=== PATIENT | female | born 1940 | race Caucasian/White ===

== ENCOUNTER 2017-03-17 13:16 | Emergency (ER) | payer MEDICARE, OTHER ==
[2017-03-17 13:24] VITALS: BP 115/64
--- NOTE | 2017-03-17 14:03 | UC ---
Skin Complaint HPI - HPI Summary HPI Summary: NOTICED AN ITCHY SPOT BEHIND LEFT KNEE 2 DAYS AGO. WASN'T SURE WHAT IT WAS. SCRATCHED AT IT A LOT THEN SQUEEZED IT AND TWEEZED IT AND STUCK IT WITH A PIN. NOW HERE CONCERNED IT MAY HAVE BEEN A TICK. NO FEVERS, NINA, MUSCLE ACHES OR JOINT PAIN. - History of Current Complaint Chief Complaint: [employer] Time Seen by Provider: 03/17/17 13:54 Stated Complaint: TICK ON BACK OF KNEE Hx Obtained From: Patient Onset/Duration: Sudden Onset, Lasting Days, Still Present Timing: Constant Onset Severity: Mild Current Severity: None Pain Intensity: 0 Pain Scale Used: 0-10 Numeric Location: Discrete - BEHIND LEFT KNEE Aggravating: Nothing Alleviating: Nothing Associated Signs & Symptoms: Positive: Negative - Allergy/Home Medications Allergies/Adverse Reactions: Allergies Allergy/AdvReac Type Severity Reaction Status Date / Time Chicken Allergy Allergy POSITIVE Verified 03/17/17 13:18 ALLERGY TEST Ibuprofen AdvReac Unknown GI Upset Verified 03/17/17 13:18 NUTS Allergy Unknown INSIDE OF Uncoded 03/17/17 13:18 MOUTH ROUGH ENVIRONMENTAL Allergy POST NASAL Uncoded 03/17/17 13:18 DRIP Review of Systems Constitutional: Negative Skin: Other - BUG BITE BEHIND LEFT KNEE Respiratory: Negative Cardiovascular: Negative Gastrointestinal: Negative Musculoskeletal: Negative All Other Systems Reviewed And Are Negative: Yes PMH/Surg Hx/FS Hx/Imm Hx Respiratory History: Asthma Cancer History: Breast Cancer - Surgical History Surgical History: Yes Surgery Procedure, Year, and Place: SEGMENTAL RIGHT BREAST MASTECTOMY, 1995, Lt BREAST MASTECTOMY 2011. PESSARY - WILL HAVE REMOVED PRIOR TO MRI. CATARACTS - BLACK - Family History Known Family History: Negative: Hypertension, Diabetes - Social History Alcohol Use: None Substance Use Type: None Smoking Status (MU): Never Smoked Tobacco Physical Exam Triage Information Reviewed: Yes Appearance: Well-Appearing, No Pain Distress, Well-Nourished Vital Signs: Initial Vital Signs Temp 97.9 F 03/17/17 13:21 Pulse 64 03/17/17 13:21 Resp 16 03/17/17 13:21 BP 115/64 03/17/17 13:21 Pulse Ox 99 03/17/17 13:21 Vital Signs Reviewed: Yes Eyes: Positive: Conjunctiva Clear ENT: Positive: Hearing grossly normal Neck: Positive: Supple Respiratory: Positive: No respiratory distress, No accessory muscle use Cardiovascular: Positive: Pulses Normal Abdomen Description: Positive: Soft Musculoskeletal: Positive: No Edema Neurological: Positive: Alert Psychological: Positive: Age Appropriate Behavior Skin: Positive: Other - 2MM EXCORIATED SPOT LEFT POPLITEAL FOSSA. NO SURROUNDING ERYTHEMA. NO DRAINAGE. NOT TENDER Course/Dx - Diagnoses Provider Diagnoses: INSECT BITE Discharge - Discharge Plan Condition: Stable Disposition: HOME Patient Education Materials: Insect Bite or Sting (ED) Referrals: Sparkle Cancino MD [Primary Care Provider] - If Needed Additional Instructions: NO SIGN OF A TICK AT THE MOMENT. YOUR SKIN LESION MAY BE FROM A TICK BITE OR ANY OTHER INSECT. NO INTERVENTION REQUIRED AT PRESENT. BE VIGILANT OF YOUR SYMPTOMS AND SEEK FOLLOW-UP IF YOU DEVELOP SPREADING REDNESS OF THE SKIN, PURULENT DRAINAGE, FEVER, INCREASED PAIN OR ANY OTHER CONCERNING SYMPTOMS. SYMPTOMS OF LYME INCLUDE FEVER, HEADACHE, JOINT PAIN, MUSCLE ACHES, TARGET RASH AND OVERALL MALAISE.
== END 2017-03-17 14:11 | disposition home or self-care (01) ==
LOC: UCEAST 13:16
DX: S80.262A Insect bite (nonvenomous), left knee, initial encounter (principal); W57.XXXA Bitten or stung by nonvenomous insect and other nonvenomous arthropods, initial encounter; Y93.9 Activity, unspecified; Y92.9 Unspecified place or not applicable; J45.909 Unspecified asthma, uncomplicated; Z88.6 Allergy status to analgesic agent; Z85.3 Personal history of malignant neoplasm of breast; Z90.13 Acquired absence of bilateral breasts and nipples
CPT/HCPCS: 99211; G0463

== ENCOUNTER 2018-11-02 08:18 | Emergency (ER) | payer MEDICARE, OTHER ==
[2018-11-02 08:30] VITALS: BP 132/72
--- OUTSIDE RECORDS SUMMARY | 2018-11-02 08:45 | XMS REPORT | Continuity of Care Document ---
:1940 External Reference #:[id number] Author Name Jessi Falk MD Address [address] [facility] [place] [address] Care Team Providers Name Role Phone Nila Cancino Primary Care Physician Unavailable Payers Date Identification Numbers Payment Provider Subscriber Policy Number: [id number] [place] Verena Velasco PayID: [id number] [address] [address] [place] [address] Policy Number: [id number] [facility]co Group Number: [id number] [address] PayID: [id number] [place] [address] Advance Directives Description No Information Available Problems Date Description Provider Status Onset: 11/17/2011 Personal history of primary Gay Mccormick MD Active malignant neoplasm of breast Onset: 11/17/2011 Midline cystocele Gay Mccormick MD Active Onset: 08/16/2012 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 Family History Date Family Member(s) Observation Comments Father due to Heart Disease () Mother due to Old Age () Number of Children 2 First Son A&W First Daughter Skin Cancer Melanoma Number of Siblings Siblings: 2 First Brother due to Stomach Cancer () Second Brother Pacemaker Second Brother due to Parkinsons () Paternal Grandfather due to Unknown Causes () Paternal Grandmother due to Unknown Causes () Maternal Grandfather due to Unknown Causes () Maternal Grandmother due to Old Age () Social History Type Date Description Comments Sex Unknown Marital Status Patient is Living Situation Patient lives alone Diet Diet is healthy and well balanced 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 Cigarette Use Never smoked cigarettes Alcohol Drinks alcohol occasionally Tobacco Use Start: Unknown Patient has never smoked Drug Use Denies drug use Smoking Status Reviewed: 10/19/18 Patient has never smoked Daily Caffeine Drinks on average 2 cups of coffee a day Exercise Type/Frequency Exercises rarely Current Seat Belt/Car Seat Always uses a seat belt Currently Active The patient is currently not sexually active STD's No STD history Allergies, Adverse Reactions, Alerts Date Description Reaction Status Severity Comments 03/01/2005 Ibuprofen Active Medications Medication Date Status Form Strength Qnty SIG Indications Ordering Provider Fluconazole Active Tablets 150mg 2tabs 1 by Jessikera Velez mouth lacey Falk MD repeat in 72 hours Trimo-M[place]field Active Gel 0.025% 1Tube 1 time Mahriyo 013 weekly SAMUEL Amaral Advair Diskus Active Unknown 000 Aspirin Active Unknown 000 Calcium + D Active Unknown 000 Centrum Active Unknown 000 Carnitine Active Unknown 000 Clarinex Active Unknown 000 Methotrexate Active Unknown 000 Xyzal Allergy Active Unknown 24HR 000 Cipro Hx Tablets 500mg 14tabs take 1 Yara 019 - by mouth Hensley, twice a CNM 019 day x 7 days Nitrofurantoin Hx Capsules 100mg 14caps 1 by Gary Monohyd Macro 019 - mouth Srivastava, twice a CNM 019 day for 7 days Cipro Hx Tablets 500mg 14tabs take 1 Jessi 016 - by mouth Dileep, twice a 016 day x 7 days Ciprofloxacin HCL Hx Tablets 500mg 10tabs take 1 Harsha A. 015 - by mouth Gelber, twice a M.D. 015 day x 5 Trimo-Mansfield Hx Gel 0.025% 1Tube 1 time Gay 013 - weekly Nikkhah Balaji Mccormick MD Nasonex Hx Unknown Intranasal [place] 000 - 012 Fosamax 00/00/0 Hx Unknown 000 - 009 Fosamax Hx Unknown - 012 Claritin Hx Unknown - 013 Tamoxifen Citrate Hx Unknown - 018 Desloratadine Hx Unknown 000 - 015 Vitamin E Hx Capsules 400Unit Unknown - 015 Jublia Hx Unknown - 018 Medications Administered in Office Medication Date Status Form Strength Qnty SIG Indications Ordering Provider PT SCRN Tbco Administered Injection Jessi Id as Non User 019 MD Dileep Doc Med RSN No Administered Injection Tammy Tbco SCRN 019 SAMUEL Page PT SCRN Tbco Administered Injection Tammy Id as Non User 019 SAMUEL Page PT SCRN Tbco Administered Injection Jessi Id as Non User 018 MD Dileep PT SCRN Tbco Administered Injection Jessi Id as Non User 018 MD Dileep Immunizations Description No Information Available Vital Signs Date Vital Result Comment 10/19/2018 10:54am BP Systolic 124 mmHg BP Diastolic 60 mmHg Height 66 inches 5'6" Weight 143.00 lb BMI (Body Mass Index) 23.1 kg/m2 Last Menstrual Period 4650191 3 Parity 2 09/03/2018 2:51pm BP Systolic 116 mmHg BP Diastolic 60 mmHg Body Temperature 97.4 F Height 66 inches 5'6" Weight 145.00 lb BMI (Body Mass Index) 23.4 kg/m2 Last Menstrual Period 4407630 3 Parity 2 07/18/2018 9:08am BP Systolic 122 mmHg BP Diastolic 66 mmHg Height 66 inches 5'6" Weight 145.00 lb BMI (Body Mass Index) 23.4 kg/m2 3 Parity 2 03/26/2018 2:39pm BP Systolic 124 mmHg BP Diastolic 66 mmHg Height 66.25 inches 5'6.25" Weight 142.00 lb BMI (Body Mass Index) 22.7 kg/m2 05/17/2017 8:53am BP Systolic 110 mmHg BP Diastolic 64 mmHg Height 66.25 inches 5'6.25" Weight 136.00 lb BMI (Body Mass Index) 21.8 kg/m2 Last Menstrual Period [id number] 3 Parity 2 01/24/2017 10:17am BP Systolic 110 mmHg BP Diastolic 60 mmHg Height 66.25 inches 5'6.25" Weight 133.00 lb BMI (Body Mass Index) 21.3 kg/m2 Last Menstrual Period 1218869 3 Parity 2 10/25/2016 11:12am BP Systolic 120 mmHg BP Diastolic 64 mmHg Height 66.25 inches 5'6.25" Weight 131.00 lb BMI (Body Mass Index) 21.0 kg/m2 Last Menstrual Period 6936736 3 Parity 2 07/05/2016 1:21pm BP Systolic 118 mmHg BP Diastolic 60 mmHg Height 66.25 inches 5'6.25" Weight 136.00 lb BMI (Body Mass Index) 21.8 kg/m2 Last Menstrual Period 1038523 3 Parity 2 05/23/2016 10:37am BP Systolic 120 mmHg BP Diastolic 60 mmHg Height 66.25 inches 5'6.25" Weight 134.00 lb BMI (Body Mass Index) 21.5 kg/m2 Last Menstrual Period 7254694 3 Parity 2 03/07/2016 11:11am BP Systolic 122 mmHg BP Diastolic 58 mmHg Height 66.25 inches 5'6.25" Weight 134.00 lb BMI (Body Mass Index) 21.5 kg/m2 Last Menstrual Period 1825413 3 Parity 2 12/14/2015 2:00pm BP Systolic 126 mmHg BP Diastolic 72 mmHg Height 66.25 inches 5'6.25" Weight 140.00 lb BMI (Body Mass Index) 22.4 kg/m2 Last Menstrual Period 5600990 3 Parity 2 11/19/2015 12:53pm BP Systolic 110 mmHg BP Diastolic 64 mmHg Height 66.25 inches 5'6.25" Weight 139.00 lb BMI (Body Mass Index) 22.3 kg/m2 Last Menstrual Period 6420182 3 Parity 2 08/17/2015 12:41pm BP Systolic 116 mmHg BP Diastolic 64 mmHg Height 66.25 inches 5'6.25" Weight 140.00 lb last visit BMI (Body Mass Index) 22.4 kg/m2 Last Menstrual Period 1862128 3 Parity 2 07/07/2015 11:18am BP Systolic 122 mmHg BP Diastolic 66 mmHg Height 66.25 inches 5'6.25" Weight 140.00 lb BMI (Body Mass Index) 22.4 kg/m2 Last Menstrual Period 5833631 3 Parity 2 04/14/2015 1:50pm BP Systolic 116 mmHg BP Diastolic 58 mmHg Height 66.25 inches 5'6.25" Weight 132.00 lb BMI (Body Mass Index) 21.1 kg/m2 Last Menstrual Period 6033709 3 Parity 2 01/09/2015 3:22pm BP Systolic 124 mmHg BP Diastolic 60 mmHg Height 67.5 inches 5'7.50" Weight 139.00 lb BMI (Body Mass Index) 21.4 kg/m2 Last Menstrual Period 2435175 3 Parity 2 12/04/2014 12:50pm BP Systolic 118 mmHg BP Diastolic 68 mmHg Height 67.5 inches 5'7.50" Weight 139.00 lb BMI (Body Mass Index) 21.4 kg/m2 Last Menstrual Period 0558098 3 Parity 2 09/30/2014 1:47pm BP Systolic 120 mmHg BP Diastolic 72 mmHg Height 67.5 inches 5'7.50" Weight 140.00 lb BMI (Body Mass Index) 21.6 kg/m2 Last Menstrual Period 7217698 3 Parity 2 04/08/2014 9:39am BP Systolic 104 mmHg BP Diastolic 62 mmHg Height 67.5 inches 5'7.50" Weight 136.00 lb BMI (Body Mass Index) 21.0 kg/m2 3 Parity 2 12/04/2013 1:58pm BP Systolic 118 mmHg BP Diastolic 76 mmHg Height 67 inches 5'7" Weight 139.00 lb BMI (Body Mass Index) 21.8 kg/m2 3 Parity 2 09/12/2013 2:01pm BP Systolic 112 mmHg BP Diastolic 64 mmHg Height 67 inches 5'7" Weight 138.00 lb BMI (Body Mass Index) 21.6 kg/m2 3 Parity 2 06/13/2013 2:14pm BP Systolic 100 mmHg BP Diastolic 56 mmHg Height 67 inches 5'7" Weight 138.00 lb BMI (Body Mass Index) 21.6 kg/m2 3 Parity 2 03/14/2013 1:42pm BP Systolic 106 mmHg BP Diastolic 62 mmHg Height 67 inches 5'7" Weight 131.00 lb BMI (Body Mass Index) 20.5 kg/m2 3 Parity 2 01/16/2013 11:42am BP Systolic 122 mmHg BP Diastolic 72 mmHg Weight 134.00 lb 12/07/2012 9:10am BP Systolic 108 mmHg BP Diastolic 68 mmHg Height 67 inches 5'7" Weight 136.00 lb BMI (Body Mass Index) 21.3 kg/m2 3 Parity 2 11/23/2012 9:46am BP Systolic 110 mmHg BP Diastolic 60 mmHg Height 67 inches 5'7" Weight 136.00 lb BMI (Body Mass Index) 21.3 kg/m2 3 Parity 2 10/17/2012 11:05am BP Systolic 114 mmHg BP Diastolic 72 mmHg Height 67 inches 5'7" Weight 135.00 lb BMI (Body Mass Index) 21.1 kg/m2 3 Parity 2 09/12/2012 9:24am BP Systolic 122 mmHg BP Diastolic 80 mmHg Height 67 inches 5'7" Weight 138.00 lb BMI (Body Mass Index) 21.6 kg/m2 3 Parity 2 08/21/2012 9:16am BP Systolic 114 mmHg BP Diastolic 76 mmHg Height 67 inches 5'7" Weight 139.00 lb BMI (Body Mass Index) 21.8 kg/m2 3 Parity 2 08/16/2012 1:24pm BP Systolic 112 mmHg BP Diastolic 68 mmHg Height 67 inches 5'7" Weight 140.00 lb BMI (Body Mass Index) 21.9 kg/m2 3 Parity 2 08/09/2011 1:23pm BP Systolic 108 mmHg BP Diastolic 70 mmHg Height 67 inches 5'7" Weight 138.00 lb BMI (Body Mass Index) 21.6 kg/m2 3 Parity 2 06/14/2010 9:48am BP Systolic 118 mmHg BP Diastolic 82 mmHg Height 66.75 inches 5'6.75" Weight 138.00 lb BMI (Body Mass Index) 21.8 kg/m2 3 Parity 2 03/17/2010 1:22pm BP Systolic 120 mmHg BP Diastolic 62 mmHg Height 67 inches 5'7" Weight 136.00 lb BMI (Body Mass Index) 21.3 kg/m2 3 Parity 2 06/09/2009 9:35am BP Systolic 120 mmHg BP Diastolic 60 mmHg Height 68.25 inches 5'8.25" Weight 153.00 lb BMI (Body Mass Index) 23.1 kg/m2 3 Parity 2 04/13/2009 7:49am BP Systolic 100 mmHg BP Diastolic 60 mmHg Height 68.25 inches 5'8.25" Weight 146.00 lb BMI (Body Mass Index) 22.0 kg/m2 3 Parity 2 05/27/2008 1:42pm BP Systolic 118 mmHg BP Diastolic 64 mmHg Height 68.25 inches 5'8.25" Weight 150.00 lb BMI (Body Mass Index) 22.6 kg/m2 Last Menstrual Period 0 Approx 16 yrs ago 3 Parity 2 04/08/2008 9:38am BP Systolic 126 mmHg BP Diastolic 68 mmHg Height 68.25 inches 5'8.25" Weight 149.00 lb BMI (Body Mass Index) 22.5 kg/m2 Last Menstrual Period 0 approx 16 yrs ago 04/20/2007 1:18pm BP Systolic 112 mmHg BP Diastolic 68 mmHg Height 68.25 inches 5'8.25" Weight 147.00 lb BMI (Body Mass Index) 22.2 kg/m2 03/31/2006 2:54pm BP Systolic 120 mmHg BP Diastolic 70 mmHg Height 68 inches 5'8" Weight 141.00 lb BMI (Body Mass Index) 21.4 kg/m2 03/01/2005 1:05pm BP Systolic 120 mmHg BP Diastolic 72 mmHg Height 68 inches 5'8" Weight 137.00 lb BMI (Body Mass Index) 20.8 kg/m2 4 Parity 3 Results Test Date Facility Test Result H/L Range Note Urine Culture And 09/21/2018 [facility] Urine Culture SEE RESULT 1 [place] [address] BELOW [phone] Urine Culture And 12/15/2015 [facility] Urine Culture SEE RESULT 2 [place] [address] BELOW [phone] Laboratory test 08/17/2015 [facility] Cytology SEE RESULT 3 [place] [address] BELOW [phone] Human Papilloma Virus Rna Negative N Negative 4 Laboratory test 07/07/2015 [facility] Culture Genital & SEE RESULT 5 [place] [address] Sensitivity BELOW [phone] Urine Culture And 12/04/2014 [facility] Urine Culture (SEE NOTE ) 6 [place] [address] [phone] Laboratory test 08/09/2011 [facility] Cytology [address] [place] [address] ----- <SEE [phone] NOTE> Laboratory test 06/14/2010 [facility] Cytology [address] [place] [address] ----- <SEE [phone] NOTE> Laboratory test 06/09/2009 [facility]ology [address] [place] [address] ----- <SEE [phone] NOTE> Laboratory test 05/27/2008 [facility] Cytology [address] [place] [address] ----- <SEE [phone] NOTE> Laboratory test 04/20/2007 [facility] Cytology [address] [place] [address] ----- <SEE [phone] NOTE> Laboratory test 04/04/2006 [facility] Cytology [address] [place] [address] ----- <SEE [phone] NOTE> 1 SEE RESULT BELOW Name: VERENA VELASCO : [address]: Lauren Hensley [facility] Acct: [id number] Unit: [id number] AGE: 78 Location: [facility] Re09/21/18 SEX: F Status: REG REF SPEC: [id number] ANKITA: 09/21/18-[address]: Lauren Hensley [facility] REQ: [id number] RECD: 09/21/18 STATUS: COMP _ SOURCE: URINE [facility]: ORDERED: Urine Culture COMMENTS: [id number] Urine Source: Random Procedure Result Reported Site Urine Culture Final 09/23/18- 0823 ML Organism 1 ESCHERICHIA COLI [place] Count >100,000 (Many) CFU/ML 1. ESCHERICHIA COLI M.I.C. RX --------- ------ Ampicillin 8 S Cefazolin <=4 S Cefepime <=1 S Ceftriaxone <=1 S Ciprofloxacin <=0.25 S Gentamicin <=1 S Levofloxacin <=0.12 S Meropenem <=0.25 S Nitrofurantoin 32 S Tetracycline <=1 S Pipercillin/Tazobactam <=4 S Trimethoprim/Sulfamethoxazole <=20 S Amoxicillin/Clavulanic Acid <=2 S Aztreonam <=1 S Contact the Microbiology Department for any additional antibiotic reporting. * ML - Main Lab . END OF REPORT DEPARTMENT OF PATHOLOGY, [address] [place] [address] Shmuel Velazquez M.D. Director [facility] # [id number] 2 SEE RESULT BELOW Name: VERENA VELASCO : [address]: Olena Irizarry NP Acct: [id number] Unit: [id number] AGE: 75 Location: [facility] Re12/15/15 SEX: F Status: REG REF SPEC: [id number] ANKITA: 12/15/15-1038 [facility] DR: Olena Irizarry NP REQ: [id number] RECD: 12/15/15 STATUS: COMP _ SOURCE: URINE SPDESC: ORDERED: Urine Culture COMMENTS: [id number] Procedure Result Reported Site Urine Culture Final 12/18/15- 904 ML Organism 1 ENTEROCOCCUS FAECALIS [place] Count 10-25,000 (Moderate) CFU/ML 1. ENTEROCOCCUS FAECALIS M.I.C. RX --------- ------ Ampicillin <=2 S Penicillin 2 S Ciprofloxacin <=0.5 S Gentamicin High Level S Levofloxacin 0.5 S Linezolid 2 S Nitrofurantoin <=16 S * Quinupristin/Dalfopristin 4 R * Streptomycin High Level S Tetracycline >=16 R Tigecycline <=0.12 S Vancomycin 2 S Imipenem-Deduced S * Ampicillin/Sulbactam-Deduced S * These antibiotics are not available in the [facility] Formulary Contact the Microbiology Department for any additional antibiotic reporting. * ML - MAIN LAB (PSYCHIATRIC1) . END OF REPORT * ML=Testing performed at Main Lab DEPARTMENT OF PATHOLOGY, [address] [place] [address] Shmuel Velazquez M.D. Director [facility] # [id number] 3 SEE RESULT BELOW Name: VERENA VELASCO : [address]: Jessi Falk MD Acct: [id number] Unit: [id number] AGE: 75 Location: [facility] Re08/17/15 SEX: F Status: REG REF SPEC: [id number] ANKITA: 08/17/[address] [facility] [address]: Jessi Falk MD REQ: [id number] RECD: 08/17/15 STATUS: SOUT _ ORDERED: IMAGE ANALYSIS, HPV/Thin Prep FINAL DIAGNOSIS Negative for Intraepithelial lesion or Malignancy A. Ectocervical/Endocervical Specimen Adequacy: Satisfactory of evaluation Transformation zone component identified Patient Information: HPV: High risk HPV RNA testing regardless of pap results. Actual Specimen Date: 08/17/15 LMP If Unknown: 1995 Date of Last Specimen: 08/09/11 Post Menopausal?: Y Date Time Test Result Flag (u) Normal Range 08/17/15 1334 HPV RNA Negative Negative The high-risk HPV types detected by the assay include: 16, 18, 31, 33, 35, 39, 45, 51, 52, 56, 58, 59, 66, and 68. Signed (signature on file) CHARLEE Salgado (ASCP) 08/18 1416 This Pap test was evaluated with the assistance of the [employer] Test Imaging System. Due to cytologic findings at the customer sales service manager microscope, comprehensive manual rescreening by a Department Operations Manager may be required. The Pap Smear is a screening test designed to aid in the detection of premalignant and malignant conditions of the uterine cervix. It is not a diagnostic procedure and should not be used as the sole means of detecting cervical cancer. Both false- positive and false- negative reports do occur. Depending on your risk status, a Pap smear should be obtained and evaluated every 1-3 years. END OF REPORT * ML=Testing performed at Main Lab DEPARTMENT OF PATHOLOGY, [address] [place] [address] Shmuel Velazquez M.D. Director [facility] # [id number] 4 The high-risk HPV types detected by the assay include: 16, 18, 31, 33, 35, 39, 45, 51, 52, 56, 58, 59, 66, and 68. 5 SEE RESULT BELOW Name: VERENA VELASCO Dre : [address]: Olena Irizarry NP Acct: [id number] Unit: [id number] AGE: 75 Location: [facility] Re07/07/15 SEX: F Status: REG REF SPEC: [id number] ANKITA: 07/07/15-1252 [facility] [address]: Olena Irizarry NP REQ: [id number] RECD: 07/07/15 STATUS: COMP _ SOURCE: VAGINAL SPDESC: ORDERED: Genital Culture Procedure Result Reported Site Genital Culture Final 07/09/15- 1130 ML Organism 1 NORMAL CLEMENTE Quantity 3+ * ML - MAIN LAB (PSYCHIATRIC1) . END OF REPORT * ML=Testing performed at Main Lab DEPARTMENT OF PATHOLOGY, [facility] [employer] [place], [place] [address] Shmuel Velazquez M.D. Director [facility] # [id number] 6 RUN DATE: 12/07/14 [facility] LAB LIVE PAGE 1 RUN TIME: 827 [facility] [employer] [place], [place] [address] Specimen Inquiry Name: VERENA VELASCO : [address]: Olena Irizarry NP Acct: [id number] Unit: [id number] AGE: 74 Location: [facility] Re12/04/14 SEX: F Status: REG REF SPEC: [id number] ANKITA: 12/04/14-8 [facility] [address]: Olena Irizarry NP REQ: [id number] RECD: 12/04/14 STATUS: COMP _ SOURCE: URINE SPDESC: ORDERED: Urine Culture QUERIES: Provider Requisition # [id number] Procedure Result Verified Site Urine Culture Final 12/07/14- 826 ML Organism 1 ENTEROCOCCUS SPECIES GP D Chino Count 75-100,000 (Many) CFU/ML 1. ENTEROCOCCUS SPECIES GP D M.I.C. RX --------- ------ Ampicillin <=2 S Penicillin 2 S Ciprofloxacin <=0.5 S Gentamicin High Level S Levofloxacin 1 S Linezolid 2 S Nitrofurantoin <=16 S * Quinupristin/Dalfopristin 4 R * Streptomycin High Level S Tetracycline >=16 R Tigecycline <=0.12 S Vancomycin 2 S Imipenem-Deduced S * Ampicillin/Sulbactam-Deduced S * These antibiotics are not available in the [facility] Formulary Contact the Microbiology Department for any additional antibiotic reporting. * ML - MAIN LAB ([facility]) . END OF REPORT * ML=Testing performed at Main Lab DEPARTMENT OF PATHOLOGY, [address] [place] [address] Shmuel Velazquez M.D. Director [facility] # [id number] 7 --- RUN DATE: 08/10/11 [facility] NMI LIVE PAGE 1 RUN TIME: 1600 Specimen Inquiry RUN USER: INTERFACE -- Name: VERENA VELASCO Dre Hawkins#: [id number] Status: REG REF Re08/09/11 Age/Sex: 71/F Unit#: [id number] Location: [facility] : 38 -- Specimen: [id number] SOUT Spec Date: 08/09/[address]: Gay Mccormick Spec Type: CYTOLOGY Received: 08/10/11-1254 Copies to: SOURCE ECTOCERVICAL/ENDOCERVICAL Thin Prep with Reflex HPV Test PATIENT INFORMATION ACTUAL COLLECTION DATE: 08/09/11 POST MENOPAUSAL? Yes DATE OF PRIOR SPECIMEN: 06/14/10 ADEQUACY OF SPECIMEN Satisfactory for evaluation * Transformation zone component cannot be definitely identified due to prese nce * of atrophy or other hormonal changes. * DIAGNOSIS NEGATIVE FOR INTRAEPITHELIAL LESION OR MALIGNANCY * This Pap test was evaluated with the assistance of the [employer] Pap Test Imaging System. The Pap Smear is a screening test designed to aid in the detection of premalign ant and malignant conditions of the uterine cervix. It is not a diagnostic procedure a nd should not be used as the sole means of detecting cervical cancer. Both false- positiv e and false-negative reports do occur. Depending on your risk status, a Pap smear irwin uld be obtained and evaluated every one to three years. Initial evaluation performed by Kvng COLEMAN([facility]) 08/10/11 Final Interpretation electronically signed by: Kvng COLEMAN([facility]) 08/10/11 1558 -- -- DEPARTMENT OF PATHOLOGY, [address] [place] [address] [facility] Permit #[id number] Shmuel Velazquez M.D. Director Bar Obrien M.D. Mobility Scooter Repairer Dir rody -- 8 --- RUN DATE: 06/15/10 [facility] NMI LIVE PAGE 1 RUN TIME: 1201 Specimen Inquiry RUN USER: INTERFACE -- Name: RODVERENA Accanne#: [id number] Status: REG REF Re06/14/10 Age/Sex: 70/F Unit#: [id number] Location: [facility] : 38 -- Specimen: [id number] SOUT Spec Date: 06/14/[address]: Ina becker MD Spec Type: CYTOLOGY Received: 06/15/10-3729 Copies to: SOURCE ECTOCERVICAL/ENDOCERVICAL Thin Prep with Reflex HPV Test PATIENT INFORMATION ACTUAL COLLECTION DATE: 06/14/10 ? No POST MENOPAUSAL? Yes HYSTERECTOMY? No DATE OF PRIOR SPECIMEN: 06/09/09 ADEQUACY OF SPECIMEN Satisfactory for evaluation * Transformation zone component cannot be definitely identified due to prese nce * of atrophy or other hormonal changes. * DIAGNOSIS NEGATIVE FOR INTRAEPITHELIAL LESION OR MALIGNANCY * This Pap test was evaluated with the assistance of the ThinPrep Pap Test Imaging System. The Pap Smear is a screening test designed to aid in the detection of premalign ant and malignant conditions of the uterine cervix. It is not a diagnostic procedure a nd should not be used as the sole means of detecting cervical cancer. Both false- positiv e and false-negative reports do occur. Depending on your risk status, a Pap smear irwin uld be obtained and evaluated every one to three years. Final Interpretation electronically signed by: Sarath CONTRERAS(ASCP) 06/15/10 115 9 -- -- DEPARTMENT OF PATHOLOGY, [address] [place] [address] [facility] #[id number] Shmuel Velazquez M.D. Director Bar Obrien M.D. Mobility Scooter Repairer rody -- 9 --- RUN DATE: 06/10/09 [facility] NMI LIVE PAGE 1 RUN TIME: 1042 Specimen Inquiry RUN USER: INTERFACE -- Name: VERENA VELASCO#: [id number] Status: REG REF Re06/09/09 Age/Sex: 69/F Unit#: [id number] Location: [facility] : 38 -- Specimen: [id number] SOUT Spec Date: 06/09/[address]: Ina becker MD Spec Type: CYTOLOGY Received: 06/10/09-899 Copies to: SOURCE ECTOCERVICAL/ENDOCERVICAL Thin Prep with Reflex HPV Test PATIENT INFORMATION ACTUAL COLLECTION DATE: 06/09/09 DATE OF PRIOR SPECIMEN: 05/27/08 PATIENT HISTORY: normal ADEQUACY OF SPECIMEN Satisfactory for evaluation * Transformation zone component cannot be definitely identified due to prese nce * of atrophy or other hormonal changes. * DIAGNOSIS NEGATIVE FOR INTRAEPITHELIAL LESION OR MALIGNANCY * This Pap test was evaluated with the assistance of the [employer] Pap Test Imaging System. The Pap Smear is a screening test designed to aid in the detection of premalign ant and malignant conditions of the uterine cervix. It is not a diagnostic procedure a nd should not be used as the sole means of detecting cervical cancer. Both false- positiv e and false-negative reports do occur. Depending on your risk status, a Pap smear irwin uld be obtained and evaluated every one to three years. Final Interpretation electronically signed by: Sarath CONTRERAS(ASCP) 06/10/09 104 1 -- -- DEPARTMENT OF PATHOLOGY, [address] [place] [address] [facility] Permit #[id number] Shmuel Velazquez M.D. Director Bar [place]rien M.D. Mobility Scooter Repairer Dir rody -- 10 ---- RUN DATE: 05/28/08 [facility] NMI LIVE PAGE 1 RUN TIME: 1508 Specimen Inquiry RUN USER: INTERFACE -- Name: VERENA VELASCO#: [id number] Status: REG REF Re05/27/08 Age/Sex: 67/F Unit#: [id number] Location: [facility] : 36 -- Specimen: [id number] ANITA Spec Date: 05/27/[address]: Yo almazan Jr, MD Spec Type: CYTOLOGY Received: 05/28/08-1127 Copies to: SOURCE ECTOCERVICAL/ENDOCERVICAL Thin Prep with Reflex HPV Test PATIENT INFORMATION ACTUAL COLLECTION DATE: 05/27/08 POST MENOPAUSAL? Yes DATE OF PRIOR SPECIMEN: 04/20/07 PATIENT HISTORY: Last menstrual period 16 yrs. ADEQUACY OF SPECIMEN Satisfactory for evaluation * Transformation zone component cannot be definitely identified due to prese nce * of atrophy or other hormonal changes. * DIAGNOSIS NEGATIVE FOR INTRAEPITHELIAL LESION OR MALIGNANCY * This Pap test was evaluated with the assistance of the [employer] Pap Test Imaging System. The Pap Smear is a screening test designed to aid in the detection of premalign ant and malignant conditions of the uterine cervix. It is not a diagnostic procedure a nd should not be used as the sole means of detecting cervical cancer. Both false- positive and false-negative reports do occur. Depending on your risk status, a Pap smear irwin uld be obtained and evaluated every one to three years. Final Interpretation electronically signed by: Sarath CONTRERAS(ASCP) 05/28/08 150 8 -- -- DEPARTMENT OF PATHOLOGY, [address] [place] [address] [facility] Permit #[id number] Shmuel Velazquez M.D. Director of Laboratories -- 11 ---- RUN DATE: 04/25/07 [facility] NMI LIVE PAGE 1 RUN TIME: 1052 Specimen Inquiry RUN USER: INTERFACE [id number] VERENA VELASCO 66/F <REG REF 04/20> ([id number]) Yo Guzman Jr, MD -- Specimen: [id number] SOUT Spec Date: 04/20/[address]: Yo almazan Jr, MD Spec Type: CYTOLOGY Received: 04/24/07-6276 Copies to: SOURCE ECTOCERVICAL/ENDOCERVICAL Thin Prep with Reflex HPV Test PATIENT INFORMATION ACTUAL COLLECTION DATE: 04/20/07 ADEQUACY OF SPECIMEN Satisfactory for evaluation * Transformation zone component cannot be definitely identified due to prese nce * of atrophy or other hormonal changes. * DIAGNOSIS NEGATIVE FOR INTRAEPITHELIAL LESION OR MALIGNANCY * This Pap test was evaluated with the assistance of the [employer] Pap Test Imaging System. The Pap Smear is a screening test designed to aid in the detection of premalign ant and malignant conditions of the uterine cervix. It is not a diagnostic procedure a nd should not be used as the sole means of detecting cervical cancer. Both false- positive and false-negative reports do occur. Depending on your risk status, a Pap smear irwin uld be obtained and evaluated every one to three years. Final Interpretation electronically signed by: Kvng COLEMAN(ASCP) 04/25/07 1052 -- -- DEPARTMENT OF PATHOLOGY, [address] [place] [address] [facility] Permit #[id number] Shmuel Velazquez M.D. Director of Laboratories Filiberto Perez II, M.D . Pathologist -- 12 ---- RUN DATE: 04/07/06 [facility] NMI LIVE PAGE 1 RUN TIME: 1451 Specimen Inquiry RUN USER: INTERFACE [id number] VERENA VELASCO 65/F <REG REF 03/31> ([id number]) Lorena Guzman MD. -- Specimen: [id number] SOUT Spec Date: 03/31/[address]: Lorena Hurtado Jr., MD. Spec Type: CYTOLOGY Received: 04/07/06-1038 Copies to: SOURCE ECTOCERVICAL/ENDOCERVICAL Thin Prep with Reflex HPV Test PATIENT INFORMATION ACTUAL COLLECTION DATE: 03/31/06 POST MENOPAUSAL? Yes PREVIOUS ABNORMAL PAP SMEARS No DATE OF PRIOR SPECIMEN: 03/01/05 PREVIOUS CYTOLOGY/SURGICAL SPECIMEN #: [id number] ADEQUACY OF SPECIMEN Satisfactory for evaluation * Transformation zone component cannot be definitely identified due to prese nce * of atrophy or other hormonal changes. * DIAGNOSIS NEGATIVE FOR INTRAEPITHELIAL LESION OR MALIGNANCY * The Pap Smear is a screening test designed to aid in the detection of premalign ant and malignant conditions of the uterine cervix. It is not a diagnostic procedure an d should not be used as the sole means of detecting cervical cancer. Both false-positive and false-negative reports do occur. Depending on your risk status, a Pap smear irwin uld be obtained and evaluated every one to three years. Signed Sarath CONTRERAS CT([facility]) 04/07/06 -- -- DEPARTMENT OF PATHOLOGY, [address] [place] [address] [facility] Permit #[id number] Filiberto Perez II, M.D. Director Shmuel Velazquez M.D. [employer]r Sarath irector -- Procedures Date Code Description Status 03/31/2018 [id number] Mammogram Completed 07/31/2013 [id number] Bone Mineral Density Test Completed 08/16/2012 72214 Fitting & Insertion Of Pessary/Intravaginal Support Completed Device 07/31/2012 [id number] Colonoscopy Completed Encounters Type Date Location Provider Dx Diagnosis Office Visit 10/19/2018 [facility] Alvina Gutierrez.4 Uterovaginal prolapse, 11:00a unspecified B37.3 Candidiasis of vulva and vagina Office Visit 09/03/2018 3:00p [facility] Tammy Page, R30.0 Dysuria CNM Office Visit 07/18/2018 9:00a [facility] Jessi Carr81.4 Uterovagintyesha Falk MD prolapse, unspecified Office Visit 03/26/2018 2:30p [facility] Jessi Carr81.4 Mariana Falk MD prolapse, unspecified Office Visit 05/17/2017 9:00a [facility] Jessi Carr81.4 Navavagintyesha Falk MD prolapse, unspecified Office Visit 01/24/2017 10:30a [facility] Jessi Tinsley.4 Uterovagintyesha Falk MD prolapse, unspecified Office Visit 10/25/2016 11:30a [facility] Jessi Carr81.4 Navavagintyesha Falk MD prolapse, unspecified Office Visit 07/05/2016 1:30p [facility] Jessi Tinsley.4 Bayleegintyesha Falk MD prolapse, unspecified Office Visit 05/23/2016 3:20p [facility] Bruno Frederick81.4 Uterovaginal ANP-C prolapse, unspecified Office Visit 05/23/2016 11:20a [facility] Alvina Frederick.4 Uterovaginal ANP-C prolapse, unspecified Office Visit 03/07/2016 11:30a [facility] Jessi Carr81.4 Uterovagintyesha Falk MD prolapse, unspecified Office Visit 12/14/2015 2:30p [facility] Olena Irizarry NP R30.0 Dysuria Office Visit 11/19/2015 1:00p [facility] Jessi Carr81.4 Uterovagintyesha Falk MD prolapse, unspecified Office Visit 08/17/2015 1:00p [facility] Jessi Carr81.4 Uterovagintyesha Falk MD prolapse, unspecified Office Visit 07/07/2015 11:30a [facility] Olena Irizarry NP N81.4 Uterovaginal prolapse, unspecified Office Visit 04/14/2015 2:00p [facility] Jessi N81.4 Uterovaginal MD Dileep prolapse, unspecified Office Visit 01/09/2015 3:30p [facility] Jessi N81.4 Uterovaginal MD Dileep prolapse, unspecified Office Visit 12/04/2014 1:00p [facility] Olena Irizarry NP 618.4 Prolapse Uterovaginal Unspec 788.1 Dysuria Office Visit 09/30/2014 2:00p [facility] Jessi 618.4 Prolapse MD Dileep Uterovaginal Unspec Office Visit 04/08/2014 9:30a [facility] Jessi 618.4 Prolapse MD Dileep Uterovaginal Unspec Office Visit 12/04/2013 2:00p [facility] Jessi 618.4 Prolapse MD Dileep Uterovaginal Unspec Office Visit 09/12/2013 2:00p [facility] Jessi 618.4 Prolapse MD Dileep Uterovaginal Unspec Office Visit 06/13/2013 2:30p [facility] Gay Franco 618.01 Cystocele , Midline MD Jace 618.4 Prolapse Uterovaginal Unspec Office Visit 03/14/2013 2:00p [facility] Gay Franco 618.01 Cystocele , Midline MD Jace 618.4 Prolapse Uterovaginal Unspec Office Visit 01/16/2013 11:45a [facility] Gay Franco 618.01 Cystocele , Midline MD Jace 618.4 Prolapse Uterovaginal Unspec Office Visit 12/07/2012 9:15a [facility] Gay Franco 618.4 Prolapse MD Jace Uterovaginal Unspec Office Visit 11/23/2012 10:20a [facility] Soledad Cancino 618.01 Cystocele, Midline ANP-C 618.4 Prolapse Uterovaginal Unspec Office Visit 10/17/2012 11:00a [facility] Gay Franco 618.01 Cystocele , Midline MD Jace 618.4 Prolapse Uterovaginal Unspec Office Visit 09/12/2012 9:30a [facility] Gay Franco 618.01 Cystocele , Midline MD Jace 618.4 Prolapse Uterovaginal Unspec Office Visit 08/21/2012 9:30a [facility] Gay Franco 618.01 Cystocele , Midline MD Jace 618.4 Prolapse Uterovaginal Unspec Office Visit 08/16/2012 1:30p [facility] Gay Franco 618.01 Cystocele , Midline MD Jace 618.4 Prolapse Uterovaginal Unspec 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 Examination V76.2 Screening Malignant Neoplasm Cervix V76.41 Screening Malignant Neoplasm Rectum 627.3 Atrophic Vaginitis Postmenopausal V10.3 History Personal Malignant Neoplasm Breast V15.89 History Personal Health Hazards Spec Other Office Visit 03/17/2010 1:20p [facility] Ina Aly, 618.01 Cystocele, Midline M.D. 627.3 Atrophic Vaginitis Postmenopausal 618.1 Prolapse Uterine W/O Vaginal Wall Prolapse Office Visit 06/09/2009 9:40a [facility] Ina Aly, V72.31 Routine Steel Rod Buster M.D. Examination V76.2 Screening Malignant Neoplasm Cervix V76.41 Screening Malignant Neoplasm Rectum 627.3 Atrophic Vaginitis Postmenopausal V10.3 History Personal Malignant Neoplasm Breast V15.89 History Personal Health Hazards Spec Other Office Visit 04/13/2009 8:00a [facility] Ina Tomas 782.9 Skin & Integumentary Sarah Aly Tissue Other Symptoms Office Visit 05/27/2008 1:20p [facility] Lorena Hurtado V72.31 Routine Steel Rod Buster Sarah SAMPSON Examination V76.2 Screening Malignant Neoplasm Cervix Office Visit 04/08/2008 9:40a [facility] Lorena Low 616.10 Vaginitis & Genesis SAMPSON, Vulvovaginitis Unspec M.D. Office Visit 04/20/2007 1:00p [facility] Lorena Low V72.31 Routine Steel Rod Buster Genesis SAMPSON, Examination M.D. V72.3 Examination Gynecological V76.2 Screening Malignant Neoplasm Cervix Office Visit 03/31/2006 2:40p [facility] Lorena Hurtado V72.31 Routine Steel Rod Buster Sarah SAMPSON Examination V76.2 Screening Malignant Neoplasm Cervix Office Visit 03/01/2005 1:00p [facility] Lorena Hurtado V72.31 Routine Areli SAMPSON M.D. Examination Office Visit 01/19/2004 8:00a [facility] Lorena Hurtado V72.3 Examination Sarah SAMPSON Gynecological Plan of Treatment Future Appointment(s):01/22/2019 2:00 pm - Jessi Falk MD at [facility]10/19/2018 - Jessi Falk MDN81.4 Uterovaginal prolapse, unspecifiedComments:RS pessary removed clenaed and reinserted. Pt tolerated well. PT to retrun in 3-4 months for recheck.B37.3 Candidiasis of vulva and vaginaComments:Pt to treat with diflucan and will repeat treatment in 72 hours. Pt with normal glucose today at 90.
--- OUTSIDE RECORDS SUMMARY | 2018-11-02 08:45 | XMS REPORT | Continuity of Care Document ---
:1940 External Reference #:[id number] Author Name Norma Neena Care Team Providers Name Role Phone Sparkle Cancino MD Care Team Information Insurance Case Manager Unavailable Sparkle Cancino MD Primary Care Physician Unavailable Payers Date Identification Numbers Payment Provider Subscriber Policy Number: [id number] Medicare Verena Velasco PayID: [id number] [address] [place] [address] Effective: 2009 Policy Number: [id number] Medicare Verena Velasco Expires: 2018 PayID: [id number] [address] [place] [address] Policy Number: [id number] [employer] Verena Velasco Group Number: [id number] [address] PayID: [id number] [place] [address] Advance Directives Description No Information Available Problems Date Description Provider Status Onset: 07/16/2009 Osteoporosis Sparkle Cancino M.D. Active Onset: 07/16/2009 Asthma without status asthmaticus Sparkle Cancino M.D. 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 at age 98 First Brother due to Cancer () - Stomach cancer, COPD : (age 89 Second Brother due to Unknown Years) Causes Social History Type Date Description Comments Sex Unknown Marital Status Tobacco Use Start: Unknown Never Smoked Cigarettes ETOH Use Currently consumes 1 drink (gin and alcohol tonic) per day Recreational Drug Use Denies Drug Use Tobacco Use Start: Unknown Patient has never smoked Smoking Status Reviewed: 10/11/18 Patient has never smoked Allergies, Adverse Reactions, Alerts Date Description Reaction Status Severity Comments 07/16/2009 Ibuprofen stomach irritation Active 07/16/2009 Chicken Active 07/16/2009 Nuts Active 07/16/2009 Dust Active 07/16/2009 Mold Active Medications Medication Date Status Form Strength Qnty SIG Indications Ordering Provider Nasonex 03/28 Active Suspension 50mcg/Act 51gm use 1 spray H92. in each Varn, N.P. nostril once daily as needed Centrum Women 01/13 Active Tablets 1 qd Sarah Cancino Desloratadine 01/13 Active Tablets 5mg 30tab 1 by mouth L50.0 s every day Sarah Cancino Vitamin D-1000 08/27 Active Tablets 1000Unit 180ta 3 po qd bs Jessie Cancino M.D. Calcium 600 08/27 Active Tablets 600mg 2 po qd Sarah Cancino Proair HFA 05/23 Active Aerosol 108(90Bas 8.500 2 puffs 4 J45.909 e) gm times daily Cotton mcg/Act as needed M.DJuice Advair Diskus 11/21 Active Aerosol 100-50mcg 180un use 1 J45.909 /Dose its inhalation Cotton, twice daily M.DJuice Aspirin Active Tablets DR 325mg 1 po qd Unknown Metronidazole Active Cream 0.75% Apply To Yentzer, Affected MD Mario Area Every Night Tr[place] Active Gel 0.025% Unknown L-Carnitine Active Capsules 500mg Latov, MD Ilir Methotrexate Active Tablets 2.5mg 3 tabs once [facility] /0000 weekly , MD Gela Xylal Active prn for Unknown / angioedema Vitamin B 12 Active 1 by mouth Unknown every day Folic Acid Active Tablets 1mg 1 by mouth Unknown every day Valacyclovir 03/28 Hx Tablets 1gm 20tab take 2 by B00.2 Vonda HCL s mouth every Varn, N.P. - 12 hours as 10/04 Nasonex 10/20 Hx Suspension 50mcg/Act 17gm 2 sprays to each JO Schaeffer - nostril 11/24 once daily as needed Mupirocin 10/20 Hx Ointment 2% 22uni apply thin ts film of JO Schaeffer - ointment to 11/24 affected area(s) three times daily for 10-14 days Doxycycline 01/09 Hx Capsules 100mg 14cap 1 tab by 911.4 Jenaro Hyclate s mouth twice JO Benoit - a day x 7 Vitamin E 11/24 Hx Capsules 400Unit 2 by mouth every day Quita Cancino M.D. 05/26 Multivitamin/Ca 05/23 Hx Tabs 1 po qd Sparkle lcium /Vitamin Sarath Cancino M.D. 01/13 Desloratadine 11/20 Hx Tablets 5mg 90tab 1 by mouth 477.9 s every day Quita Cancino M.DJuice 07/31 Proair HFA 05/22 Hx Aerosol 108(90Bas 8.500 2 puffs 4 493.90 e) mcg/ac gm times daily Barak - as needed M.DJuice 05/23 Alendronate 11/21 Hx Tablets 70mg 12tab one tablet 733.00 Sparkle /2012 s weekly Quita Cancino M.DJuice 02/20 Alendronate 07/19 Hx Tablets 70mg 12tab 1 tablet Sparkle Sodium /2009 s once Quita Cancino weekly. M.DJuice 05/16 Take empty stomach, do not eat or lie down for 30 min after taking Alendronate 07/19 Hx Tablets 70mg 4tabs Take 1 Sparkle Sodium /2009 Tablet Once Cotton, - Weekly On M.D. 11/21 An Empty Stomach, DO Not Eat Or Lie Down For 30 Minutes After Taking. Nexium 12/[address] 40mg 30cap 1 tablet Sparkle s once daily Cotton, - M.D. 03/12 Nexium 11/[address] 40mg 30cap 1 po qd 787.02 Sparkle s Capulin, - M.D. 12/14 Nexium 09/[address] 20mg 30cap 1 tab po qd 787.02 Sparkle s Cotton, - M.D. 11/04 Alendronate Hx Tablets 70mg 12tab one tablet Sparkle s weekly Capulin, - M.D. 03/12 Advair Diskus Hx Aerosol 250-50mcg 2unit 1 Sparkle / /Dose s inhalation Capulin, - once daily M.D. 11/21 Nasonex Hx Suspension 50mcg/Act 1unit 2 sprays to Unknown /0000 s each - nostril 05/22 twice daily /2011 as needed Locoid Lipo Hx as Needed Unknown Cream /0000 - 11/24 Tamoxifen Hx 1 po qd Unknown Citrate /0000 - 05/26 Tamoxifen Hx Tablets 20mg 1 by mouth Unknown Citrate /0000 once daily - 03/28 Jublia Hx Solution 10% apply Unknown /0000 topically - nail once 11/24 /2016 Erythromycin Hx Ointment 5mg/GM Apply A Unknown / Thin Strip - To ALL 4 05/26 Eyelid /2016 Margins Every Night AT Bedtime For Carnitine Hx Capsules 250mg 4 caps per Latov, / day MD Ilir - 01/13 Doxycycline Hx Capsules 50mg Take 1 Yentzer, Hyclate / Capsule By MD Mario - Mouth Twice 01/13 A Day A Large Glass Of Water And Fo Mupirocin Hx Ointment 2% apply to Unknown /0000 both - nostrils 03/28 twice a day /2017 for 5 days Benzoyl Hx Liquid 5% apply to Unknown Peroxide Wash /0000 affected - area 10/04 nightly Nitrofurantoin 00/00 Hx Capsules 100mg 1 by mouth Unknown Monohyd Macro /0000 twice a day - for 5 days 10/10 Immunizations CPT Code Status Date Vaccine Reaction Lot # [id number] Given 05/03/2017 Influenza Virus Vaccine, No immediate [id number] Quadrivalent, Split, reaction...jh Preservative Free 90622 Given 05/13/2016 Influ Virus Vaccine, [id number] Quadrivalent, Split [place], [place] [address] Given 05/26/2015 Influenza Virus Vaccine, [id number] Quadrivalent, Split, Preservative Free 46258 Given 11/24/2014 Pneumococcal Conjugate [id number] Vaccine 13 Valent For Intramuscular Use 50251 Given 05/26/2014 Flu Vaccine Split Virus [id number] Preservative Free For Indiv 3Yr Older 40462 Given 08/27/2013 Tdap - [id number] Tetanus/Diptheria/Acellula r Pertussis 95929 Given 05/17/2013 Flu Vaccine Split Virus [id number] Preservative Free For Indiv 3Yr Older Q2038 Given 04/25/2012 Fluzone Vaccine [id number] 82486 Given 02/21/2012 Zoster (Zostavax) [id number] 53761 Given 07/21/2009 Influenza Virus Vaccine, [id number] 5P Pandemic Formulation 12194 Given 07/16/2009 Pneumonia Vaccine 56307 Given 07/16/2009 Influenza Virus [id number] & [id number] Over Vital Signs Date Vital Result Comment 10/11/2018 2:45pm Height 68 inches 5'8" Weight 142.00 lb Heart Rate 65 /min BP Systolic 123 mmHg BP Diastolic 66 mmHg Respiratory Rate 18 /min Body Temperature 97.5 F O2 % BldC Oximetry 99 % BMI (Body Mass Index) 21.6 kg/m2 10/04/2018 2:44pm Height 68 inches 5'8" Weight 143.00 lb Heart Rate 62 /min BP Systolic Sitting 129 mmHg BP Diastolic Sitting 66 mmHg Body Temperature 98.0 F O2 % BldC Oximetry 100 % BMI (Body Mass Index) 21.7 kg/m2 03/28/2018 1:56pm Height 68 inches 5'8" Weight 144.00 lb Heart Rate 74 /min BP Systolic 108 mmHg BP Diastolic 56 mmHg Body Temperature 97.5 F O2 % BldC Oximetry 96 % BMI (Body Mass Index) 21.9 kg/m2 05/11/2017 11:00am Height 68 inches 5'8" Weight 137.25 lb Heart Rate 59 /min BP Systolic 122 mmHg BP Diastolic 66 mmHg Body Temperature 98.8 F O2 % BldC Oximetry 99 % BMI (Body Mass Index) 20.9 kg/m2 01/13/2017 9:58am Weight 135.25 lb Heart Rate 68 /min BP Systolic 126 mmHg BP Diastolic 62 mmHg Body Temperature 98.2 F O2 % BldC Oximetry 98 % 11/24/2016 8:44am Weight 133.00 lb Heart Rate 66 /min BP Systolic Sitting 118 mmHg BP Diastolic Sitting 62 mmHg O2 % BldC Oximetry 99 % 05/26/2016 2:35pm Weight 137.00 lb with shoes Heart Rate 63 /min BP Systolic Sitting 106 mmHg BP Diastolic Sitting 42 mmHg O2 % BldC Oximetry 98 % 04/11/2016 1:36pm Height 68 inches 5'8" Weight 135.00 lb Heart Rate 63 /min BP Systolic 116 mmHg BP Diastolic 60 mmHg BMI (Body Mass Index) 20.5 kg/m2 10/21/2015 11:33am Height 68 inches 5'8" Weight 141.00 lb Heart Rate 64 /min BP Systolic Sitting 118 mmHg BP Diastolic Sitting 72 mmHg Respiratory Rate 14 /min Body Temperature 98.4 F O2 % BldC Oximetry 98 % BMI (Body Mass Index) 21.4 kg/m2 05/26/2015 3:06pm Height 68 inches 5'8" Weight 139.00 lb Heart Rate 74 /min BP Systolic Sitting 108 mmHg BP Diastolic Sitting 56 mmHg Body Temperature 98.8 F O2 % BldC Oximetry 98 % BMI (Body Mass Index) 21.1 kg/m2 01/09/2015 3:56pm Weight 135.75 lb Heart Rate 71 /min BP Systolic Sitting 126 mmHg BP Diastolic Sitting 70 mmHg Body Temperature 99.0 F O2 % BldC Oximetry 97 % 12/16/2014 11:28am Weight 135.00 lb Heart Rate 66 /min BP Systolic Sitting 122 mmHg BP Diastolic Sitting 80 mmHg Body Temperature 98.8 F O2 % BldC Oximetry 98 % 11/24/2014 3:19pm Weight 137.00 lb Heart Rate 65 /min BP Systolic Sitting 100 mmHg BP Diastolic Sitting 48 mmHg Body Temperature 98.4 F 05/26/2014 2:37pm Height 68 inches 5'8" Weight 140.00 lb Heart Rate 60 /min BP Systolic Sitting 112 mmHg BP Diastolic Sitting 62 mmHg Body Temperature 98.1 F BMI (Body Mass Index) 21.3 kg/m2 08/27/2013 9:33am Weight 138.00 lb Heart Rate 68 /min BP Systolic 122 mmHg BP Diastolic 62 mmHg 05/23/2013 3:06pm Weight 138.00 lb Heart Rate 66 /min BP Systolic Sitting 110 mmHg BP Diastolic Sitting 60 mmHg 12/12/2012 10:55am Weight 136.00 lb Heart Rate 66 /min BP Systolic Sitting 120 mmHg BP Diastolic Sitting 76 mmHg 11/20/2012 1:10pm Weight 137.00 lb Heart Rate 68 /min BP Systolic Sitting 104 mmHg BP Diastolic Sitting 60 mmHg Peak Flow Meter 370 360; 370; 370 05/22/2012 3:00pm Height 68 inches 5'8" Weight 141.00 lb Heart Rate 60 /min BP Systolic Sitting 110 mmHg BP Diastolic Sitting 60 mmHg BMI (Body Mass Index) 21.4 kg/m2 02/21/2012 10:57am Height 68 inches 5'8" Weight 137.00 lb Heart Rate 68 /min BP Systolic Sitting 122 mmHg BP Diastolic Sitting 70 mmHg BMI (Body Mass Index) 20.8 kg/m2 11/22/2011 2:58pm Height 68 inches 5'8" Weight 144.00 lb Heart Rate 60 /min BP Systolic Sitting 136 mmHg BP Diastolic Sitting 70 mmHg BMI (Body Mass Index) 21.9 kg/m2 05/16/2011 3:17pm Height 68 inches 5'8" Weight 140.00 lb Heart Rate 76 /min BP Systolic Sitting 110 mmHg BP Diastolic Sitting 58 mmHg BMI (Body Mass Index) 21.3 kg/m2 11/04/2009 1:04pm Height 68 inches 5'8" Weight 143.00 lb Heart Rate 68 /min BP Systolic 100 mmHg BP Diastolic 70 mmHg Respiratory Rate 16 /min Body Temperature 97.5 F BMI (Body Mass Index) 21.7 kg/m2 09/30/2009 9:36am Weight 145.00 lb Heart Rate 76 /min BP Systolic Sitting 118 mmHg BP Diastolic Sitting 70 mmHg 08/18/2009 8:43am Height 67.5 inches 5'7.50" Weight 149.00 lb Heart Rate 70 /min BP Systolic Sitting 102 mmHg BP Diastolic Sitting 66 mmHg BMI (Body Mass Index) 23.0 kg/m2 07/16/2009 8:55am Height 67.5 inches 5'7.50" Weight 149.75 lb Heart Rate 68 /min BP Systolic Sitting 119 mmHg BP Diastolic Sitting 77 mmHg Body Temperature 97.0 F BMI (Body Mass Index) 23.1 kg/m2 Results Test Date Facility Test Result H/L Range Note Liver Function 06/06/2018 [facility] Total Protein 6.5 g/dL N 6.4-8.[address] [place] [address] [phone] Albumin 3.9 g/dL N 3.2-5.2 Globulin 2.6 g/dL N 2-4 Albumin/Globulin Ratio 1.5 N 1-3 Total Bilirubin 0.40 mg/dL N 0.2-1.0 Direct Bilirubin 0.10 mg/dL N 0.03-0.18 Indirect Bilirubin 0.3 mg/dL N 0.3-1.0 Alkaline Phosphatase 92 U/L N 34-104 Alt 16 U/L N 7-52 Ast 21 U/L N 13-39 Iron & Iron Binding 03/15/2017 [facility] Iron 122 g/dL N 50 -[address] [place] [address] [phone] Unsaturated Iron Binding 207 g/dL N Total Iron Binding Capacity 329 g/dL N 250-450 % Iron Saturation 37 % N 15-55 Laboratory test 03/15/2017 [facility] TSH (Thyroid 5.10 mcIU/mL N 0.34-5.[address] Stim Horm) [place] [address] [phone] Free T4 (Free Thyroxine) 0.72 ng/dL N 0.61-1.12 Ferritin 61.0 ng/mL N 11-307 Vitamin D Total 25(Oh) 44.2 ng/mL N 30-50 Tryptase 2.6 ng/mL N <11.5 1 Complement C3 101 mg/dL N 75 - 175 2 Complement C4 23 mg/dL N 14 - 40 3 Aspergillus Fumigatus IgE <0.35 kU/L N 4 Silver Birch IgE 1.84 kU/L N 5 [place] Maple IgE <0.35 kU/L N 6 [place] Allergen IgE <0.35 kU/L N 7 Cat Epithelium Allergen IgE <0.35 kU/L N 8 Cladosporium herbarum IgE <0.35 kU/L N 9 TSH Receptor Assay <1.00 IU/L N 10 Alternaria tenuis IgE Allergen <0.35 kU/L N 11 Egg White Allergen IgE 0.38 kU/L N 12 [place] Allergen IgE <0.35 kU/L N 13 Codfish Allergen IgE <0.35 kU/L N 14 Dermatophagoides farinae IgE 34.5 kU/L N 15 Dermatophagoides pteronyssinus 42.5 kU/L N 16 Dog Dander Allergen IgE 0.39 kU/L N 17 Egg Yolk Allergen IgE <0.35 kU/L N 18 Elm Tree Allergen IgE <0.35 kU/L N 19 Uzbek Plantain Allergen IgE <0.35 kU/L N 20 Hazelnut Allergen IgE 1.26 kU/L N 21 Melgoza's Quarter Allergen IgE <0.35 kU/L N 22 Rast Cow's Milk <0.35 kU/L N 23 [place] Allergen IgE 0.57 kU/L N 24 Pecan Allergen IgE <0.35 kU/L N 25 Penicillium notatum Allerg IgE <0.35 kU/L N 26 Rough Pigweed Allergen IgE <0.35 kU/L N 27 Common Ragweed (Short) Allerge <0.35 kU/L N 28 Shrimp Allergen IgE <0.35 kU/L N 29 Soybean Allergen IgE <0.35 kU/L N 30 Dominic Grass Allergen IgE <0.35 kU/L N 31 [place] Allergen IgE <0.35 kU/L N 32 Rast Wheat <0.35 kU/L N 33 White Calixto Allergen IgE <0.35 kU/L N 34 Goose Feathers Allergen IgE Ab <0.35 kU/L N 35 Immunoglobulin E (Ige) 219 kU/L Abnormal <=214 36 Peanut, IgE w/ Reflex 0.15 kU/L N 37 C1 Esterase Inhibitor Function 88 %ofnorm N 38 Peanut Component 03/15/2017 [facility] Peanut Component <0.10 kU /L N [address]ra [address] [place] [address] [phone] Peanut Component Mayra h 2 <0.10 kU/L N 40 Peanut Component Mayra h 3 <0.10 kU/L N 41 Peanut Component Mayra h 8 0.54 kU/L N 42 Peanut Component Mayra h 9 <0.10 kU/L N 43 Peanut Component Interp See Comment N 44 Rast [place] Ige 03/15/2017 [facility] [place] Tree <0.35 kU/L N <0.[address] [place] [address] [phone] [place] Conventional Class 0 N 45 CBC Auto Diff 02/04/2017 [facility] White Blood 5.6 10^3/uL N 3.5-10.[address] [place] [address] [phone] Red Blood Count 3.64 10^6/uL Low 4.0-5.4 Hemoglobin 11.7 g/dL Low 12.0-16.0 Hematocrit 35 % N 35-47 Mean Corpuscular Volume 96 fL N 80-97 Mean Corpuscular Hemoglobin 32 pg High 27-31 Mean Corpuscular HGB Conc 34 g/dL N 31-36 Red Cell Distribution Width 14 % N 10.5-15 Platelet Count 197 10^3/uL N 150-450 Mean Platelet Volume 10 um3 N 7.4-10.4 Abs Neutrophils 3.1 10^3/uL N 1.5-7.7 Abs Lymphocytes 1.8 10^3/uL N 1.0-4.8 Abs Monocytes 0.4 10^3/uL N 0-0.8 Abs Eosinophils 0.3 10^3/uL N 0-0.6 Abs Basophils 0.1 10^3/uL N 0-0.2 Abs Nucleated RBC 0 10^3/uL N Granulocyte % 54.5 % N 38-83 Lymphocyte % 32.2 % N 25-47 Monocyte % 6.7 % N 1-9 Eosinophil % 5.6 % N 0-6 Basophil % 1.0 % N 0-2 Nucleated Red Blood Cells % 0.1 N Comp Metabolic Panel 02/04/2017 [facility] Sodium 139 mmol/L N 133-[address] [place] [address] [phone] Potassium 4.2 mmol/L N 3.5-5.0 Chloride 108 mmol/L N 101-111 Co2 Carbon Dioxide 22 mmol/L N 22-32 Anion Gap 9 mmol/L N 2-11 Glucose 113 mg/dL High 70-100 Blood Urea Nitrogen 14 mg/dL N 6-24 Creatinine 0.90 mg/dL N 0.51-0.95 BUN/Creatinine Ratio 15.6 N 8-20 Calcium 9.0 mg/dL N 8.6-10.3 Total Protein 6.3 g/dL Low 6.4-8.9 Albumin 3.8 g/dL N 3.2-5.2 Globulin 2.5 g/dL N 2-4 Albumin/Globulin Ratio 1.5 N 1-3 Total Bilirubin 0.40 mg/dL N 0.2-1.0 Alkaline Phosphatase 53 U/L N 34-104 Alt 10 U/L N 7-52 Ast 20 U/L N 13-39 Egfr Non- 60.6 N >60 Egfr 77.9 N >60 46 Laboratory test 10/24/2016 [facility] MRSA Screen SEE RESULT 47, [address] [place] [address] [phone] Wound 10/24/2016 [facility] Wound/Misc SEE RESULT 49 Culture/Sensi [address] [place] [address] Stain [phone] Carnitine Free & 08/01/2016 [facility] Total 46 nmol/mL N 34- [address] [place] [address] [phone] Free Carnitine 42 nmol/mL N 25-54 Acylcarnitine 4 nmol/mL Abnormal 5-30 Acylcarn/Free Carnitine Ratio 0.1 N 0.1-0.8 Carnitine Interpretation See Comment N 50 Laboratory test 04/12/2016 [facility] Erythrocyte Sed 22 mm/Hr N 0-[address] [place] [address] [phone] CBC Auto Diff 04/12/2016 [facility] White Blood 5.9 N 3.5- 10.[address] Count 10^3/[place] [address] [phone] Red Blood Count 3.94 10^6/uL Low 4.0-5.4 Hemoglobin 12.1 g/dL N 12.0-16.0 Hematocrit 37 % N 35-47 Mean Corpuscular Volume 94 fL N 80-97 Mean Corpuscular Hemoglobin 31 pg N 27-31 Mean Corpuscular HGB Conc 33 g/dL N 31-36 Red Cell Distribution Width 14 % N 10.5-15 Platelet Count 199 10^3/uL N 150-450 Mean Platelet Volume 10 um3 N 7.4-10.4 Abs Neutrophils 3.2 10^3/uL N 1.5-7.7 Abs Lymphocytes 1.9 10^3/uL N 1.0-4.8 Abs Monocytes 0.4 10^3/uL N 0-0.8 Abs Eosinophils 0.4 10^3/uL N 0-0.6 Abs Basophils 0.1 10^3/uL N 0-0.2 Abs Nucleated RBC 0 10^3/uL N Granulocyte % 54.5 % N 38-83 Lymphocyte % 31.5 % N 25-47 Monocyte % 6.7 % N 1-9 Eosinophil % 6.2 % High 0-6 Basophil % 1.1 % N 0-2 Nucleated Red Blood Cells % 0 N Protein 04/12/2016 [facility] Total 6.9 g/dL N 6.3 - Electrophoresis [address] [facility] Protein(Pep) 7.9 [place] [address] [phone] Albumin 3.4 g/dL N 3.4-4.7 Alpha-1 Globulin 0.3 g/dL N 0.1-0.3 Alpha-2 Globulin 1.1 g/dL Abnormal 0.6-1.0 Beta Globulin 0.8 g/dL N 0.7-1.2 Gamma Globulin 1.3 g/dL N 0.6-1.6 Albumin/Globulin Ratio 0.97 N Impression See Comment N 51 Laboratory test 04/12/2016 [facility] Vitamin B12 347 pg/mL N 180-914 52 finding [address] [place] [address] [phone] TSH (Thyroid Stim Horm) 5.98 mcIU/mL High 0.34-5.60 Comp Metabolic Panel 04/12/2016 [facility] Sodium 138 mmol/L N 133-145 [address] [place] [address] [phone] Potassium 4.6 mmol/L N 3.5-5.0 Chloride 105 mmol/L N 101-111 Co2 Carbon Dioxide 24 mmol/L N 22-32 Anion Gap 9 mmol/L N 2-11 Glucose 94 mg/dL N 70-100 Blood Urea Nitrogen 14 mg/dL N 6-24 Creatinine 0.95 mg/dL N 0.51-0.95 BUN/Creatinine Ratio 14.7 N 8-20 Calcium 9.2 mg/dL N 8.6-10.3 Total Protein 6.5 g/dL N 6.4-8.9 Albumin 3.9 g/dL N 3.2-5.2 Globulin 2.6 g/dL N 2-4 Albumin/Globulin Ratio 1.5 N 1-3 Total Bilirubin 0.50 mg/dL N 0.2-1.0 Alkaline Phosphatase 53 U/L N 34-104 Alt 12 U/L N 7-52 Ast 18 U/L N 13-39 Egfr Non- 57.0 N >60 Egfr 73.4 N >60 53 Laboratory test 04/29/2015 [facility] Vitamin B12 423 pg/mL N 180-914 [address] [place] [address] [phone] TSH (Thyroid Stim Horm) 5.20 ?IU/mL N 0.34-5.60 CBC Auto Diff 04/29/2015 [facility] White Blood 5.3 10^3/uL N 4.8-10.[address] [place] [address] [phone] Red Blood Count 3.99 10^6/uL Low 4.0-5.4 Hemoglobin 12.6 g/dL N 12.0-16.0 Hematocrit 39 % N 35-47 Mean Corpuscular Volume 97 fL N 80-97 Mean Corpuscular Hemoglobin 32 pg High 27-31 Mean Corpuscular HGB Conc 33 g/dL N 31-36 Red Cell Distribution Width 14 % N 10.5-15 Platelet Count 207 10^3/uL N 150-450 Mean Platelet Volume 9 um3 N 7.4-10.4 Abs Neutrophils 2.7 10^3/uL N 1.5-7.7 Abs Lymphocytes 1.8 10^3/uL N 1.0-4.8 Abs Monocytes 0.4 10^3/uL N 0-0.8 Abs Eosinophils 0.4 10^3/uL N 0-0.6 Abs Basophils 0 10^3/uL N 0-0.2 Abs Nucleated RBC 0 10^3/uL N Granulocyte % 49.8 % N 38-83 Lymphocyte % 34.7 % N 25-47 Monocyte % 8.0 % N 1-9 Eosinophil % 6.9 % High 0-6 Basophil % 0.6 % N 0-2 Nucleated Red Blood Cells % 0 N Comp Metabolic Panel 04/29/2015 [facility] Sodium 140 mmol/L N 133-145 [address] [place] [address] [phone] Potassium 4.1 mmol/L N 3.5-5.0 Chloride 106 mmol/L N 101-111 Co2 Carbon Dioxide 23 mmol/L N 22-32 Anion Gap 11 mmol/L N 2-11 Glucose 80 mg/dL N 70-100 Blood Urea Nitrogen 13 mg/dL N 6-24 Creatinine 0.92 mg/dL N 0.51-0.95 BUN/Creatinine Ratio 14.1 N 8-20 Calcium 9.2 mg/dL N 8.6-10.3 Total Protein 6.9 g/dL N 6.4-8.9 Albumin 4.1 g/dL N 3.2-5.2 Globulin 2.8 g/dL N 2-4 Albumin/Globulin Ratio 1.5 N 1-3 Total Bilirubin 0.50 mg/dL N 0.2-1.0 Alkaline Phosphatase 56 U/L N 34-104 Alt 12 U/L N 7-52 Ast 20 U/L N 13-39 Egfr Non- 59.4 N >60 Egfr 76.3 N >60 55 Vitamin D Total 25(Oh) 11/18/2014 Vitamin D Total 25(Oh) 42.1 ng/mL N 30 -50 Lipid Profile 11/18/2014 Triglycerides 179 mg/dL N 56 (Trig/Chol/HDL) Cholesterol 160 mg/dL N 57 HDL Cholesterol 54.6 mg/dL N 58 LDL Cholesterol 70 mg/dL N 59 Pthi 09/03/2013 [facility] PTH Intact 2.7 pmol/L 1.3-9.0 [address] [place] [address] [phone] Calcium (PTH Intact) 9.3 mg/dL 8.1-9.9 Comp Metabolic Panel 09/03/2013 [facility] Sodium 141 mmol/L 133-145 [address] [place] [address] [phone] Potassium 4.1 mmol/L 3.5-5.0 Chloride 108 mmol/L 101-111 Co2 Carbon Dioxide 24.0 mmol/L 22-32 Anion Gap 9.0 mmol/L 2-11 Glucose 79 mg/dL 70-100 Blood Urea Nitrogen 17 mg/dL 6-24 Creatinine 0.90 mg/dL 0.50-1.40 BUN/Creatinine Ratio 18.9 8-20 Calcium 9.4 mg/dL 8.1-9.9 Total Protein 7.0 g/dL 6.2-8.1 Albumin 3.9 g/dL 3.2-5.2 Globulin 3.1 g/dL 2-4 Albumin/Globulin Ratio 1.3 1-3 Total Bilirubin 0.7 mg/dL 0.4-1.5 Alkaline Phosphatase 61 U/L 30-110 Alt 20 U/L 14-54 Ast 24 U/L 12-42 Egfr Non- 61.0 >60 Egfr 78.5 >60 60 Vitamin D, 25 09/03/2013 [facility] 25-Hydroxy Vitamin <4.0 ng/ mL Hydroxy [address] [place] [address] [phone] 25-Hydroxy Vitamin D3 48 ng/mL 25-Hydroxy Vitamin D Total 48 ng/mL 61 Surgical 03/12/2013 [facility] S RUN DATE: [address] 03/14/ <[place] [address] NOTE> [phone] Laboratory test 10/26/2012 [facility] Lipase 36 U/L 22-[address] [place] [address] [phone] Lipid Profile 10/26/2012 [facility] Triglycerides 159 mg/dL 40-200 (Trig/Chol/HDL) [address] [place] [address] [phone] Cholesterol 177 mg/dL Less than 200 HDL Cholesterol 60 mg/dL 40-60 63 Cholesterol/HDL Ratio 3.0 Average 1-4.44 LDL Cholesterol 85.2 mg/dL Less Than 100 64 Surgical 06/01/2012 [facility] S RUN DATE: [address] 06/04/ <[place] [address] NOTE> [phone] Lipid Profile 06/16/2011 [facility] Triglyceride 123 mg/dL 40 -200 (Trig/Chol/HDL) [address] [place] [address] [phone] Cholesterol 199 mg/dL Less Than 200 66 High Density Lipoprotein 59 mg/dL 40-60 67 Cholesterol/HDL Ratio 3.37 AVERAGE 1-4.44 Low Density Lipoprotein 115 mg/dL High Less Than 100 68 Comp Metabolic Panel 06/16/2011 [facility] Sodium 139 mmol/L 135-[address] [place] [address] [phone] Potassium 3.5 mmol/L 3.5-5.0 Chloride 105 mmol/L 101-111 Co2 (Carbon Dioxide) 25.0 mmol/L 22-32 Anion Gap 9.0 mmol/L 2-11 69 Glucose 88 mg/dL 70-100 BUN 14 mg/dL 6-24 Creatinine 0.9 mg/dL 0.50-1.40 One Over Creatinine 1.11 BUN/Creatinine Ratio 15.6 8-20 Calcium 9.2 mg/dL 8.1-9.9 Total Protein 7.5 GM/DL 6.2-8.1 Albumin 4.1 GM/DL 3.2-5.2 Globulin 3.4 GM/DL 2-4 Albumin/Globulin Ratio 1.2 1-3 Bilirubin Total 0.8 mg/dL 0.4-1.5 70 Alkaline Phosphatase 85 U/L 30-110 Alt (SGPT) 14 U/L 14-54 Ast (Sgot) 22 U/L 12-42 eGFR Non- 61.4 > 60 eGFR 78.9 > 60 71 Vitamin D, 25 06/16/2011 [facility] 25-Hydroxy Vitamin <4.0 ng/ mL () [address] [place] [address] [phone] 25-Hydroxy Vitamin D3 36 ng/mL () 25-Hydroxy Vitamin D Total 36 ng/mL () 72 Surgical 02/03/2010 [facility] Surgical [address] <SEE NOTE> [place] [address] [phone] Lipid Profile 08/18/2009 [facility] Triglyceride 95 mg/dL 40 - (Trig/Chol/HD [address]) [place] [address] [phone] Cholesterol 185 mg/dL Less Than 200 74 High Density Lipoprotein 53 mg/dL 40-60 75 Cholesterol/HDL Ratio 3.49 AVERAGE 1-4.44 Low Density Lipoprotein 113 mg/dL High Less Than 100 76 Vitamin D, 25 08/18/2009 [facility] 25-Hydroxy Vitamin <4.0 ng/ mL () Hydroxy [address] [place] [address] [phone] 25-Hydroxy Vitamin D3 37 ng/mL () 25-Hydroxy Vitamin D Total 37 ng/mL () 77 1 Test Performed by: [place] [address] 2 Test Performed by: [place] [address] 3 Test Performed by: [place] [address] 4 Class 0 (Negative <0.35) Test Performed by: [place] [address] 5 Class 2 (Positive 0.70-3.49) Test Performed by: [place] [address] 6 Class 0 (Negative <0.35) Test Performed by: [place] [address] 7 Class 0 (Negative <0.35) Test Performed by: [place] [address] 8 Class 0 (Negative <0.35) Test Performed by: [place] [address] 9 Class 0 (Negative <0.35) Test Performed by: [place] [address] 10 REFERENCE VALUE 0.00 - 1.75 ADDITIONAL INFORMATION At a decision limit of 1.75 IU/L, this assay has 97% sensitivity and 99% specificity for detection of Graves' disease. In healthy individuals and in patients with thyroid disease without diagnosis of Graves' disease, the upper limit of anti-TSHR values are 1.22 IU/L and 1.58 IU/L, respectively (97.5th percentiles). Test Performed by: [place] [address] 11 Class 0 (Negative <0.35) Test Performed by: [place] [address] 12 Class 1 (Equivocal 0.35-0.69) Test Performed by: [place] [address] 13 Class 0 (Negative <0.35) Test Performed by: [place] [address] 14 Class 0 (Negative <0.35) Test Performed by: [place] [address] 15 Class 4 (Strongly Positive 17.5-49.9) Test Performed by: [place] [address] 16 Class 4 (Strongly Positive 17.5-49.9) Test Performed by: [place] [address] 17 Class 1 (Equivocal 0.35-0.69) Test Performed by: [place] [address] 18 Class 0 (Negative <0.35) Test Performed by: [place] [address] 19 Class 0 (Negative <0.35) Test Performed by: [place] [address] 20 Class 0 (Negative <0.35) Test Performed by: [place] [address] 21 Class 2 (Positive 0.70-3.49) Test Performed by: [place] [address] 22 Class 0 (Negative <0.35) Test Performed by: [place] [address] 23 Class 0 (Negative <0.35) Test Performed by: [place] [address] 24 Class 1 (Equivocal 0.35-0.69) Test Performed by: [address] [address] 25 Class 0 (Negative <0.35) Test Performed by: [place] [address] 26 Class 0 (Negative <0.35) Test Performed by: [place] [address] 27 Class 0 (Negative <0.35) Test Performed by: [place] [address] 28 Class 0 (Negative <0.35) Test Performed by: [place] [address] 29 Class 0 (Negative <0.35) Test Performed by: [place] [address] 30 Class 0 (Negative <0.35) Test Performed by: [place] [address] 31 Class 0 (Negative <0.35) Test Performed by: [place] [address] 32 Class 0 (Negative <0.35) Test Performed by: [address] [address] 33 Class 0 (Negative <0.35) Test Performed by: [place] [address] 34 Class 0 (Negative <0.35) Test Performed by: [place] [address] 35 Class 0 (Negative <0.35) Test Performed by: [place] [address] 36 Test Performed by: [address] [address] 37 Class 0/1 (Borderline/Equivocal 0.10-0.34) Test Performed by: [place] [address] 38 REFERENCE VALUE >67 (Normal) 41-67 (Equivocal) <41 (Abnormal) Test Performed by: [facility] [address] [place] [address] 39 Class 0 (Negative <0.10) 40 Class 0 (Negative <0.10) 41 Class 0 (Negative <0.10) 42 Class 1 (Equivocal 0.35-0.69) 43 Class 0 (Negative <0.10) 44 Equivocal result for Mayra h8 IgE antibodies in context of borderline/equivocal total peanut IgE. The clinical significance of these equivocal results are not clear. Results from peanut-specific IgE testing must be interpreted in the context of patient's clinical evaluation and history of allergen exposures. Test Performed by: [facility] [address] [place] [address] 45 This conventional EIA uses allergen-coated discs from several suppliers and an enzyme-labeled anti-IgE. CLASS INTERPRETATION: <0.35 kU/L=0, Below Detection; 0.35-0.69 kU/L=1, Low Positive; 0.70-3.49 kU/L=2, Moderate Positive; 3.50-17.49 kU/L=3, Positive; 17.50-49.99 kU/L= 4, Strong Positive; 50.00-99.99 kU/L=5, Very Strong Positive; >99.99 kU/L=6, Very Strong Positive *This test was developed and its performance characteristics determined by [facility]. It has not been cleared or approved by the U.S. Food and Drug Administration. Test Performed by: [facility], Interface [address] [place] [address] 46 Because ethnic data is not always readily available, this report includes an eGFR for both -Americans and non- Americans. The National Kidney Disease Education Program (NKDEP) does not endorse the use of the MDRD equation for patients that are not between the ages of 18 and 70, are , have extremes of body size, muscle mass, or nutritional status, or are non- or non-. According to the National Kidney Foundation, irrespective of diagnosis, the stage of the disease is based on the level of kidney function: Stage Description GFR(mL/min/1.73 m(2)) 1 Kidney damage with normal or decreased GFR 90 2 Kidney damage with mild decrease in GFR 60-89 3 Moderate decrease in GFR 30-59 4 Severe decrease in GFR 15-29 5 Kidney failure <15 (or dialysis) 47 [id number] 48 SEE RESULT BELOW Name: RODVERENA : [address]: Dolly DEUTSCH Acct: [id number] Unit: [id number] AGE: 76 Location: [facility] Re10/24/16 SEX: F Status: REG REF SPEC: [id number] ANKITA: 10/24/16-[address] [facility] [address]: Dolly DEUTSCH REQ: [id number] RECD: 10/24/16-1301 STATUS: COMP _ SOURCE: NASAL SPDESC: ORDERED: MRSA PCR-Nasal COMMENTS: [id number] Procedure Result Reported Site MRSA PCR (Nasal) Final 10/24/16- 2028 ML Organism 1 MRSA NEGATIVE * ML - [facility] ([facility]) . END OF REPORT * ML=Testing performed at Main Lab DEPARTMENT OF PATHOLOGY, [address] [place] [address] Shmuel Velazquez M.D. Director [facility] # [id number] 49 SEE RESULT BELOW Name: VERENA VELASCO : [address]: Dolly DEUTSCH Acct: [id number] Unit: [id number] AGE: 76 Location: [facility] Re10/24/16 SEX: F Status: REG REF SPEC: [id number] ANKITA: 10/24/[address] [facility] [address]: Dolly DEUTSCH REQ: [id number] RECD: 10/24/16 STATUS: DELVIN GABRIEL DR: Sparkle Cancino MD _ SOURCE: MIS SOUR SPDESC: ORDERED: Culture Stain COMMENTS: [id number] QUERIES: Specimen Description LEFT FOREHEAD Procedure Result Reported Site Wound/Misc Gram Stain Final 10/25/16- 0804 ML 2+ Epithelial Cells No Organisms Seen Wound/Misc Culture Final 10/26/16- 1227 ML Organism 1 NORMAL CLEMENTE Quantity 1+ * ML - MAIN LAB ([facility]) . END OF REPORT * ML=Testing performed at Main Lab DEPARTMENT OF PATHOLOGY, [address] [place] [address] Shmuel Velazquez M.D. Director [facility] # [id number] 50 In this sample, the carnitine profile was essentially normal. ADDITIONAL INFORMATION This test was developed and its performance characteristics determined by [facility] in a manner consistent with CLIA requirements. This test has not been cleared or approved by the U.S. Food and Drug Administration. Test Performed by: [place] [address] Paste Up Artist Apprentice: Filiberto Garnica II, M.D., Ph.D. 51 RESULT: No apparent monoclonal protein on serum electrophoresis. Test Performed by: [place] [address] Paste Up Artist Apprentice: Filiberto Garnica II, M.D., Ph.D. 52 Normal Range 180 to 914 Indeterminate Range 145 to 180 Deficient Range <145 53 Because ethnic data is not always readily available, this report includes an eGFR for both -Americans and non- Americans. The National Kidney Disease Education Program (NKDEP) does not endorse the use of the MDRD equation for patients that are not between the ages of 18 and 70, are , have extremes of body size, muscle mass, or nutritional status, or are non- or non-. According to the National Kidney Foundation, irrespective of diagnosis, the stage of the disease is based on the level of kidney function: Stage Description GFR(mL/min/1.73 m(2)) 1 Kidney damage with normal or decreased GFR 90 2 Kidney damage with mild decrease in GFR 60-89 3 Moderate decrease in GFR 30-59 4 Severe decrease in GFR 15-29 5 Kidney failure <15 (or dialysis) 54 Normal Range 180 to 914 Indeterminate Range 145 to 180 Deficient Range <145 55 Because ethnic data is not always readily available, this report includes an eGFR for both -Americans and non- Americans. The National Kidney Disease Education Program (NKDEP) does not endorse the use of the MDRD equation for patients that are not between the ages of 18 and 70, are , have extremes of body size, muscle mass, or nutritional status, or are non- or non-. According to the National Kidney Foundation, irrespective of diagnosis, the stage of the disease is based on the level of kidney function: Stage Description GFR(mL/min/1.73 m(2)) 1 Kidney damage with normal or decreased GFR 90 2 Kidney damage with mild decrease in GFR 60-89 3 Moderate decrease in GFR 30-59 4 Severe decrease in GFR 15-29 5 Kidney failure <15 (or dialysis) 56 Desirable <150 Borderline high 150-199 High 200-499 Very High >500 57 Desirable <200 Borderline high 200-239 High >239 58 Low <40 Desirable: 40-60 High: >60 59 Desirable: <100 mg/dL Near Optimal: 100-129 mg/dL Borderline High: 130-159 mg/dL High: 160-189 mg/dL Very High: >189 mg/dL 60 Because ethnic data is not always readily available, this report includes an eGFR for both -Americans and non- Americans. The National Kidney Disease Education Program (NKDEP) does not endorse the use of the MDRD equation for patients that are not between the ages of 18 and 70, are , have extremes of body size, muscle mass, or nutritional status, or are non- or non-. According to the National Kidney Foundation, irrespective of diagnosis, the stage of the disease is based on the level of kidney function: Stage Description GFR(mL/min/1.73 m(2)) 1 Kidney damage with normal or decreased GFR 90 2 Kidney damage with mild decrease in GFR 60-89 3 Moderate decrease in GFR 30-59 4 Severe decrease in GFR 15-29 5 Kidney failure <15 (or dialysis) 61 -- REFERENCE VALUE -- 25-HYDROXY D TOTAL (D2+D3) Optimum levels in the healthy population are 20-50, patients with bone disease may benefit from higher levels within this range. Test Performed by: [facility] - [address] [address] Paste Up Artist Apprentice: Anish Rapp III, M.D. 62 RUN DATE: 03/14/13 [facility] LAB LIVE PAGE 1 RUN TIME: 5280 [address] [place], [place] [address] Specimen Inquiry Name: VERENA VELASCO : [address]: Lincoln Lombardo MD Acct: [id number] Unit: [id number] AGE: 72 Location: ENDO Re03/12/13 SEX: F Status: REG REF SPEC: [id number] ANKITA: 03/12/13- SUBM DR: Lincoln Lombardo MD REQ: [id number] RECD: 03/12/13 STATUS: ANITA GABRIEL DR: Sparkle Cancino MD _ ORDERED: LEVEL IV Deeper levels of sectioning show similar histologic features. The diagnosis remains unchanged. Addendum Signed (signature on file) Nila Norman MD 1403 FINAL DIAGNOSIS Esophagus at 39 cm., biopsy: A. Squamous and columnar mucosa with mild chronic inflammation. B. No evidence of intestinal metaplasia or dysplasia. COMMENT: Deeper levels of sectioning through the block are pending to be certain the findings are motor vehicle representative. The results will be reported in an addendum or this report will be revised if necessary. 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 Director [facility] Permit #[id number] RUN DATE: 03/14/13 [facility] LAB LIVE PAGE 2 RUN TIME: 1403 [facility] [employer] [place], [place] [address] Specimen Inquiry Patient: VERENA VELASCO [id number] (Continued) GROSS DESCRIPTION (Continued) GROSS DESCRIPTION The specimen is received in formalin labeled Verena Velasco, Esophagus at 39 cm. and consists of a 0.3 x 0.3 x 0.2 cm. yan-white portion of tissue. Submitted entirely, one cassette. Signed (signature on file) Nila Norman MD 1744 END OF REPORT * ML=Testing performed at Main Lab DEPARTMENT OF PATHOLOGY, [facility] [employer] [place] [address] Shmuel Velazquez M.D. Director [facility] Permit #[id number] HDL Interpretation: Undesirable: High Risk: Less than 40 MG/DL Desirable: Low Risk: Greater than 60 MG/DL 64 LDL Interpretation: Low Risk Optimal Level: LDL Less than 100 MG/DL Near or Above Optimal: LDL 100-129 MG/DL Borderline High Risk: LDL 130-159 MG/DL High Risk: LDL 160-189 MG/DL Very High Risk: LDL Greater than 189 MG/DL 65 RUN DATE: 06/04/12 [facility] LAB LIVE PAGE 1 RUN TIME: 1231 [address] [place], [place] [address] Specimen Inquiry Name: GARETTJOHNVERENA Covarrubias : [address]: Genoveva Hale MD Acct: [id number] Unit: [id number] AGE: 72 Location: [place] Re06/01/12 SEX: F Status: [facility] SPEC: [id number] ANKITA: 06/01/12- SUBM DR: Genoveva Hale MD REQ: [id number] RECD: 06/01/123468 STATUS: ANITA GABRIEL DR: Barak SINGH,Nila Tomas _ ORDERED: LEVEL V FINAL DIAGNOSIS Breast, left, needle localization excision: A. Ductal carcinoma in situ (DCIS): 1. Size: 2.0 mm. 2. Extent and Distribution: Single focus seen. 3. Architectural Pattern: Solid. 4. Nuclear Grade: 2. 5. Necrosis: Not seen. 6. Margins: DCIS transected along the mid inferior anterior margin of resection. 7. Microcalcifications: Present in association with DCIS as well as benign breast tissue. 8. Micro-invasion/Invasion: Not seen. 9. ER/W[place] by immunohistochemistry with appropriate controls: a. ER: Pending. b. [place]: Pending. B. Other Findings: Proliferative fibrocystic change. Extensive epithelial hyperplasia. C. TNM Histopathologic Stage: pTisaxMna. 1. Breast, mass/lumpectomy - LEFT BREAST TISSUE WITH NEEDLE PRE-OPERATIVE DIAGNOSIS Left breast microcalcifications; long stitch lateral, medial stitch blue, short stitch superior GROSS DESCRIPTION The specimen is received in formalin labelled Verena Velasco, Left Breast Tissue with Needle, Usual Markings, and consists of a needle localization fibrofatty fragment measuring 5.5 x 3.8 x 1.5 cm. with a long lateral, short superior, and medium medial suture with a J-wire inserted into the mid medial inferior aspect of the specimen and extending into the mid inferior area of the specimen. The superior anterior aspect is inked blue , the inferior anterior aspect is inked green and the deep/posterior aspect is inked black. The specimen is CONTINUED ON NEXT PAGE * ML=Testing performed at Main Lab DEPARTMENT OF PATHOLOGY, [address] [place] [address] Shmuel Velazquez M.D. Director [facility] Permit #[id number] RUN DATE: 06/04/12 [facility] LAB LIVE PAGE 2 RUN TIME: [address] [place] [address] Specimen Inquiry Patient: VERENA VELASCO [id number] (Continued) GROSS DESCRIPTION (Continued) GROSS DESCRIPTION (Continued) serially sectioned along its short axis and demonstrates lobulated fibrofatty breast parenchyma with focal punctuate hemorrhage near the area of the needle tip. Submitted entirely from medial to lateral in A through H. Signed (signature on file) Shmuel Velazquez MD 1231 END OF REPORT * ML=Testing performed at Main Lab DEPARTMENT OF PATHOLOGY, [address] [place] [address] Shmuel Velazquez M.D. Director [facility] Permit #[id number] 66 CHOLESTEROL INTERPRETATION: Desirable: Less than 200 MG/DL Borderline-High Risk: 200-239 MG/DL High-Risk: 240 MG/DL and over 67 HDL INTERPRETATION: Undesirable: High Risk: Less than 40 MG/DL Desirable: Low Risk: Greater than 60 MG/DL 68 LDL INTERPRETATION: Low Risk Optimal Level: LDL Less than 100 MG/DL Near or Above Optimal: LDL 100-129 MG/DL Borderline High Risk: LDL 130-159 MG/DL High Risk: LDL 160-189 MG/DL Very High Risk: LDL Greater than 189 MG/DL 69 Anion gap measurement may be of limited value in the presence of any alkalosis, especially in a combined acid base disorder. . 70 A metabolite of Naproxen, O-desmethylnaproxen, has been shown to interfere with the Jendrassik-Darling method for measuring total bilirubin. Samples from patients who have taken Naproxen have shown spurious elevation in total bilirubin levels. 71 Because ethnic data is not always readily available, this report includes an eGFR for both -Americans and non- Americans. The National Kidney Disease Education Program (NKDEP) does not endorse the use of the MDRD equation for patients that are not between the ages of 18 and 70, are , have extremes of body size, muscle mass, or nutritional status, or are non- or non-. According to the National Kidney Foundation, irrespective of diagnosis, the stage of the disease is based on the level of kidney function: Stage Description GFR(mL/min/1.73 m(2)) 1 Kidney damage with normal or decreased GFR 90 2 Kidney damage with mild decrease in GFR 60-89 3 Moderate decrease in GFR 30-59 4 Severe decrease in GFR 15-29 5 Kidney failure <15 (or dialysis) 72 -- REFERENCE VALUE -- 25-HYDROXY D TOTAL (D2+D3) Optimum levels in the normal population are 25-80 Test Performed by: [facility] Dpt of Lab Med and Pathology [address] [place] [address] Paste Up Artist Apprentice: Anish aRpp III, M.D. 73 ---- RUN DATE: 02/05/10 [facility] NMI LIVE PAGE 1 RUN TIME: 1412 Specimen Inquiry RUN USER: INTERFACE -- Name: VERENA VELASCO [facility]#: [id number] Status: REG REF Re02/03/10 Age/Sex: 69/F Unit#: [id number] Location: [address] [place] [address]. : [birth year] -- Specimen: [id number] SOUT Spec Date: 02/03/[address]: Lincoln coto MD Spec Type: SURGICAL P Received: 02/04/10-1024 Copies to: Sparkle gil MD SPECIMEN BIOPSY DISTAL ESOPHAGUS AT 25 CM. HISTORY POST-OP DIAGNOSIS: Hiatal hernia, gastroesophageal reflux disease, Ponce t's, osteoporosis CLINICAL INFORMATION: No current symptoms, dyspepsia - 100% relief on nex ium GROSS DESCRIPTION Specimen received in formalin labelled Verena Velasco, Distal Esophagus at 38 cm. and consists of three fragments of yan-yellow tissue each measuring 0.3 x 0.2 x 0.2 cm. Submitted entirely, one cassette. DIAGNOSIS Esophagus at 25 cm., biopsy: A) Squamocolumnar junction with changes suggestive, but not definitive of, reflux disease. B) Intestinal metaplasia is not seen. Signed Electronically by: BAR OBRIEN 02/05/10 1411 -- -- DEPARTMENT OF PATHOLOGY, [address] [place] [address] [facility] Permit #[id number] Shmuel Velazquez M.D. Director Bar Obrien M.D. Manager Parking Dir rody -- 74 CHOLESTEROL INTERPRETATION: Desirable: Less than 200 MG/DL Borderline-High Risk: 200-239 MG/DL High-Risk: 240 MG/DL and over 75 HDL INTERPRETATION: Undesirable: High Risk: Less than 40 MG/DL Desirable: Low Risk: Greater than 60 MG/DL 76 LDL INTERPRETATION: Low Risk Optimal Level: LDL Less than 100 MG/DL Near or Above Optimal: LDL 100-129 MG/DL Borderline High Risk: LDL 130-159 MG/DL High Risk: LDL 160-189 MG/DL Very High Risk: LDL Greater than 189 MG/DL 77 -- REFERENCE VALUE -- 25-HYDROXY D TOTAL (D2+D3) Optimum levels in the normal population are 25-80 Test Performed by: [facility] Dpt of Lab Med and Pathology [address] [place] [address] Paste Up Artist Apprentice: Anish Rapp III, M.D. Procedures Date Code Description Status 06/11/2018 [id number] Mammogram Completed 05/11/2017 55481 EKG Tracing & Interpretation Completed 04/25/2017 [id number] Mammogram Completed 04/06/2016 [id number] Mammogram Completed 06/18/2015 [id number] Bone Mineral Density Test Completed 04/07/2015 [id number] Mammogram Completed 10/01/2014 [id number] Mammogram Completed 03/19/2014 [id number] Mammogram Completed 09/19/2013 [id number] Mammogram Completed 08/15/2013 [id number] Bone Mineral Density Test Completed 03/18/2013 [id number] Mammogram Completed 03/12/2013 [id number] Colonoscopy Completed 12/12/2012 79686 EKG Tracing & Interpretation Completed 06/01/2012 [id number] Mammogram Completed 05/07/2012 [id number] Mammogram Completed 08/18/2011 [id number] Bone Mineral Density Test Completed 03/03/2009 [id number] Bone Mineral Density Test Completed 04/05/2007 [id number] Mammogram Completed Encounters Type Date Location Provider Dx Diagnosis Office Visit 10/04/2018 [facility] Sparkle Cancino, R13.10 Dysphagia, 2:40p Medicine Quita Smith unspecified [place] H92.01 Otalgia, right ear R53.1 Weakness Office Visit 03/28/2018 [facility] Vonda B00.2 Herpesviral 2:00p Medicine Quita Paulson, N.PJuice gingivostomatitis and [place] pharyngotonsillitis R60.0 Localized edema H92.01 Otalgia, right ear Office Visit 05/11/2017 11:00a [facility] Sparkle Z00.00 Encntr for Shannon Cancino M.D. general adult [place] medical exam w/o abnormal findings M81.0 Age-related osteoporosis w/o current pathological fracture L98.9 Disorder of the skin and subcutaneous tissue, unspecified R06.02 Shortness of breath R00.1 Bradycardia, unspecified Office Visit 01/13/2017 10:00a [facility] Sparkle L50.0 Allergic Shannon Cancino M.D. urticaria [place] Office Visit 12/22/2016 11:20a [facility] Dermatology Mario Young, L02.02 Furuncle of MD face L02.423 Furuncle of right upper limb L02.424 Furuncle of left upper limb L02.426 Furuncle of left lower limb Office Visit 11/24/2016 9:00a [facility] Sparkle L71.9 Rosacea, Shannon Cancino M.D. unspecified [place] J45.20 Mild intermittent asthma, uncomplicated L60.8 Other nail disorders M81.0 Age-related osteoporosis w/o current pathological fracture Office Visit 11/16/2016 2:00p [facility] Mario Young, L71.8 Other rosacea MD Office Visit 05/26/2016 2:20p [facility] Sparkle G62.9 Polyneuropathy , Shannon Cancino M.D. unspecified [place] D22.9 Melanocytic nevi, unspecified Office Visit 04/11/2016 [facility] Sparkle G62.9 Polyneuropathy, 10:40a Shannon Cancino M.D. unspecified [place] Office Visit 10/21/2015 [facility] Uriel Schaeffer NP R21 Rash and other 11:40a Medicine - nonspecific skin [place] eruption Office Visit 05/26/2015 [facility] Sparkle G62.9 Polyneuropathy, 2:40p Shannon Cancino M.D. unspecified [place] M81.0 Age-related osteoporosis w/o current pathological fracture Z23 Encounter for immunization J45.30 Mild persistent asthma, uncomplicated Office Visit 01/09/2015 4:00p [facility] Jenaro Benoit, 911.4 Injury Superficial Medicine - PHARMACEUTICAL WORKER Insect Bite Trunk [place] Nonvenomous W/O Infect 916.4 Injury Superficial Insect Bite Hip Thigh Leg Ankle NV No Inf Office Visit 12/16/2014 11:30a [facility] Jenaro Benoit, E906.4 Bite Nonvenomous Medicine - PHARMACEUTICAL WORKER Arthropod [place] 923.21 Contusion Wrist Office Visit 11/24/2014 2:40p [facility] Sparkle 733.00 Osteoporosis Shannon Cancino M.D. Unspec [place] 735.8 Deformity Toe Other Acquired 493.00 Asthma Extrinsic Unspecified v03.82 Streptococcus Pneumoniae Vaccination Spec Other Office Visit 05/26/2014 2:40p [facility] Sparkle 493.90 Asthma Unspec W/O Shannon Cancino M.D. Status [place] Asthmaticus 472.0 Rhinitis Chronic 733.00 Osteoporosis Unspec 272.2 Hyperlipidemia Mixed V04.81 Need For Prophylactic Vaccination & Inoculation/Influenza 780.79 Malaise And Fatigue Other Office Visit 08/27/2013 9:40a [facility] [place] 733.00 Osteoporosis Shannon Cancino M.D. 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 Kyphoscoliosis [place] [facility]iopathic 733.00 Osteoporosis Unspec 493.00 Asthma Extrinsic Unspecified Office Visit 12/12/2012 11:00a [facility] V72.84 Examination Shannon Cancino M.D. Preoperative [place] Unspec 366.8 Cataract Other 493.90 Asthma Unspec W/O Status Asthmaticus 272.2 Hyperlipidemia Mixed Office Visit 11/20/2012 1:20p [facility] 477.9 Rhinitis Shannon Cancino M.D. Allergic Cause [place] Unspec 733.00 Osteoporosis Unspec 272.2 Hyperlipidemia Mixed Office Visit 05/22/2012 2:40p [facility] 493.90 Asthma Unspec W/O Shannon Cancino M.D. Status [place] Asthmaticus 733.00 Osteoporosis Unspec 618.4 Prolapse Uterovaginal Unspec Office Visit 02/21/2012 11:00a [facility] 435.9 TIA Ischemia Shannon Cancino M.D. Cerebral [place] Transient Unspec 493.90 Asthma Unspec W/O Status Asthmaticus 733.00 Osteoporosis Unspec V04.89 Need For Prophylactic Vaccination & Inoculation Other Virus 706.2 Sebaceous Cyst Office Visit 11/22/2011 2:40p [facility] 733.00 Osteoporosis Shannon Cancino M.D. Unspec [place] 493.90 Asthma Unspec W/O Status Asthmaticus 435.9 TIA Ischemia Cerebral Transient Unspec V76.51 Special Screening For Malignant Neoplasms Colon Office Visit 05/16/2011 DO Not Use [facility] 493.90 Asthma Unspec 3:00p Francheska Cancino M.D. W/O Status Asthmaticus 733.00 Osteoporosis Unspec 272.2 Hyperlipidemia Mixed Office Visit 03/12/2010 DO Not Use Vonda Paulson, 462 [facility]itis 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 Unspec 530.81 Esophageal Reflux Office Visit 09/30/2009 9:40a DO Not Use Facility Maintenance Worker [facility] Cancino, 724.5 Backache Unspec AT Jesús Smith 787.02 Nausea Alone Office Visit 08/18/2009 8:40a DO Not Use Facility Maintenance Worker [facility] 733.00 Osteoporosis AT Jesús Cancino M.D. 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 Skin 733.00 Osteoporosis Unspec 272.4 Hyperlipidemia Other Unspec 493.90 Asthma Unspec W/O Status Asthmaticus V04.81 Need For Prophylactic Vaccination & Inoculation/Influenza V03.82 Streptococcus Pneumoniae Vaccination Spec Other Plan of Treatment Future Appointment(s):04/08/2019 3:00 pm - [facility] Cancino M.D. at [facility]
--- OUTSIDE RECORDS SUMMARY | 2018-11-02 08:45 | XMS REPORT | Continuity of Care Document ---
:1940 External Reference #:[id number] Author Name Sherine Xie Care Team Providers Name Role Phone Sparkle Cancino MD Care Team Information Chiseler Head Unavailable Sparkle Cancino MD Primary Care Physician Unavailable Payers Date Identification Numbers Payment Provider Subscriber Policy Number: [id number] Medicare Verena Velasco PayID: [id number] [address] [facility] [place] [address] Effective: 2009 Policy Number: [id number] Medicare Verena Velasco Expires: 2018 PayID: [id number] [address] [place] [address] Policy Number: [id number] [employer] Verena Velasco Group Number: [id number] [address] PayID: [id number] [place] [address] Advance Directives Description No Information Available Problems Date Description Provider Status Onset: 10/11/2018 Dysphagia Dorita Ford NP Active Onset: 07/16/2009 Osteoporosis Sparkle Cancino M.D. Active Onset: 07/16/2009 Asthma without status asthmaticus Sparkle Cancino M.D. 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 Active Onset: 04/17/2017 Lymphomatoid papulosis Sparkle Cancino M.D. Active Family History Date Family Member(s) Observation [...] Patient has never smoked Smoking Status Reviewed: 10/31/18 Patient has never smoked Allergies, Adverse Reactions, Alerts Date Description Reaction Status Severity Comments 07/16/2009 Ibuprofen stomach irritation Active 07/16/2009 Chicken Active 07/16/2009 Nuts Active 07/16/2009 Dust Active 07/16/2009 Mold Active Medications Medication Date Status Form Strength Qnty SIG Indications Ordering Provider Amoxicillin/Cla 10/31 Active Tablets 875-125mg 20tab one tablet J01.90 s by mouth Varn, N.P. Potassium twice daily for 10 days Nasonex 03/28 Active Suspension 50mcg/Act 51gm use 1 spray H92.01 in each Varn, N.P. nostril once daily as needed Centrum Women 01/13 Active Tablets 1 qd Sarah Cancino Desloratadine 01/13 Active Tablets 5mg 30tab 1 by mouth L50.0 s every day Sarah Cancino Vitamin D-1000 08/27 Active Tablets 1000Unit 180ta 3 po qd bs Barak Strength Sarah Calcium 600 08/27 Active Tablets 600mg 2 po qd Sarah Cancino Proair HFA 05/23 Active Aerosol 108(90Bas 8.500 2 puffs 4 J45.909 e) gm times daily Cotton, mcg/Act as needed M.DJuice Advair Diskus 11/21 Active Aerosol 100-50mcg 180un use 1 J45.909 /Dose its inhalation Cotton, twice daily M.D. Aspirin Active Tablets DR 325mg 1 po qd Unknown / Metronidazole Active Cream 0.75% Apply To Yentzer, / Affected MD Mario Area Every Night Trimo-[place] Active Gel 0.025% Unknown / L-Carnitine Active Capsules 500mg Latov, MD Ilir Methotrexate Active Tablets 2.5mg [address] [facility] weekly , MD Gela Xylal Active prn for angioedema Vitamin B 12 Active 1 by mouth Unknown every day Folic Acid Active Tablets 1mg 1 by mouth every day Fluconazole Active Tablets 150mg 3tabs one po Vonda /0000 every 3 Varn, N.P. days for 3 doses Nitrofurantoin Active Capsules 100mg 1 by mouth Unknown Monohyd Macro twice a day Fluticasone 10/31 Hx Suspension 50mcg/Act 16uni 2 sprays J01.90 Vonda Propionate ts each Varn, N.P. - nostril 10/31 daily as needed Valacyclovir 03/28 Hx Tablets 1gm 20tab take 2 by B00.2 Vonda HCL s mouth every Varn, N.P. - 12 hours as 10/04 needed Nasonex 10/20 Hx Suspension 50mcg/Act 17gm 2 sprays to R2 Uriel each Laury, [employer] - nostril 11/24 once daily as needed Mupirocin 10/20 Hx Ointment 2% 22uni apply thin ts film of Laury, [employer] BU[employer] - ointment to 11/24 affected area(s) three times daily for 10-14 days Doxycycline 01/09 Hx Capsules 100mg 14cap 1 tab by 911.4 Jenaro Devries s mouth twice Benoit, [employer] BU[employer]ER - a day x 7 Vitamin E 11/24 Hx Capsules 400Unit 2 by mouth Sparkle /2015 every day Quita Cancino M.D. 05/26 Multivitamin/Ca 05/23 Hx Tabs 1 po qd Sparkle lcium /Vitamin Sarath Cancino M.D. 01/13 Desloratadine 11/20 Hx Tablets 5mg 90tab 1 by mouth 477.9 Sparkle /2013 s every day Quita Cancino M.D. 07/31 Proair HFA 05/22 Hx Aerosol 108(90Bas 8.500 2 puffs 4 493.90 e) mcg/ac gm times daily Cotton, - as needed M.D. 05/23 Alendronate 11/21 Hx Tablets 70mg 12tab one tablet 733.00 s weekly Cotton, - M.D. 02/20 Alendronate 07/19 Hx Tablets 70mg 12tab 1 tablet Sparkle Sodium s once Cotton, - weekly. .D. 05/16 Take on empty stomach, do not eat or lie down for 30 min after taking Alendronate 07/19 Hx Tablets 70mg 4tabs Take 1 Sparkle Sodium Tablet Once Cotton, - Weekly On .D. 11/21 An Empty Stomach, DO Not Eat Or Lie Down For 30 Minutes After Taking. Nexium 12/[address] 40mg 30cap 1 tablet s once daily Macon, - M.D. 03/12 Nexium 11/[address] 40mg 30cap 1 po qd 787.02 s Macon, - M.D. 12/14 Nexium 09/[address] 20mg 30cap 1 tab po qd 787.02 s Barak, - M.D. 11/04 Alendronate Hx Tablets 70mg 12tab one tablet Sparkle / s weekly Macon, - M.D. 03/12 Advair Diskus Hx Aerosol 250-50mcg 2unit 1 Sparkle /0000 /Dose s inhalation Cotton, - once daily M.D. 11/21 Nasonex Hx Suspension 50mcg/Act 1unit 2 sprays to Unknown /0000 s each - nostril 05/22 twice daily as needed Locoid Lipo Hx as Needed Unknown Cream /0000 - 11/24 Tamoxifen Hx 1 po qd Unknown Citrate /0000 - 05/26 Tamoxifen Hx Tablets 20mg 1 by mouth Unknown Citrate /0000 once daily - 03/28 Jublia Hx Solution 10% apply Unknown / topically - nail once 11/24 Erythromycin Hx Ointment 5mg/GM Apply A Unknown /0000 Thin Strip - To ALL 4 05/26 Margins Every Night AT Bedtime For Carnitine [...] Liquid 5% apply to Unknown Peroxide Wash / affected - area 10/04 night Nitrofurantoin Hx Capsules 100mg 1 by mouth Unknown Monohyd Macro / twice a day - for 5 days 10/10 Immunizations CPT Code Status Date Vaccine Reaction Lot # 53852 Given 05/03/2017 Influenza Virus Vaccine, No immediate [id number] Quadrivalent, Split, reaction...jh Preservative Free 07887 Given 05/13/2016 Influ Virus Vaccine, [id number] Quadrivalent, Split Virus, [place] [address] Given 05/26/2015 Influenza Virus Vaccine, [id number] Quadrivalent, Split, Preservative Free 60509 Given 11/24/2014 Pneumococcal Conjugate [id number] Vaccine 13 Valent For Intramuscular Use 67579 Given 05/26/2014 Flu Vaccine Split Virus [id number] Preservative Free For Indiv 3Yr Older 16104 Given 08/27/2013 Tdap - [id number] Tetanus/Diptheria/Acellula r Pertussis 83824 Given 05/17/2013 Flu Vaccine Split Virus [id number] Preservative Free For Indiv 3Yr Older [id number] Given 04/25/2012 Fluzone Vaccine [id number] 43270 Given 02/21/2012 Zoster (Zostavax) [id number] 40602 Given 07/21/2009 Influenza Virus Vaccine, [id number] 5P Pandemic Formulation 33799 Given 07/16/2009 Pneumonia Vaccine 45385 Given 07/16/2009 Influenza Virus 3Yrs & [id number] Over Vital Signs Date Vital Result Comment 10/31/2018 3:34pm Height 68 inches 5'8" Weight 144.00 lb Heart Rate 74 /min BP Systolic 127 mmHg BP Diastolic 71 mmHg Body Temperature 98.6 F O2 % BldC Oximetry 97 % BMI (Body Mass Index) 21.9 kg/m2 10/11/2018 2:45pm Height 68 inches 5'8" Weight [...] Result H/L Range Note Liver Function 06/06/2018 [facility] Total Protein 6.5 g/dL N 6.4-8.[address] [place] [address] [phone] Albumin 3.9 g/dL N 3.2-5.2 Globulin 2.6 g/dL N 2-4 Albumin/Globulin Ratio 1.5 N 1-3 Total Bilirubin 0.40 mg/dL N 0.2-1.0 Direct Bilirubin 0.10 mg/dL N 0.03-0.18 Indirect Bilirubin 0.3 mg/dL N 0.3-1.0 Alkaline Phosphatase 92 U/L N 34-104 Alt 16 U/L N 7-52 Ast 21 U/L N 13-39 Iron & Iron Binding 03/15/2017 [facility] Iron 122 g/dL N 50 -[address] [place] [address] [phone] Unsaturated Iron Binding 207 g/dL N Total Iron Binding Capacity 329 g/dL N 250-450 % Iron Saturation 37 % N 15-55 Laboratory test 03/15/2017 [facility] TSH (Thyroid 5.10 mcIU/mL N 0.34-5.[address] Stim Horm) [place] [address] [phone] Free T4 (Free Thyroxine) 0.72 ng/dL N 0.61-1.12 Ferritin 61.0 ng/mL N 11-307 Vitamin D Total 25(Oh) 44.2 ng/mL N 30-50 Tryptase 2.6 ng/mL N <11.5 1 Complement C3 101 mg/dL N 75 - 175 2 Complement C4 23 mg/dL N 14 - 40 3 Aspergillus Fumigatus IgE <0.35 kU/L N 4 Silver Birch IgE 1.84 kU/L N 5 [place] Maple IgE <0.35 kU/L N 6 Cashew Allergen IgE <0.35 kU/L N 7 Cat Epithelium Allergen IgE <0.35 kU/L N 8 Cladosporium herbarum IgE <0.35 kU/L N 9 TSH Receptor Assay <1.00 IU/L N 10 Alternaria tenuis IgE Allergen <0.35 kU/L N 11 Egg White Allergen IgE 0.38 kU/L N 12 F[place]le Allergen IgE <0.35 kU/L N 13 Codfish Allergen IgE <0.35 kU/L N 14 Dermatophagoides farinae IgE 34.5 kU/L N 15 Dermatophagoides pteronyssinus 42.5 kU/L N 16 Dog Dander Allergen IgE 0.39 kU/L N 17 Egg Yolk Allergen IgE <0.35 kU/L N 18 Elm Tree Allergen IgE <0.35 kU/L N 19 Bahraini Plantain Allergen IgE <0.35 kU/L N 20 Hazelnut Allergen IgE 1.26 kU/L N 21 Melgoza's Quarter Allergen IgE <0.35 kU/L N 22 Rast Cow's Milk <0.35 kU/L N 23 [place] Allergen IgE 0.57 kU/L N 24 Pecan Allergen IgE <0.35 kU/L N 25 Penicillium notatum Allerg IgE <0.35 kU/L N 26 Rough Pigweed Allergen IgE <0.35 kU/L N 27 Common Ragweed (Short) Allerge <0.35 kU/L N 28 Shrimp Allergen IgE <0.35 kU/L N 29 Soybean Allergen IgE <0.35 kU/L N 30 Dominic Grass Allergen IgE <0.35 kU/L N 31 [place] Allergen IgE <0.35 kU/L N 32 Rast Wheat <0.35 kU/L N 33 White Calixto Allergen IgE <0.35 kU/L N 34 Goose Feathers Allergen IgE Ab <0.35 kU/L N 35 Immunoglobulin E (Ige) 219 kU/L Abnormal <=214 36 Peanut, IgE w/ Reflex 0.15 kU/L N 37 C1 Esterase Inhibitor Function 88 %ofnorm N 38 Peanut Component 03/15/2017 [facility] Peanut Component <0.10 kU /L N [address] Mayra h 1 [place] [address] [phone] Peanut Component Mayra h 2 <0.10 kU/L N 40 Peanut Component Mayra h 3 <0.10 kU/L N 41 Peanut Component Mayra h 8 0.54 kU/L N 42 Peanut Component Mayra h 9 <0.10 kU/L N 43 Peanut Component Interp See Comment N 44 Rast [place] Ige 03/15/2017 [facility] [place] Tree <0.35 kU/L N <0.[address] [place] [address] [phone] [place] Conventional Class 0 N 45 CBC Auto Diff 02/04/2017 [facility] White Blood 5.6 10^3/uL N 3.5-10.[address] [place] [address] [phone] Red Blood Count 3.64 10^6/uL Low 4.0-5.4 [...] % 0.1 N Comp Metabolic Panel 02/04/2017 [facility] Sodium 139 mmol/L N 133-[address] [place] [address] [phone] Potassium 4.2 mmol/L N 3.5-5.0 Chloride 108 [...] 77.9 N >60 46 Laboratory test 10/24/2016 [facility] MRSA Screen SEE RESULT 47, [address] [place] [address] [phone] Wound 10/24/2016 [facility] Wound/Misc SEE RESULT 49 Culture/Sensi [address] [place] [address] Stain [phone] Carnitine Free & 08/01/2016 [facility] Total 46 nmol/mL N 34- [address] [place] [address] [phone] Free Carnitine 42 nmol/mL N 25-54 Acylcarnitine 4 nmol/mL Abnormal 5-30 Acylcarn/Free Carnitine Ratio 0.1 N 0.1-0.8 Carnitine Interpretation See Comment N 50 Comp Metabolic Panel 04/12/2016 [facility] Sodium 138 mmol/L N 133-145 [address] [place] [address] [phone] Potassium 4.6 mmol/L N 3.5-5.0 Chloride 105 [...] 57.0 N >60 Egfr 73.4 N >60 51 Laboratory test 04/12/2016 [facility] Vitamin B12 347 pg/mL N 180-914 52 finding [address] [place] [address] [phone] TSH (Thyroid Stim Horm) 5.98 mcIU/mL High 0.34-5.60 Protein 04/12/2016 [facility] Total 6.9 g/dL N 6.3 - Electrophoresis 101 [facility] Protein(Pep) 7.9 [place] [address] [phone] Albumin 3.4 g/dL N 3.4-4.7 Alpha-1 Globulin 0.3 g/dL N 0.1-0.3 Alpha-2 Globulin 1.1 g/dL Abnormal 0.6-1.0 Beta Globulin 0.8 g/dL N 0.7-1.2 Gamma Globulin 1.3 g/dL N 0.6-1.6 Albumin/Globulin Ratio 0.97 N Impression See Comment N 53 CBC Auto Diff 04/12/2016 [facility] White Blood 5.9 10^3/uL N 3.5-10.[address] [place] [address] [phone] Red Blood Count 3.94 10^6/uL Low 4.0-5.4 [...] Nucleated Red Blood Cells % 0 N Laboratory test 04/12/2016 [facility] Erythrocyte Sed 22 mm/Hr N 0-[address] [place] [address] [phone] Comp Metabolic 04/29/2015 [facility] Sodium 140 mmol/L N 133- [address] [place] [address] [phone] Potassium 4.1 mmol/L N 3.5-5.0 Chloride 106 [...] 59.4 N >60 Egfr 76.3 N >60 54 Laboratory test 04/29/2015 [facility] Vitamin B12 423 pg/mL N 180-914 [address] [place] [address] [phone] TSH (Thyroid Stim Horm) 5.20 ?IU/mL N 0.34-5.60 CBC Auto Diff 04/29/2015 [facility] White Blood 5.3 10^3/uL N 4.8-10.[address] [place] [address] [phone] Red Blood Count 3.99 10^6/uL Low 4.0-5.4 [...] Nucleated Red Blood Cells % 0 N Lipid Profile (Trig/Chol/HDL) 11/18/2014 Triglycerides 179 mg/dL N 56 Cholesterol 160 mg/dL N 57 HDL Cholesterol 54.6 mg/dL N 58 LDL Cholesterol 70 mg/dL N 59 Vitamin D Total 11/18/2014 Vitamin D Total 42.1 ng/mL N 30-50 25(Oh) 25(Oh) Vitamin D, 25 09/03/2013 [facility] 25-Hydroxy <4.0 ng/mL Hydroxy [address] Vitamin D2 [place] [address] [phone] 25-Hydroxy Vitamin D3 48 ng/mL 25-Hydroxy Vitamin D Total 48 ng/mL 60 Comp Metabolic Panel 09/03/2013 [facility] Sodium 141 mmol/L 133-[address] [place] [address] [phone] Potassium 4.1 mmol/L 3.5-5.0 Chloride 108 mmol/L [...] Egfr Non- 61.0 >60 Egfr 78.5 >60 61 Pthi 09/03/2013 [facility] PTH Intact 2.7 pmol/L 1.3-9.[address] [place] [address] [phone] Calcium (PTH Intact) 9.3 mg/dL 8.1-9.9 Surgical 03/12/2013 [facility] S RUN DATE: [address] 03/14/ <[place] [address] NOTE> [phone] Laboratory test 10/26/2012 [facility] Lipase 36 U/L 22-[address] [place] [address] [phone] Lipid Profile 10/26/2012 [facility] Triglycerides 159 mg/dL 40-200 (Trig/Chol/HDL) [address] [place], [place] [address] [phone] Cholesterol 177 mg/dL Less than 200 HDL Cholesterol 60 mg/dL 40-60 63 Cholesterol/HDL Ratio 3.0 Average 1-4.44 LDL Cholesterol 85.2 mg/dL Less Than 100 64 Surgical 06/01/2012 [facility] S RUN DATE: [address] 06/04/ [place] [address] NOTE> [phone] Lipid Profile 06/16/2011 [facility] Triglyceride 123 mg/dL 40 -200 (Trig/Chol/HDL) [address] [place], [place] [address] [phone] Cholesterol 199 mg/dL Less Than 200 66 High Density Lipoprotein 59 mg/dL 40-60 67 Cholesterol/HDL Ratio 3.37 AVERAGE 1-4.44 Low Density Lipoprotein 115 mg/dL High Less Than 100 68 Comp Metabolic Panel 06/16/2011 [facility] Sodium 139 mmol/L 135-[address] [place] [address] [phone] Potassium 3.5 mmol/L 3.5-5.0 Chloride 105 mmol/L [...] > 60 71 Vitamin D, 25 06/16/2011 [facility] 25-Hydroxy Vitamin <4.0 ng/ mL () Hydroxy [address] [place] [address] [phone] 25-Hydroxy Vitamin D3 36 ng/mL () 25-Hydroxy Vitamin D Total 36 ng/mL () 72 Surgical 02/03/2010 [facility] Surgical [address] Pathology <SEE NOTE> [place] [address] [phone] Vitamin D, 25 08/18/2009 [facility] 25-Hydroxy <4.0 ng/mL () Hydroxy [address] Vitamin D2 [place] [address] [phone] 25-Hydroxy Vitamin D3 37 ng/mL () 25-Hydroxy Vitamin D Total 37 ng/mL () 74 Lipid Profile 08/18/2009 [facility] Triglyceride 95 mg/dL 40- 200 (Trig/Chol/HDL) [address] [place] [address] [phone] Cholesterol 185 mg/dL Less Than 200 75 High Density Lipoprotein 53 mg/dL 40-60 76 Cholesterol/HDL Ratio 3.49 AVERAGE 1-4.44 Low Density Lipoprotein 113 mg/dL High Less Than 100 77 1 Test Performed by: [place] [address] 2 Test Performed by: [place] [address] 3 Test Performed by: [place] [address] 4 Class 0 (Negative <0.35) Test Performed by: [place] [address] 5 Class 2 (Positive 0.70-3.49) Test Performed by: [place] [address] 6 Class 0 (Negative <0.35) Test Performed by: [place] [address] 7 Class 0 (Negative <0.35) Test Performed by: [place] [address] 8 Class 0 (Negative <0.35) Test Performed by: [place] [address] 9 Class 0 (Negative <0.35) Test Performed by: [place] [address] 10 REFERENCE VALUE 0.00 - 1.75 ADDITIONAL INFORMATION At a decision limit of 1.75 IU/L, this assay has 97% sensitivity and 99% specificity for detection of Graves' disease. In healthy individuals and in patients with thyroid disease without diagnosis of Graves' disease, the upper limit of anti-TSHR values are 1.22 IU/L and 1.58 IU/L, respectively (97.5th percentiles). Test Performed by: [place] [address] 11 Class 0 (Negative <0.35) Test Performed by: [place] [address] 12 Class 1 (Equivocal 0.35-0.69) Test Performed by: [place] [address] 13 Class 0 (Negative <0.35) Test Performed by: [place] [address] 14 Class 0 (Negative <0.35) Test Performed by: [place] [address] 15 Class 4 (Strongly Positive 17.5-49.9) Test Performed by: [place] [address] 16 Class 4 (Strongly Positive 17.5-49.9) Test Performed by: [place] [address] 17 Class 1 (Equivocal 0.35-0.69) Test Performed by: [place] [address] 18 Class 0 (Negative <0.35) Test Performed by: [address] [address] 19 Class 0 (Negative <0.35) Test Performed by: [address] [address] 20 Class 0 (Negative <0.35) Test Performed by: [address] [address] 21 Class 2 (Positive 0.70-3.49) Test Performed by: [address] [address] 22 Class 0 (Negative <0.35) Test Performed by: [address] [address] 23 Class 0 (Negative <0.35) Test Performed by: [address] [address] 24 Class 1 (Equivocal 0.35-0.69) Test Performed by: [address] [address] 25 Class 0 (Negative <0.35) Test Performed by: [address] [address] 26 Class 0 (Negative <0.35) Test Performed by: [address] [address] 27 Class 0 (Negative <0.35) Test Performed by: [address] [address] 28 Class 0 (Negative <0.35) Test Performed by: [address] [address] 29 Class 0 (Negative <0.35) Test Performed by: [address] [address] 30 Class 0 (Negative <0.35) Test Performed by: [address] [address] 31 Class 0 (Negative <0.35) Test Performed by: [address] [address] 32 Class 0 (Negative <0.35) Test Performed by: [address] [address] 33 Class 0 (Negative <0.35) Test Performed by: [address] [address] 34 Class 0 (Negative <0.35) Test Performed by: [place] [address] 35 Class 0 (Negative <0.35) Test Performed by: [place] [address] 36 Test Performed by: [place] [address] 37 Class 0/1 (Borderline/Equivocal 0.10-0.34) Test Performed by: [place] [address] 38 REFERENCE VALUE >67 (Normal) 41-67 (Equivocal) <41 (Abnormal) Test Performed by: [place] [address] 39 Class 0 (Negative <0.10) 40 Class [...] history of allergen exposures. Test Performed by: [place] [address] 45 This conventional EIA uses allergen-coated discs from several suppliers and an enzyme-labeled anti-IgE. CLASS INTERPRETATION: <0.35 kU/L=0, Below Detection; 0.35-0.69 kU/L=1, Low Positive; 0.70-3.49 kU/L=2, Moderate Positive; 3.50-17.49 kU/L=3, Positive; 17.50-49.99 kU/L= 4, Strong Positive; 50.00-99.99 kU/L=5, Very Strong Positive; >99.99 kU/L=6, Very Strong Positive *This test was developed and its performance characteristics determined by [facility]. It has not been cleared or approved by the U.S. Food and Drug Administration. Test Performed by: [facility], Interface [address] [place] [address] 98 Because ethnic data is not always readily [...] 5 Kidney failure <15 (or dialysis) 47 [id number] SEE RESULT BELOW Name: VERENA VELASCO : [address]: Dolly DEUTSCH Acct: [id number] Unit: [id number] AGE: 76 Location: [facility] Re10/24/16 SEX: F Status: REG REF SPEC: [id number] ANKITA: 10/24/[address]: Dolly DEUTSCH REQ: [id number] RECD: 10/24/16 STATUS: COMP _ SOURCE: NASAL SPDESC: ORDERED: MRSA PCR-Nasal COMMENTS: [id number] Procedure Result Reported Site MRSA PCR (Nasal) Final 10/24/162028 ML Organism 1 MRSA NEGATIVE * ML - MAIN LAB (PSC1) . END OF REPORT * ML=Testing performed at Main Lab DEPARTMENT OF PATHOLOGY, [address] [place] [address] Shmuel Velazquez M.D. Director CRISTELA # [id number] 49 SEE RESULT BELOW Name: VERENA VELASCO : [address]: Dolly DEUTSCH Acct: [id number] Unit: [id number] AGE: 76 Location: [facility] Re10/24/16 SEX: F Status: REG REF SPEC: [id number] ANKITA: 10/24/[address] [facility] [address]: Dolly DEUTSCH REQ: [id number] RECD: 10/24/16 STATUS: DELVIN GABRIEL DR: Sparkle Cancino MD _ SOURCE: MIS SOURC SPDESC: ORDERED: Culture Stain COMMENTS: [id number] QUERIES: Specimen Description LEFT FOREHEAD Procedure Result Reported Site Wound/Misc Gram Stain Final 10/25/16- 0804 ML 2+ Epithelial Cells No Organisms Seen Wound/Misc Culture Final 10/26/16- 1227 ML Organism 1 NORMAL CLEMENTE Quantity 1+ * ML - [facility] ([facility]) . END OF REPORT * ML=Testing performed at [facility] DEPARTMENT OF PATHOLOGY, [address] [place] [address] Shmuel Velazquez M.D. Director [facility] # [id number] 50 In this sample, the carnitine profile was essentially normal. ADDITIONAL INFORMATION This test was developed and its performance characteristics determined by [facility] in a manner consistent with CLIA requirements. This test has not been cleared or approved by the U.S. Food and Drug Administration. Test Performed by: [facility] - [address] [address] Water Supply Technician: Filiberto Garnica II, M.D., Ph.D. 51 Because ethnic data is not always readily [...] 15-29 5 Kidney failure <15 (or dialysis) 52 Normal Range 180 to 914 Indeterminate Range 145 to 180 Deficient Range <145 53 RESULT: No apparent monoclonal protein on serum electrophoresis. Test Performed by: [facility] [address] [place] [address] Water Supply Technician: Filiberto Garnica II, M.D., Ph.D. 54 Because ethnic data is not always readily [...] 15-29 5 Kidney failure <15 (or dialysis) 55 Normal Range 180 to 914 Indeterminate Range 145 to 180 Deficient Range <145 56 Desirable <150 Borderline high 150-199 High 200-499 Very High >500 57 Desirable <200 Borderline high 200-239 High >239 58 Low <40 Desirable: 40-60 High: >60 59 Desirable: <100 mg/dL Near Optimal: 100-129 mg/dL Borderline High: 130-159 mg/dL High: 160-189 mg/dL Very High: >189 mg/dL 60 -- REFERENCE VALUE -- 25-HYDROXY D TOTAL (D2+D3) Optimum levels in the healthy population are 20-50, patients with bone disease may benefit from higher levels within this range. Test Performed by: [facility] [address] [place] [address] Water Supply Technician: Anish Rapp III, M.D. 61 Because ethnic data is not always readily [...] 15-29 5 Kidney failure <15 (or dialysis) 62 RUN DATE: 03/14/13 [facility] LAB LIVE PAGE 1 RUN TIME: [address] [place] [id number] Specimen Inquiry Name: GARETTJHONVERENA Covarrubias : [address]: Lincoln Lombardo MD Acct: [id number] Unit: [id number] AGE: 72 Location: ENDO Re03/12/13 SEX: F Status: REG REF SPEC: [id number] ANKITA: 03/12/13- SUBM DR: Lincoln Lombardo MD REQ: [id number] RECD: 03/12/131008 STATUS: ANITA GABRIEL DR: Sparkle Cancino MD _ ORDERED: LEVEL IV Deeper levels of sectioning show similar histologic features. The diagnosis remains unchanged. Addendum Signed (signature on file) Nial Norman MD 1403 FINAL DIAGNOSIS Esophagus at 39 cm., biopsy: A. Squamous and columnar mucosa with mild chronic inflammation. B. No evidence of intestinal metaplasia or dysplasia. COMMENT: Deeper levels of sectioning through the block are pending to be certain the findings are screening representative. The results will be reported in an addendum or this report will be revised if necessary. 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 Director [facility] Permit #[id number] RUN DATE: 03/14/13 [facility] LAB LIVE PAGE 2 RUN TIME: 1403 [facility] [place], [place] [address] Specimen Inquiry Patient: VERENA VELASCO [id number] (Continued) GROSS DESCRIPTION (Continued) GROSS DESCRIPTION The specimen is received in formalin labeled Verena Velasco, Esophagus at 39 cm. and consists of a 0.3 x 0.3 x 0.2 cm. yan-white portion of tissue. Submitted entirely, one cassette. Signed (signature on file) Nila Norman MD 1744 END OF REPORT * ML=Testing performed at Main Lab DEPARTMENT OF PATHOLOGY, [facility] [place], [place] [address] Shmuel Velazquez M.D. Director [facility] Permit #[id number] HDL Interpretation: Undesirable: High Risk: Less than 40 MG/DL Desirable: Low Risk: Greater than 60 MG/DL 64 LDL Interpretation: Low Risk Optimal Level: LDL Less than 100 MG/DL Near or Above Optimal: LDL 100-129 MG/DL Borderline High Risk: LDL 130-159 MG/DL High Risk: LDL 160-189 MG/DL Very High Risk: LDL Greater than 189 MG/DL 65 RUN DATE: 06/04/12 [facility] LAB LIVE PAGE 1 RUN TIME: 1231 [address] [facility] [place], [place] [address] Specimen Inquiry Name: VERENA VELASCO : [address]: Genoveva Hale MD Acct: [id number] Unit: [id number] AGE: 72 Location: OR Re06/01/12 SEX: F Status: REG [facility] SPEC: [id number] ANKITA: 06/01/12- SUBM DR: Genoveva Hale MD REQ: [id number] RECD: 06/01/12-1305 STATUS: ANITA GABRIEL DR: Barak SINGH,Nila Tomas [...] breast tissue. 8. Micro-invasion/Invasion: Not seen. 9. ER/WV by immunohistochemistry with appropriate controls: a. ER: Pending. b. WV: Pending. B. Other Findings: Proliferative fibrocystic change. [...] performed at Main Lab DEPARTMENT OF PATHOLOGY, [facility] [place] [id number] Shmuel Velazquez M.D. Director [facility] Permit #[id number] RUN DATE: 06/04/12 [facility] LAB LIVE PAGE 2 RUN TIME: [address] [place] [address] Specimen Inquiry Patient: GARETTRONAKVERENA [id number] (Continued) GROSS DESCRIPTION (Continued) GROSS DESCRIPTION (Continued) serially sectioned along its short axis and demonstrates lobulated fibrofatty breast parenchyma with focal punctuate hemorrhage near the area of the needle tip. Submitted entirely from medial to lateral in A through H. Signed (signature on file) Shmuel Velazquez MD 1231 END OF REPORT * ML=Testing performed at Main Lab DEPARTMENT OF PATHOLOGY, [address] [place] [address] Shmuel Velazquez M.D. Director [facility] Permit #[id number] CHOLESTEROL INTERPRETATION: Desirable: Less than 200 [...] has been shown to interfere with the Jendrassik-Nadiya method for measuring total bilirubin. Samples from [...] normal population are 25-80 Test Performed by: [facility] Dpt of Lab Med and Pathology [address] [place] [address] Water Supply Technician: Anish Rapp III, M.D. 73 ---- RUN DATE: 02/05/10 [facility] NMI LIVE PAGE 1 RUN TIME: 1411 Specimen Inquiry RUN USER: INTERFACE -- Name: GARETTRONAKVERENA Accanne#: [id number] Status: REG REF Re02/03/10 Age/Sex: 69/F Unit#: [id number] Location: [address] [place] [address]. : [birth year] -- Specimen: [id number] SOUT Spec Date: 02/03/[address]: Lincoln coto MD Spec Type: SURGICAL [...] 02/05/10 1411 -- -- DEPARTMENT OF PATHOLOGY, [address] [place] [address] [facility] Permit #[id number] Shmuel Velazquez M.D. Director Bar Obrien M.D. Case Management Coordinator Dir rody -- 72 -- REFERENCE VALUE -- 25-HYDROXY D TOTAL (D2+D3) Optimum levels in the normal population are 25-80 Test Performed by: [facility] Dpt of Lab Med and Pathology [address] [place] [address] Water Supply Technician: Anish Rapp III, M.D. 75 CHOLESTEROL INTERPRETATION: Desirable: Less than 200 MG/DL Borderline-High Risk: 200-239 MG/DL High-Risk: 240 MG/DL and over 76 HDL INTERPRETATION: Undesirable: High Risk: Less than 40 MG/DL Desirable: Low Risk: Greater than 60 MG/DL 77 LDL INTERPRETATION: Low Risk Optimal Level: LDL Less than 100 MG/DL Near or Above Optimal: LDL 100-129 MG/DL Borderline High Risk: LDL 130-159 MG/DL High Risk: LDL 160-189 MG/DL Very High Risk: LDL Greater than 189 MG/DL Procedures Date Code Description Status 06/11/2018 [id number] Mammogram Completed 05/11/2017 87222 EKG Tracing & Interpretation Completed 04/25/2017 [id number] Mammogram Completed 04/06/2016 [id number] Mammogram Completed 06/18/2015 [id number] Bone Mineral Density Test Completed 04/07/2015 [id number] Mammogram Completed 10/01/2014 [id number] Mammogram Completed 03/19/2014 [id number] Mammogram Completed 09/19/2013 [id number] Mammogram Completed 08/15/2013 [id number] Bone Mineral Density Test Completed 03/18/2013 [id number] Mammogram Completed 03/12/2013 [id number] Colonoscopy Completed 12/12/2012 83355 EKG Tracing & Interpretation Completed 06/01/2012 [id number] Mammogram Completed 05/07/2012 [id number] Mammogram Completed 08/18/2011 [id number] Bone Mineral Density Test Completed 03/03/2009 [id number] Bone Mineral Density Test Completed 04/05/2007 [id number] Mammogram Completed Encounters Type Date Location Provider Dx Diagnosis Office Visit 10/11/2018 Verifying Specialist Gastroenterology Dorita Ford, R13.10 Dysphagia, 3:00p MATERIALS BUYER unspecified Z80.0 Family history of malignant neoplasm of digestive organs K21.0 Gastro-esophageal reflux disease with esophagitis Office Visit 10/04/2018 2:40p Verifying Specialist Internal [facility] R13.10 Dysphagia, Shannon Cancino M.D. unspecified H92.01 Otalgia, right ear R53.1 Weakness Office Visit 03/28/2018 [facility] Internal Vonda B00.2 Herpesviral 2:00p Medicine Khurram, N.PJuice gingivostomatitis and pharyngotonsillitis R60.0 Localized edema H92.01 Otalgia, right ear Office Visit 05/11/2017 11:00a [facility] Internal [place] Z00.00 Encntr for Shannon Cancino M.D. general adult medical exam w/o abnormal findings M81.0 Age-related osteoporosis w/o current pathological fracture L98.9 Disorder of the skin and subcutaneous tissue, unspecified R06.02 Shortness of breath R00.1 Bradycardia, unspecified Office Visit 01/13/2017 10:00a [facility] Internal [place] L50.0 Allergic Shannon Cancino M.D. urticaria Office Visit 12/22/2016 11:20a [facility] Dermatology Mario Young, L02.02 Furuncle of MD face L02.423 Furuncle of right upper limb L02.424 Furuncle of left upper limb L02.426 Furuncle of left lower limb Office Visit 11/24/2016 9:00a [facility] Internal [place] L71.9 Rosacea, Shannon Cancino M.D. unspecified J45.20 Mild intermittent asthma, uncomplicated L60.8 Other nail disorders M81.0 Age-related osteoporosis w/o current pathological fracture Office Visit 11/16/2016 2:00p [facility] Dermatology Mario Young, L71.8 Other rosacea MD Office Visit 05/26/2016 2:20p [facility] Internal [place] G62.9 Polyneuropathy , Shannon Cancino M.D. unspecified D22.9 Melanocytic nevi, unspecified Office Visit 04/11/2016 [facility] [place] G62.9 Polyneuropathy, 10:40a Shannon Cancino M.D. unspecified Office Visit 10/21/2015 [facility] Internal Uriel Schaeffer NP R21 Rash and other 11:40a Medicine nonspecific skin eruption Office Visit 05/26/2015 [facility] [place] G62.9 Polyneuropathy, 2:40p Shannon Cancino M.D. unspecified M81.0 Age-related osteoporosis w/o current pathological fracture Z23 Encounter for immunization J45.30 Mild persistent asthma, uncomplicated Office Visit 01/09/2015 4:00p [facility] Internal Jenaro Benoit, 911.4 Injury Superficial Medicine [employer] BU[employer]ER Insect Bite Trunk Nonvenomous W/O Infect 916.4 Injury Superficial Insect Bite Hip Thigh Leg Ankle NV No Inf Office Visit 12/16/2014 11:30a [facility] Internal Jenaro Benoit, E906.4 Bite Nonvenomous Medicine [employer] BU[employer]ER Arthropod 923.21 Contusion Wrist Office Visit 11/24/2014 2:40p [facility] Internal [place] 733.00 Osteoporosis Shannon Cancino M.D. Unspec 735.8 Deformity Toe Other Acquired 493.00 Asthma Extrinsic Unspecified v03.82 Streptococcus Pneumoniae Vaccination Spec Other Office Visit 05/26/2014 2:40p [facility] Internal [place] 493.90 Asthma Unspec W/O Shannon Cancino M.D. Status Asthmaticus 472.0 Rhinitis Chronic 733.00 Osteoporosis Unspec 272.2 Hyperlipidemia Mixed V04.81 Need For Prophylactic Vaccination & Inoculation/Influenza 780.79 Malaise And Fatigue Other Office Visit 08/27/2013 9:40a [facility] Internal [place] 733.00 Osteoporosis Shannon Cancino M.D. 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 Kyphoscoliosis Idiopathic 733.00 Osteoporosis Unspec 493.00 Asthma Extrinsic Unspecified Office Visit 12/12/2012 11:00a [facility] Internal [place] V72.84 Examination Shannon Cancino M.D. Preoperative Unspec 366.8 Cataract Other 493.90 Asthma Unspec W/O Status Asthmaticus 272.2 Hyperlipidemia Mixed Office Visit 11/20/2012 1:20p [facility] [place] Barak 477.9 Rhinitis Medicine Sarah Allergic Cause Unspec 733.00 Osteoporosis Unspec 272.2 Hyperlipidemia Mixed Office Visit 05/22/2012 2:40p [facility] Internal [place] 493.90 Asthma Unspec W/O Shannon Cancino M.D. Status Asthmaticus 733.00 Osteoporosis Unspec 618.4 Prolapse Uterovaginal Unspec Office Visit 02/21/2012 11:00a [facility] Internal [place] 435.9 TIA Ischemia Shannon Cancino M.D. Cerebral Transient Unspec 493.90 Asthma Unspec W/O Status Asthmaticus 733.00 Osteoporosis Unspec V04.89 Need For Prophylactic Vaccination & Inoculation Other Virus 706.2 Sebaceous Cyst Office Visit 11/22/2011 2:40p [facility] Internal [place] 733.00 Osteoporosis Medicine Sarah Cancino Unspec 493.90 Asthma Unspec W/O Status Asthmaticus 435.9 TIA Ischemia Cerebral Transient Unspec V76.51 Special Screening For Malignant Neoplasms Colon Office Visit 05/16/2011 DO Not Use [place] 493.90 Asthma Unspec 3:00p Verifying Specialist-Britton Cancino M.D. W/O Status Asthmaticus 733.00 Osteoporosis Unspec 272.2 Hyperlipidemia Mixed Office Visit 03/12/2010 DO Not Use [facility]onda Khurram, 462 Pharyngitis Acute 1:30p Verifying Specialist-[place] N.P. Office Visit 02/10/2010 DO Not Use Vonda Varn, 913.4 Injury 1:30p Verifying Specialist-[place] N.P. Superficial Insect Bite Elbow Forearm Wrist W/O Infec Office Visit 11/04/2009 DO Not Use Verifying Specialist AT [facility] 733.00 Osteoporosis 1:00p Jesús Cancino M.D. Unspec 530.81 Esophageal Reflux Office Visit 09/30/2009 9:40a DO Not Use Verifying Specialist Spark[place] Cancino, 724.5 Backache Unspec AT Jesús Smith 787.02 Nausea Alone Office Visit 08/18/2009 8:40a DO Not Use Verifying Specialist [place] 733.00 Osteoporosis AT Jesús Cancino M.D. Unspec Office Visit 07/16/2009 9:00a DO Not Use Verifying Specialist [place] 238.2 Neoplasm Uncertain AT Jesús Cancino M.D. Skin 733.00 Osteoporosis Unspec 272.4 Hyperlipidemia Other Unspec 493.90 Asthma Unspec W/O Status Asthmaticus V04.81 Need For Prophylactic Vaccination & Inoculation/Influenza V03.82 Streptococcus Pneumoniae Vaccination Spec Other Plan of Treatment Future Appointment(s):11/13/2018 8:30 am - Lincoln Lombardo MD at [facility] Uevmpyefojkqdlaa94/09/2019 3:00 pm - [facility] Cancino M.D. at [facility] Internal Tloclgnk24/03/2019 - Vonda Paulson, N.P.J01.90 Acute sinusitis, unspecifiedNew Medication:Amoxicillin/Clavulanate Potassium 875-125 mg - one tablet by mouth twice daily for 10 daysFluticasone Propionate 50 mcg/Act - 2 sprays each nostril daily as neededComments:For your sinus infection: I sent a prescription for Augmentin to the pharmacy. Take 1 tablet every 12 hours until they are gone. Take this with a little food. Continue to use your Nasonex, 2 inhalations in each nostril, once daily.This antibiotic will treat your ear infection as well.If your symptoms do not improve call the office.H66.91 Otitis media, unspecified, right earB37.3 Candidiasis of vulva and vaginaComments:For your vaginal yeast infection: I sent in a prescription for an oral medication, Fluconazole. Takeone tablet every 3 days for 3 doses.
--- OUTSIDE RECORDS SUMMARY | 2018-11-02 08:46 | XMS REPORT | Continuity of Care Document ---
:1940 External Reference #:[id number] Author Name Minna Johnson Care Team Providers Name Role Phone Sparkle Cancino MD Care Team Information Assembly Lead Person Unavailable Sparkle Cancino MD Primary Care Physician Unavailable Payers Date Identification Numbers Payment Provider Subscriber Policy Number: [id number] Medicare Verena Velasco PayID: [id number] [address] [place] [address] Effective: 2009 Policy Number: [id number] Medicare Verena Velasco Expires: 2018 PayID: [id number] [address] [place] [address] Policy Number: [id number] [employer] Verena Velasco Group Number: [id number] [address] PayID: [id number] [place] [address] Advance Directives Description No Information Available Problems [...] Patient has never smoked Smoking Status Reviewed: 10/04/18 Patient has never smoked Allergies, Adverse Reactions, [...] Active Tablets 1000Unit 180ta 3 po qd Sparkle bs Barak Strength Sarah Calcium 600 08/27 [...] Methotrexate Active Tablets 2.5mg 3 tabs once [facility] / weekly , MD Gela Xylal Active prn for Unknown angioedema Vitamin B 12 Active 1 by mouth Unknown /0000 every day Folic Acid Active Tablets 1mg 1 by mouth Unknown every day Nitrofurantoin Active Capsules 100mg 1 by mouth Unknown Monohyd Macro twice a day for 5 days Valacyclovir 03/28 Hx Tablets 1gm 20tab take 2 by B00.2 Vonda HCL s mouth every Varn, N.P. - 12 hours as 10/04 Nasonex 10/20 Hx Suspension 50mcg/Act 17gm 2 sprays to each Laury, [employer] - nostril 11/24 once daily as needed [...] Tabs 1 po qd Sparkle lcium /Vitamin /2012 Sarath Cancino M.D. 01/13 Desloratadine 11/20 Hx Tablets 5mg 90tab 1 by mouth 477.9 Sparkle s every day Quita Cancino M.DJuice 07/31 Proair HFA 05/22 Hx Aerosol 108(90Bas 8.500 2 puffs 4 493.90 Sparkle e) mcg/ac gm times daily Barak - as needed M.DJuice 05/23 Alendronate 11/21 Hx Tablets 70mg 12tab one tablet 733.00 Sparkle /2012 s weekly Quita Cancino M.Chidi 02/20 Alendronate 07/19 Hx Tablets 70mg 12tab 1 tablet Sparkle Sodium /2009 s once Barak - weekly. M.DJuice 05/16 Take on empty stomach, do not eat or lie down for 30 min after taking Alendronate 07/19 Hx Tablets 70mg 4tabs Take 1 Sparkle Sodium Tablet Once Cotton, - Weekly On M.D. 11/21 An Empty Stomach, DO Not Eat Or Lie Down For 30 Minutes After Taking. Nexium 12/[address] 40mg 30cap 1 tablet Sparkle s once daily Cotton, - M.D. 03/12 Nexium 11/[address] 40mg 30cap 1 po qd 787.02 Sparkle /2010 s Cotton, - M.D. 12/14 Nexium 09/[address] 20mg 30cap 1 tab po qd 787.02 Sparkle s Cotton, - M.D. 11/04 Alendronate Hx Tablets 70mg 12tab one tablet Sparkle s weekly Cotton, - .D. 03/12 Advair Diskus Hx Aerosol 250-50mcg 2unit 1 Sparkle / /Dose s inhalation Cotton, - once daily M.D. 11/21 Nasonex Hx Suspension 50mcg/Act 1unit 2 sprays to Unknown /0000 s each - nostril 05/22 twice daily /2011 as needed Locoid Lipo Hx as Needed Unknown Cream /0000 - 11/24 Tamoxifen Hx 1 po qd Unknown Citrate / - 05/26 Tamoxifen Hx Tablets 20mg 1 by mouth Unknown Citrate /0000 once daily - 03/28 Jublia Hx Solution 10% apply Unknown /0000 topically - nail once 11/24 /2016 Erythromycin Hx Ointment 5mg/GM Apply A Unknown / Thin Strip - To ALL 4 05/26 Eyelid /2016 Margins Every Night AT Bedtime For Carnitine Hx Capsules 250mg 4 caps per Latov, day MD Ilir - 01/13 Doxycycline Hx [...] Wash /0000 affected - area 10/04 nightly 2019 Immunizations CPT Code Status Date Vaccine Reaction Lot # [id number] Given 05/03/2017 Influenza Virus Vaccine, No immediate [id number] Quadrivalent, Split, reaction...jh Preservative Free 36500 Given 05/13/2016 Influ Virus Vaccine, [id number] Quadrivalent, Split Virus, [place] [address] Given 05/26/2015 Influenza Virus Vaccine, [id number] Quadrivalent, Split, Preservative Free 05738 Given 11/24/2014 Pneumococcal Conjugate [id number] Vaccine 13 Valent For Intramuscular Use 76210 Given 05/26/2014 Flu Vaccine Split Virus [id number] Preservative Free For Indiv 3Yr Older 18416 Given 08/27/2013 Tdap - [id number] Tetanus/Diptheria/Acellula r Pertussis 88101 Given 05/17/2013 Flu Vaccine Split Virus [id number] Preservative Free For Indiv 3Yr Older Q2038 Given 04/25/2012 Fluzone Vaccine [id number] 03905 Given 02/21/2012 Zoster (Zostavax) [id number] 87872 Given 07/21/2009 Influenza Virus Vaccine, [id number] 5P Pandemic Formulation 35981 Given 07/16/2009 Pneumonia Vaccine 91373 Given 07/16/2009 Influenza Virus [id number] & [id number] Over Vital Signs Date Vital Result Comment 10/04/2018 2:44pm Height 68 inches 5'8" Weight [...] Result H/L Range Note Liver Function 06/06/2018 [facility] Total Protein 6.5 g/dL N 6.4-8.9 Panel [address] [place] [address] [phone] Albumin 3.9 g/dL N 3.2-5.2 Globulin 2.6 g/dL N 2-4 Albumin/Globulin Ratio 1.5 N 1-3 Total Bilirubin 0.40 mg/dL N 0.2-1.0 Direct Bilirubin 0.10 mg/dL N 0.03-0.18 Indirect Bilirubin 0.3 mg/dL N 0.3-1.0 Alkaline Phosphatase 92 U/L N 34-104 Alt 16 U/L N 7-52 Ast 21 U/L N 13-39 Iron & Iron Binding 03/15/2017 [facility] Iron 122 g/dL N 50 -212 Capacity [address] [place] [address] [phone] Unsaturated Iron Binding 207 g/dL N Total Iron Binding Capacity 329 g/dL N 250-450 % Iron Saturation 37 % N 15-55 Laboratory test 03/15/2017 [facility] TSH (Thyroid 5.10 mcIU/mL N 0.34-5.[address] Stim Horm) [place] [address] [phone] Free T4 (Free Thyroxine) 0.72 ng/dL N 0.61-1.12 Ferritin 61.0 ng/mL N 11-307 Vitamin D Total 25(Oh) 44.2 ng/mL N 30-50 Tryptase 2.6 ng/mL N <11.5 1 Complement C3 101 mg/dL N 75 - 175 2 Complement C4 23 mg/dL N 14 - 40 3 Aspergillus Fumigatus IgE <0.35 kU/L N 4 Silver Birch IgE 1.84 kU/L N 5 Stoddard Maple IgE <0.35 kU/L N 6 Cashew Allergen IgE <0.35 kU/L N 7 Cat Epithelium Allergen IgE <0.35 kU/L N 8 Cladosporium herbarum IgE <0.35 kU/L N 9 TSH Receptor Assay <1.00 IU/L N 10 Alternaria tenuis IgE Allergen <0.35 kU/L N 11 Egg White Allergen IgE 0.38 kU/L N 12 Capron Allergen IgE <0.35 kU/L N 13 Codfish Allergen IgE <0.35 kU/L N 14 Dermatophagoides farinae IgE 34.5 kU/L N 15 Dermatophagoides pteronyssinus 42.5 kU/L N 16 Dog Dander Allergen IgE 0.39 kU/L N 17 Egg Yolk Allergen IgE <0.35 kU/L N 18 Elm Tree Allergen IgE <0.35 kU/L N 19 Occitan Plantain Allergen IgE <0.35 kU/L N 20 Hazelnut Allergen IgE 1.26 kU/L N 21 Melgoza's Quarter Allergen IgE <0.35 kU/L N 22 Rast Cow's Milk <0.35 kU/L N 23 Frederick Allergen IgE 0.57 kU/L N 24 Pecan Allergen IgE <0.35 kU/L N 25 Penicillium notatum Allerg IgE <0.35 kU/L N 26 Rough Pigweed Allergen IgE <0.35 kU/L N 27 Common Ragweed (Short) Allerge <0.35 kU/L N 28 Shrimp Allergen IgE <0.35 kU/L N 29 Soybean Allergen IgE <0.35 kU/L N 30 Dominic Grass Allergen IgE <0.35 kU/L N 31 Talala Allergen IgE <0.35 kU/L N 32 Rast Wheat <0.35 kU/L N 33 White Calixto Allergen IgE <0.35 kU/L N 34 Goose Feathers Allergen IgE Ab <0.35 kU/L N 35 Immunoglobulin E (Ige) 219 kU/L Abnormal <=214 36 Peanut, IgE w/ Reflex 0.15 kU/L N 37 C1 Esterase Inhibitor Function 88 %ofnorm N 38 Peanut Component 03/15/2017 [facility] Peanut Component <0.10 kU /L N [address]ra [address] [place] [address] [phone] Peanut Component Mayra h 2 <0.10 kU/L N 40 Peanut Component Mayra h 3 <0.10 kU/L N 41 Peanut Component Mayra h 8 0.54 kU/L N 42 Peanut Component Mayra h 9 <0.10 kU/L N 43 Peanut Component Interp See Comment N 44 Rast Holland Ige 03/15/2017 [facility] Holland Tree <0.35 kU/L N <0.[address] [place] [address] [phone] Holland Conventional Class 0 N 45 CBC Auto Diff 02/04/2017 [facility] White Blood 5.6 10^3/uL N 3.5-10.[address] [place] [address] [phone] Red Blood Count 3.64 10^6/uL Low 4.0-5.4 [...] % 0.1 N Comp Metabolic Panel 02/04/2017 [facility] Sodium 139 mmol/L N 133-[address] [place] [address] [phone] Potassium 4.2 mmol/L N 3.5-5.0 Chloride 108 [...] 77.9 N >60 46 Laboratory test 10/24/2016 [facility] MRSA Screen SEE RESULT 47, [address] BELOW [place], [place] [address] [phone] Wound 10/24/2016 [facility] Wound/Misc SEE RESULT 49 Culture/Sensi [address] [place] [address] Stain [phone] Carnitine Free & 08/01/2016 [facility] Total 46 nmol/mL N 34- [address] [place] [address] [phone] Free Carnitine 42 nmol/mL N 25-54 Acylcarnitine 4 nmol/mL Abnormal 5-30 Acylcarn/Free Carnitine Ratio 0.1 N 0.1-0.8 Carnitine Interpretation See Comment N 50 Laboratory test 04/12/2016 [facility] Erythrocyte Sed 22 mm/Hr N 0-[address] [place] [address] [phone] CBC Auto Diff 04/12/2016 [facility] White Blood 5.9 N 3.5- 10.[address] Count 10^3/uL [place], [place] [address] [phone] Red Blood Count 3.94 10^6/uL Low 4.0-5.4 [...] Blood Cells % 0 N Protein 04/12/2016 [facility] Total 6.9 g/dL N 6.3 - Electrophoresis [address] Protein(Pep) 7.9 [place] [address] [phone] Albumin 3.4 g/dL N 3.4-4.7 Alpha-1 Globulin 0.3 g/dL N 0.1-0.3 Alpha-2 Globulin 1.1 g/dL Abnormal 0.6-1.0 Beta Globulin 0.8 g/dL N 0.7-1.2 Gamma Globulin 1.3 g/dL N 0.6-1.6 Albumin/Globulin Ratio 0.97 N Impression See Comment N 51 Laboratory test 04/12/2016 [facility] Vitamin B12 347 pg/mL N 180-[address] [place] [address] [phone] TSH (Thyroid Stim Horm) 5.98 mcIU/mL High 0.34-5.60 Comp Metabolic Panel 04/12/2016 [facility] Sodium 138 mmol/L N 133-[address] [place] [address] [phone] Potassium 4.6 mmol/L N 3.5-5.0 Chloride 105 [...] 73.4 N >60 53 Laboratory test 04/29/2015 [facility] Vitamin B12 423 pg/mL N 180-914 [address] [place] [address] [phone] TSH (Thyroid Stim Horm) 5.20 ?IU/mL N 0.34-5.60 CBC Auto Diff 04/29/2015 [facility] White Blood 5.3 10^3/uL N 4.8-10.[address] [place] [address] [phone] Red Blood Count 3.99 10^6/uL Low 4.0-5.4 [...] % 0 N Comp Metabolic Panel 04/29/2015 [facility] Sodium 140 mmol/L N 133-[address] [place] [address] [phone] Potassium 4.1 mmol/L N 3.5-5.0 Chloride 106 [...] Cholesterol 70 mg/dL N 59 Pthi 09/03/2013 [facility] PTH Intact 2.7 pmol/L 1.3-9.0 [address] [place] [address] [phone] Calcium (PTH Intact) 9.3 mg/dL 8.1-9.9 Comp Metabolic Panel 09/03/2013 [facility] Sodium 141 mmol/L 133-145 [address] [place] [address] [phone] Potassium 4.1 mmol/L 3.5-5.0 Chloride 108 mmol/L [...] 78.5 >60 60 Vitamin D, 25 09/03/2013 [facility] 25-Hydroxy Vitamin <4.0 ng/ mL Hydroxy [address] [place] [address] [phone] 25-Hydroxy Vitamin D3 48 ng/mL 25-Hydroxy Vitamin D Total 48 ng/mL 61 Surgical 03/12/2013 [facility] S RUN DATE: [address] 03/14/ <[place] [address] NOTE> [phone] Laboratory test 10/26/2012 [facility] Lipase 36 U/L 22-[address] [place], [place] [address] [phone] Lipid Profile 10/26/2012 [facility] Triglycerides 159 mg/dL 40-200 (Trig/Chol/HDL) [address] [place] [address] [phone] Cholesterol 177 mg/dL Less than 200 HDL Cholesterol 60 mg/dL 40-60 63 Cholesterol/HDL Ratio 3.0 Average 1-4.44 LDL Cholesterol 85.2 mg/dL Less Than 100 64 Surgical 06/01/2012 [facility] S RUN DATE: [address] 06/04/ <[place] [address] NOTE> [phone] Lipid Profile 06/16/2011 [facility] Triglyceride 123 mg/dL 40 -200 (Trig/Chol/HDL) [address] [place] [address] [phone] Cholesterol 199 mg/dL Less Than 200 66 High Density Lipoprotein 59 mg/dL 40-60 67 Cholesterol/HDL Ratio 3.37 AVERAGE 1-4.44 Low Density Lipoprotein 115 mg/dL High Less Than 100 68 Comp Metabolic Panel 06/16/2011 [facility] Sodium 139 mmol/L 135-[address] [place] [address] [phone] Potassium 3.5 mmol/L 3.5-5.0 Chloride 105 mmol/L [...] > 60 71 Vitamin D, 25 06/16/2011 [facility] 25-Hydroxy Vitamin <4.0 ng/ mL () Hydroxy [address] [place] [address] [phone] 25-Hydroxy Vitamin D3 36 ng/mL () 25-Hydroxy Vitamin D Total 36 ng/mL () 72 Surgical 02/03/2010 [facility] Surgical [address] Pathology <SEE NOTE> [place] [address] [phone] Lipid Profile 08/18/2009 [facility] Triglyceride 95 mg/dL 40 - (Trig/Chol/HD [address] 200 [address]) [place] [address] [phone] Cholesterol 185 mg/dL Less Than 200 74 High Density Lipoprotein 53 mg/dL 40-60 75 Cholesterol/HDL Ratio 3.49 AVERAGE 1-4.44 Low Density Lipoprotein 113 mg/dL High Less Than 100 76 Vitamin D, 25 08/18/2009 [facility] 25-Hydroxy Vitamin <4.0 ng/ mL () Hydroxy [address] [place] [address] [phone] 25-Hydroxy Vitamin D3 37 ng/mL () 25-Hydroxy Vitamin D Total 37 ng/mL () 77 1 Test Performed by: [place] [address] 2 Test Performed by: [place] [address] 3 Test Performed by: [place] [address] 4 Class 0 (Negative <0.35) Test Performed by: [place] [address] 5 Class 2 (Positive 0.70-3.49) Test Performed by: [place] [address] 6 Class 0 (Negative <0.35) Test Performed by: [place] [address] 7 Class 0 (Negative <0.35) Test Performed by: [place] [address] 8 Class 0 (Negative <0.35) Test Performed by: [place] [address] 9 Class 0 (Negative <0.35) Test Performed by: [place] [address] 10 REFERENCE VALUE 0.00 - 1.75 ADDITIONAL INFORMATION At a decision limit of 1.75 IU/L, this assay has 97% sensitivity and 99% specificity for detection of Graves' disease. In healthy individuals and in patients with thyroid disease without diagnosis of Graves' disease, the upper limit of anti-TSHR values are 1.22 IU/L and 1.58 IU/L, respectively (97.5th percentiles). Test Performed by: [place] [address] 11 Class 0 (Negative <0.35) Test Performed by: [place] [address] 12 Class 1 (Equivocal 0.35-0.69) Test Performed by: [place] [address] 13 Class 0 (Negative <0.35) Test Performed by: [place] [address] 14 Class 0 (Negative <0.35) Test Performed by: [place] [address] 15 Class 4 (Strongly Positive 17.5-49.9) Test Performed by: [place] [address] 16 Class 4 (Strongly Positive 17.5-49.9) Test Performed by: [place] [address] 17 Class 1 (Equivocal 0.35-0.69) Test Performed by: [place] [address] 18 Class 0 (Negative <0.35) Test Performed by: [place] [address] 19 Class 0 (Negative <0.35) Test Performed by: [place] [address] 20 Class 0 (Negative <0.35) Test Performed by: [place] [address] 21 Class 2 (Positive 0.70-3.49) Test Performed by: [address] [address] 22 Class 0 (Negative <0.35) Test Performed by: [place] [address] 23 Class 0 (Negative <0.35) Test Performed by: [address] [address] 24 Class 1 (Equivocal 0.35-0.69) Test Performed by: [place] [address] 25 Class 0 (Negative <0.35) Test Performed by: [address] [address] 26 Class 0 (Negative <0.35) Test Performed by: [place] [address] 27 Class 0 (Negative <0.35) Test Performed by: [place] [address] 28 Class 0 (Negative <0.35) Test Performed by: [place] [address] 29 Class 0 (Negative <0.35) Test Performed by: [place] [address] 30 Class 0 (Negative <0.35) Test Performed by: [place] [address] 31 Class 0 (Negative <0.35) Test Performed by: [place] [address] 32 Class 0 (Negative <0.35) Test Performed by: [place] [address] 33 Class 0 (Negative <0.35) Test Performed by: [place] [address] 34 Class 0 (Negative <0.35) Test Performed by: [place] [address] 35 Class 0 (Negative <0.35) Test Performed by: [place] [address] 36 Test Performed by: [place] [address] 37 Class 0/1 (Borderline/Equivocal 0.10-0.34) Test Performed by: [place] [address] 38 REFERENCE VALUE >67 (Normal) 41-67 (Equivocal) <41 (Abnormal) Test Performed by: [place] [address] 39 Class 0 (Negative <0.10) 40 Class [...] history of allergen exposures. Test Performed by: [address] [address] 45 This conventional EIA uses allergen-coated discs from several suppliers and an enzyme-labeled anti-IgE. CLASS INTERPRETATION: <0.35 kU/L=0, Below Detection; 0.35-0.69 kU/L=1, Low Positive; 0.70-3.49 kU/L=2, Moderate Positive; 3.50-17.49 kU/L=3, Positive; 17.50-49.99 kU/L= 4, Strong Positive; 50.00-99.99 kU/L=5, Very Strong Positive; >99.99 kU/L=6, Very Strong Positive *This test was developed and its performance characteristics determined by [employer]. It has not been cleared or approved by the U.S. Food and Drug Administration. Test Performed by: [facility] [facility], Interface [address] [place] [address] 46 Because ethnic data is not always [...] 5 Kidney failure <15 (or dialysis) 47 [id number] SEE RESULT BELOW Name: VERENA VELASCO : [address]: Dolly DEUTSCH Acct: [id number] Unit: [id number] AGE: 76 Location: [facility] Re10/24/16 SEX: F Status: REG REF SPEC: [id number] ANKITA: 10/24/16-[address] [facility] [address]: Dolly DEUTSCH REQ: [id number] RECD: 10/24/16 STATUS: COMP _ SOURCE: NASAL SPDESC: ORDERED: MRSA PCR-Nasal COMMENTS: [id number] Procedure Result Reported Site MRSA PCR (Nasal) Final 10/24/16- 2028 ML Organism 1 MRSA NEGATIVE * ML - MAIN LAB ([facility]) . END OF REPORT * ML=Testing performed at Main Lab DEPARTMENT OF PATHOLOGY, [address] [place] [address] Shmuel Velazquez M.D. Director [facility] # [id number] 49 SEE RESULT BELOW Name: VERENA VELASCO : [address]: Dolly DEUTSCH Acct: [id number] Unit: [id number] AGE: 76 Location: [facility] Re10/24/16 SEX: F Status: REG REF SPEC: [id number] ANKITA: 10/24/16-[address] [facility] [address]: Dolly DEUTSCH REQ: [id number] RECD: 10/24/16-1302 STATUS: DEVLIN GABRIEL DR: Sparkle Cancino MD _ SOURCE: [facility] SPDESC: ORDERED: Culture Stain COMMENTS: [id number] QUERIES: Specimen Description LEFT FOREHEAD Procedure Result Reported Site Wound/Misc Gram Stain Final 10/25/16- 0804 ML 2+ Epithelial Cells No Organisms Seen Wound/Misc Culture Final 10/26/16- 1227 ML Organism 1 NORMAL CLEMENTE Quantity 1+ * ML - [facility] ([facility]) . END OF REPORT * ML=Testing performed at Main Lab DEPARTMENT OF PATHOLOGY, [address] [place] [address] Shmuel Velazquez M.D. Director [facility] # [id number] 50 In this sample, the carnitine profile was essentially normal. ADDITIONAL INFORMATION This test was developed and its performance characteristics determined by [facility] in a manner consistent with CLIA requirements. This test has not been cleared or approved by the U.S. Food and Drug Administration. Test Performed by: [address] [address] [employer] Officer [employer]: Filiberto Garnica II, M.D., Ph.D. 51 RESULT: No apparent monoclonal protein on serum electrophoresis. Test Performed by: [address] [address] [employer] Officer [employer]: Filiberto Garnica II, M.D., Ph.D. 52 Normal [...] levels within this range. Test Performed by: [address] [address] [employer] Officer [employer]: Anish Rapp III, M.D. 62 RUN DATE: 03/14/13 [facility] LAB LIVE PAGE 1 RUN TIME: 3453 [address] [place], [place] [address] Specimen Inquiry Name: VERENA VELASCO : [address]: Lincoln Lombardo MD Acct: [id number] Unit: [id number] AGE: 72 Location: ENDO Re03/12/13 SEX: F Status: REG REF SPEC: [id number] ANKITA: 03/12/13- SUBM DR: Lincoln Lombardo MD REQ: [id number] RECD: 03/12/131008 STATUS: ANITA GABRIEL DR: Sparkle [...] pending to be certain the findings are technical support representative. The results will be reported in an addendum or this report will be revised if necessary. 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 Director [facility] Permit #[id number] RUN DATE: 03/14/13 [facility] LAB LIVE PAGE 2 RUN TIME: 1403 [address] [place], [place] [address] Specimen Inquiry Patient: VERENA VELASCO [id number] (Continued) GROSS DESCRIPTION (Continued) GROSS DESCRIPTION The specimen is received in formalin labeled Verena Velasco, Esophagus at 39 cm. and consists of a 0.3 x 0.3 x 0.2 cm. yan-white portion of tissue. Submitted entirely, one cassette. Signed (signature on file) Nila Norman MD 1744 END OF REPORT * ML=Testing performed at Main Lab DEPARTMENT OF PATHOLOGY, [address] [place] [address] Shmuel Velazquez M.D. Director [facility] Permit #[id number] 63 HDL Interpretation: Undesirable: High Risk: Less than 40 MG/DL Desirable: Low Risk: Greater than 60 MG/DL 64 LDL Interpretation: Low Risk Optimal Level: LDL Less than 100 MG/DL Near or Above Optimal: LDL 100-129 MG/DL Borderline High Risk: LDL 130-159 MG/DL High Risk: LDL 160-189 MG/DL Very High Risk: LDL Greater than 189 MG/DL 65 RUN DATE: 06/04/12 [facility] LAB LIVE PAGE 1 RUN TIME: 1231 [address] [facility], [place], [place] [address] Specimen Inquiry Name: VERENA VELASCO : [address]: Genoveva Hale MD Acct: [id number] Unit: [id number] AGE: 72 Location: OR Re06/01/12 SEX: F Status: REG [facility] SPEC: [id number] ANKITA: 06/01/12- SUBM DR: Genoveva Hale MD REQ: [id number] RECD: 06/01/127584 STATUS: ANITA GABRIEL DR: Nila Cancino MD _ ORDERED: LEVEL V FINAL DIAGNOSIS Breast, [...] breast tissue. 8. Micro-invasion/Invasion: Not seen. 9. ER/NE by immunohistochemistry with appropriate controls: a. ER: Pending. b. NE: Pending. B. Other Findings: Proliferative fibrocystic change. Extensive epithelial hyperplasia. C. TNM Histopathologic Stage: pTisaxMna. 1. Breast, mass/lumpectomy - LEFT BREAST TISSUE WITH NEEDLE PRE-OPERATIVE DIAGNOSIS Left breast microcalcifications; long stitch lateral, medial stitch blue, short stitch superior GROSS DESCRIPTION The specimen is received in formalin labelled Verena DreJuice Velasco, Left Breast Tissue with Needle, Usual [...] performed at Main Lab DEPARTMENT OF PATHOLOGY, [address] [place] [address] Shmuel Velazquez M.D. Director [facility] Permit #[id number] RUN DATE: 06/04/12 [facility] LAB LIVE PAGE 2 RUN TIME: [address] [place] [address] Specimen Inquiry Patient: GARETTRONAKVERENA Erickson [id number] (Continued) GROSS DESCRIPTION (Continued) GROSS DESCRIPTION (Continued) serially sectioned along its short axis and demonstrates lobulated fibrofatty breast parenchyma with focal punctuate hemorrhage near the area of the needle tip. Submitted entirely from medial to lateral in A through H. Signed (signature on file) Smhuel Velazquez MD 1231 END OF REPORT * ML=Testing performed at Main Lab DEPARTMENT OF PATHOLOGY, [address] [place] [address] Shmuel Velazquez M.D. Director [facility] Permit #[id number] 66 CHOLESTEROL INTERPRETATION: Desirable: Less than 200 [...] has been shown to interfere with the [place] method for measuring total bilirubin. Samples from [...] are 25-80 Test Performed by: [facility] Dpt of Lab Med and Pathology [address] [place] [address] Operations Officer [employer]: Anish Rapp III, M.D. 73 ---- RUN DATE: 02/05/[address] [facility] NMI LIVE PAGE 1 RUN TIME: 1412 Specimen Inquiry RUN USER: INTERFACE -- [id number] Status: REG REF Re02/03/10 Age/Sex: 69/F Unit#: [id number] Location: [address] [place], [place] [address]B. : 36 -- Specimen: [id number] SOUT Spec Date: 02/03/[address]: iLncoln coto MD Spec Type: SURGICAL P Received: [...] 02/05/10 1411 -- -- DEPARTMENT OF PATHOLOGY, [address] [place] [address] [facility] Permit #[id number] Shmuel Velazquez M.D. Director Bar Obrien M.D. [employer] Engine Mechanic Dir rody -- 74 CHOLESTEROL INTERPRETATION: Desirable: [...] are 25-80 Test Performed by: [facility] Dpt of Lab Med and Pathology [address] [place], [place] [address] Operations Officer [employer]: Anish Rapp III, M.D. Procedures Date Code Description Status 06/11/2018 [id number] Mammogram Completed 05/11/2017 64733 EKG Tracing & Interpretation Completed 04/25/2017 [id number] Mammogram Completed 04/06/2016 [id number] Mammogram Completed 06/18/2015 [id number] Bone Mineral Density Test Completed 04/07/2015 [id number] Mammogram Completed 10/01/2014 [id number] Mammogram Completed 03/19/2014 [id number] Mammogram Completed 09/19/2013 [id number] Mammogram Completed 08/15/2013 [id number] Bone Mineral Density Test Completed 03/18/2013 [id number] Mammogram Completed 03/12/2013 [id number] Colonoscopy Completed 12/12/2012 67864 EKG Tracing & Interpretation Completed 06/01/2012 [id number] Mammogram Completed 05/07/2012 [id number] Mammogram Completed 08/18/2011 [id number] Bone Mineral Density Test Completed 03/03/2009 [id number] Bone Mineral Density Test Completed 04/05/2007 [id number] Mammogram Completed Encounters Type Date Location Provider Dx Diagnosis Office Visit 03/28/[address] [facility] Internal Vonda Paulson, B00.2 Herpesviral 2:00p Medicine - N.PJuice gingivostomatitis and [place] pharyngotonsillitis R60.0 Localized edema H92.01 Otalgia, right ear Office Visit 05/11/2017 11:00a [facility] Internal Sparkle Z00.00 Encntr for Shannon Cancino M.D. general adult [place] medical exam w/o abnormal findings M81.0 Age-related osteoporosis w/o current pathological fracture L98.9 Disorder of the skin and subcutaneous tissue, unspecified R06.02 Shortness of breath R00.1 Bradycardia, unspecified Office Visit 01/13/2017 10:00a [facility] Internal [place] L50.0 Allergic Shannon Cancino M.D. urticaria [place] Office Visit 12/22/2016 11:20a [facility] Dermatology Mario Young, L02.02 Furuncle of MD face L02.423 Furuncle of right upper limb L02.424 Furuncle of left upper limb L02.426 Furuncle of left lower limb Office Visit 11/24/2016 9:00a [facility] Internal [place] L71.9 RosaceaShannon M.D. unspecified Britton J45.20 Mild intermittent asthma, uncomplicated L60.8 Other nail disorders M81.0 Age-related osteoporosis w/o current pathological fracture Office Visit 11/16/2016 2:00p [facility] Dermatology Mario Young L71.8 Other rosacea Office Visit 05/26/2016 2:20p [facility] Internal [place] G62.9 Polyneuropathy , Shannon Cancino M.D. unspecified [place] D22.9 Melanocytic nevi, unspecified Office Visit 04/11/[address] [facility] Internal [place] G62.9 Polyneuropathy, 10:40a Shannon Cancino M.D. unspecified [place] Office Visit 10/21/[address] [facility] Internal Uriel Schaeffer NP R21 Rash and other 11:40a Medicine - nonspecific skin [place] eruption Office Visit 05/26/[address] [facility] Internal [place] G62.9 Polyneuropathy, 2:40p Shannon Cancino M.D. unspecified [place] M81.0 Age-related osteoporosis w/o current pathological fracture Z23 Encounter for immunization J45.30 Mild persistent asthma, uncomplicated Office Visit 01/09/2015 4:00p [facility] Internal Jenaro Benoit, 911.4 Injury Superficial Medicine - [employer] Insect Bite Trunk [place] Nonvenomous W/O Infect 916.4 Injury Superficial Insect Bite Hip Thigh Leg Ankle NV No Inf Office Visit 12/16/2014 11:30a [facility] Internal Jenaro Benoit, E906.4 Bite Nonvenomous Medicine - [employer] Arthropod [place] 923.21 Contusion Wrist Office Visit 11/24/2014 2:40p [facility] Internal [place] 733.00 Osteoporosis Shannon Cancino M.D. Unspec [place] 735.8 Deformity Toe Other Acquired 493.00 Asthma Extrinsic Unspecified v03.82 Streptococcus Pneumoniae Vaccination Spec Other Office Visit 05/26/2014 2:40p [facility] Internal [place] 493.90 Asthma Unspec W/O Shannon Cancino M.D. Status [place] Asthmaticus 472.0 Rhinitis Chronic 733.00 Osteoporosis Unspec 272.2 Hyperlipidemia Mixed V04.81 Need For Prophylactic Vaccination & Inoculation/Influenza 780.79 Malaise And Fatigue Other Office Visit 08/27/2013 9:40a [facility] Internal [place] 733.00 Osteoporosis Shannon Cancino M.D. 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 Internal [place] 737.30 Scoliosis & 2:40p Shannon Cancino M.D. Kyphoscoliosis [place] Idiopathic 733.00 Osteoporosis Unspec 493.00 Asthma Extrinsic Unspecified Office Visit 12/12/2012 11:00a [facility] Internal [place] V72.84 Examination Shannon Cancino M.D. Preoperative [place] Unspec 366.8 Cataract Other 493.90 Asthma Unspec W/O Status Asthmaticus 272.2 Hyperlipidemia Mixed Office Visit 11/20/2012 1:20p [employer] Internal [place] 477.9 Rhinitis Shannon Cancino M.D. Allergic Cause [place] Unspec 733.00 Osteoporosis Unspec 272.2 Hyperlipidemia Mixed Office Visit 05/22/2012 2:40p [employer] Internal [place] 493.90 Asthma Unspec W/O Shannon Cancino M.D. Status [place] Asthmaticus 733.00 Osteoporosis Unspec 618.4 Prolapse Uterovaginal Unspec Office Visit 02/21/2012 11:00a [employer] Internal [place] 435.9 TIA Ischemia Shannon Cancino M.D. Cerebral [place] Transient Unspec 493.90 Asthma Unspec W/O Status Asthmaticus 733.00 Osteoporosis Unspec V04.89 Need For Prophylactic Vaccination & Inoculation Other Virus 706.2 Sebaceous Cyst Office Visit 11/22/2011 2:40p [employer] Internal [place] 733.00 Osteoporosis Shannon Cancino M.D. Unspec [place] 493.90 Asthma Unspec W/O Status Asthmaticus 435.9 TIA Ischemia Cerebral Transient Unspec V76.51 Special Screening For Malignant Neoplasms Colon Office Visit 05/16/2011 DO Not Use [place] 493.90 Asthma Unspec 3:00p Francheska Cancino M.D. W/O Status Asthmaticus 733.00 Osteoporosis Unspec 272.2 Hyperlipidemia Mixed Office Visit 03/12/2010 DO Not Use Vonda Khurram, 462 Pharyngitis Acute 1:30p [employer]-[place] N.P. Office Visit 02/10/2010 DO Not Use Vonda Khurram, 913.4 Injury 1:30p [employer]-[place] N.P. Superficial Insect Bite Elbow Forearm Wrist W/O Infec Office Visit 11/04/2009 DO Not Use [employer] AT [place] 733.00 Osteoporosis 1:00p Jesús Cancino M.D. Unspec 530.81 Esophageal Reflux Office Visit 09/30/2009 9:40a DO Not Use [employer] Spark[place] Cancino, 724.5 Backache Unspec AT Jesús Smith 787.02 Nausea Alone Office Visit 08/18/2009 8:40a DO Not Use [employer] [place] 733.00 Osteoporosis AT Jesús Cancino M.D. Unspec Office Visit 07/16/2009 9:00a DO Not Use [facility] [place] 238.2 Neoplasm Uncertain AT Jesús Cancino M.D. Skin 733.00 Osteoporosis Unspec 272.4 Hyperlipidemia Other Unspec 493.90 Asthma Unspec W/O Status Asthmaticus V04.81 Need For Prophylactic Vaccination & Inoculation/Influenza V03.82 Streptococcus Pneumoniae Vaccination Spec Other Plan of Treatment Future Appointment(s):04/08/2019 3:00 pm - Sparkle Cancino M.D. at [facility] Internal Medicine [facility]10/04/2018 - [place] Cancino M.D.R13.10 Dysphagia , unspecifiedReferral:Lincoln Lombardo MD, GastroenterologyFollow up:6 months for AWV. TAYLOR for MD in PAH92.01 Otalgia, right earComments:Since it's getting better, hold off on further evaluation and treatment
--- NOTE | 2018-11-02 09:35 | UC ---
Shortness of Breath HPI - HPI Summary HPI Summary: Last night around midnight patient woke up feeling significantly short of breath. Roxana her heart was pounding. Episode lasted several minutes and then resolved spontaneously. She went back to sleep but when she woke up this morning felt similarly short of breath. States the symptoms have been on and off only at nighttime for the past several weeks. Denies chest pain, nausea, sweats. Started Augmentin for an ear infection last night. Took her first dose about 5 hours prior to symptom onset. - History of Current Complaint Chief Complaint: UCCardiac Stated Complaint: CHEST COMPLAINT Time Seen by Provider: 11/02/18 08:26 Hx Obtained From: Patient Onset/Duration: Gradual Onset, Lasting Days, Still Present Current Severity: Moderate Dyspnea At: Rest Aggrevating Factors: Recumbent Position Alleviating Factors: Upright Position - Allergy/Home Medications Allergies/Adverse Reactions: Allergies Allergy/AdvReac Type Severity Reaction Status Date / Time chicken derived Allergy positive Verified 11/02/18 08:29 allergy test ibuprofen AdvReac GI Upset Verified 11/02/18 08:29 NUTS Allergy Unknown INSIDE OF Uncoded 11/02/18 08:29 MOUTH ROUGH ENVIRONMENTAL Allergy POST NASAL Uncoded 11/02/18 08:29 DRIP Home Medications: Home Medications Amoxicillin/Clavulanate TAB* [Augmentin TAB 875*] 1 tab PO BID 11/02/18 [ History Confirmed 11/02/18] PMH/Surg Hx/FS Hx/Imm Hx Respiratory History: Asthma Cancer History: Breast Cancer - Surgical History Surgical History: Yes Surgery Procedure, Year, and Place: SEGMENTAL RIGHT BREAST MASTECTOMY, 1995, Lt BREAST MASTECTOMY 2011. PESSARY - WILL HAVE REMOVED PRIOR TO MRI. CATARACTS - BLACK - Family History Known Family History: Positive: Cardiac Disease Negative: Hypertension, Diabetes - Social History Alcohol Use: Occasionally Substance Use Type: None Smoking Status (MU): Never Smoked Tobacco Review of Systems All Other Systems Reviewed And Are Negative: Yes Constitutional: Positive: Negative Respiratory: Positive: Shortness Of Breath Cardiovascular: Positive: Palpitations. Negative: Chest Pain Gastrointestinal: Positive: Negative Neurological: Positive: Negative Physical Exam Triage Information Reviewed: Yes Appearance: Well-Appearing, No Pain Distress, Well-Nourished Vital Signs: Initial Vital Signs Temp 98.7 F 11/02/18 08:20 Pulse 71 11/02/18 08:20 Resp 18 11/02/18 08:20 BP 132/72 11/02/18 08:20 Pulse Ox 100 11/02/18 08:20 Vital Signs Reviewed: Yes Eyes: Positive: Conjunctiva Clear ENT: Positive: Hearing grossly normal Neck: Positive: Supple Respiratory Exam: Normal Cardiovascular Exam: Normal Abdomen Description: Positive: Nontender, Soft Musculoskeletal: Positive: No Edema Neurological: Positive: Alert Psychological: Positive: Age Appropriate Behavior Skin: Negative: Rashes Diagnostics - EKG Cardiac Rate: NL - 62bpm Cardiac Rhythm: Sinus: Normal Ectopy: None ST Segment: Normal Shortness of Breath Dx - Course Course Of Treatment: PT OFFERED TRANSPORT TO THE ED BY AMBULANCE BUT DECLINES. ADVISED THAT BY NOT TRAVELING IN A MONITORED SETTING SHE COULD BE RISKING WORSENING OF HER CONDITION THAT COULD POSE A THREAT TO HER LIFE, HEALTH AND MEDICAL SAFETY. SHE VERBALIZES UNDERSTANDING AND CONTINUES TO DECLINE AMBULANCE TRANSFER. - Differential Dx/Diagnosis Provider Diagnosis: Shortness of breath Discharge - Sign-Out/Discharge Documenting (check all that apply): Patient Departure All imaging exams completed and their final reports reviewed: No Studies - Discharge Plan Condition: Stable Disposition: TRANS HIGHER [facility] Patient Education Materials: Shortness of Breath (ED) Referrals: Sparkle Cancino MD [Primary Care Provider] - If Needed Additional Instructions: GO DIRECTLY TO THE [facility] ED FROM HERE FOR FURTHER EVALUATION. YOU HAVE DECLINED TRANSFER TO THE ED BY AMBULANCE. BE ADVISED THAT BY NOT TRAVELING IN A MONITORED SETTING YOU COULD BE RISKING WORSENING OF YOUR CONDITION THAT COULD POSE A THREAT TO YOUR LIFE, HEALTH AND MEDICAL SAFETY. - Billing Disposition and Condition Condition: STABLE Disposition: Trans Higher Lvl of Care Fac
== END 2018-11-02 09:35 | disposition short-term general hospital (02) ==
LOC: UCEAST 08:18
DX: R06.02 Shortness of breath (principal); J45.909 Unspecified asthma, uncomplicated; Z91.018 Allergy to other foods; Z88.8 Allergy status to other drugs, medicaments and biological substances; Z91.09 Other allergy status, other than to drugs and biological substances
CPT/HCPCS: 93005; 99212; G0463

== ENCOUNTER 2018-11-02 10:03 | Emergency (ER) | payer MEDICARE, OTHER ==
--- NOTE | 2018-11-02 10:38 | ED ---
HPI Cardiac - HPI Summary HPI Summary: This pt is an 78 y/o female presenting to [facility] by [facility] for waking up feeling SOB. Pt reports she woke up last night at midnight feeling SOB and felt her heart was pounding. She notes this episode lasted about 3 minutes and then it spontaneously resolved. Pt went back to sleep. Whens he got up this morning she had a similar episode feeling SOB and her legs weak. She went to Urgent Care where she had an EKG and was referred to the ED. Denies chest pain, nausea, vomiting, diaphoresis. Pt currently reports feeling better and currently denies SOB or palpitations. Pt has been going to a fitness center where she does pilates. She started Augmentin for an ear infection last night. PMHx includes scoliosis, breast CA, asthma. - History of Current Complaint Chief Complaint: EDShortnessOfBreath Stated Complaint: SOB,RACING HEART, SENT FROM [facility] PER PT Time Seen by Provider: 11/02/18 10:23 Hx Obtained From: Patient Onset/Duration: Started Hours Ago, Still Present Timing: Lasting Minutes Initial Severity: Moderate Current Severity: None Pain Intensity: 0 Pain Scale Used: 0-10 Numeric Character: Fast, Pounding Aggravating Factor(s): Nothing Alleviating Factor(s): Nothing Associated Signs and Symptoms: Positive: Weakness, Shortness of Breath. Negative: Chest Pain, Fever, Diaphoresis, Nausea, Vomiting - Allergy/Home Medications Allergies/Adverse Reactions: Allergies Allergy/AdvReac Type Severity Reaction Status Date / Time chicken derived Allergy positive Verified 11/02/18 08:29 allergy test ibuprofen AdvReac GI Upset Verified 11/02/18 08:29 NUTS Allergy Unknown INSIDE OF Uncoded 11/02/18 08:29 MOUTH ROUGH ENVIRONMENTAL Allergy POST NASAL Uncoded 11/02/18 08:29 DRIP Home Medications: Home Medications Amoxicillin/Clavulanate TAB* [Augmentin TAB 875*] 875 mg PO BID 11/02/18 [ History Confirmed 11/02/18] Fluconazole 150 MG (NF) [Diflucan 150 mg (NF)] 150 mg PO Q3D 11/02/18 [History Confirmed 11/02/18] LevoCETirizine TAB (NF) [Xyzal TAB (NF)] 5 mg PO DAILY PRN 11/02/18 [History Confirmed 11/02/18] Methotrexate TAB* 7.5 mg PO WEEKLY 11/02/18 [History Confirmed 11/02/18] Metronidazole (TOPICAL)(NF) [Metrocream (NF)] 0.75 % TOPICAL QPM 11/02/18 [ History Confirmed 11/02/18] Multivitamin/Iron/Folic Acid [Centrum Women Tablet] 1 tab PO DAILY 11/02/18 [ History Confirmed 11/02/18] Nitrofurantoin Macrocrystals* [Macrodantin 100 mg*] 100 mg PO BID 11/02/18 [ History Confirmed 11/02/18] PMH/Surg Hx/FS Hx/Imm Hx Endocrine/Hematology History: Denies: Hx Diabetes Cardiovascular History: Denies: Hx Hypertension, Hx Pacemaker/ICD Respiratory History: Reports: Hx Asthma - WILL BRING INHALERS GI History: Reports: Hx Gastroesophageal Reflux Disease - ON MEDS History: Denies: Hx Renal Disease Musculoskeletal History: Reports: Hx Osteoporosis, Hx Scoliosis Sensory History: Reports: Hx Cataracts - BLACK CATARACTS, Hx Contacts or Glasses, Hx Hearing Aid - WON'T WEAR Opthamlomology History: Reports: Hx Cataracts - BLACK CATARACTS, Hx Contacts or Glasses Neurological History: Reports: Hx Migraine - SINCE SHE WAS A TEEN, USUALLY MONTHLY Psychiatric History: Denies: Hx Panic Disorder - Cancer History Cancer Type, Location and Year: breast cancer Hx Chemotherapy: No Hx Radiation Therapy: Yes - BREAST - Surgical History Surgery Procedure, Year, and Place: SEGMENTAL RIGHT BREAST MASTECTOMY, 1995, Lt BREAST MASTECTOMY 2011. PESSARY - WILL HAVE REMOVED PRIOR TO MRI. CATARACTS - BLACK Hx Anesthesia Reactions: No Infectious Disease History: No Infectious Disease History: Denies: Hx Clostridium Difficile, Hx Hepatitis, Hx Human Immunodeficiency Virus (HIV), Hx of Known/Suspected MRSA, Hx Shingles, Hx Tuberculosis, Hx Known/ Suspected VRE, Hx Known/Suspected VRSA, History Other Infectious Disease, Traveled Outside the [place] in Last 30 Days - Family History Known Family History: Positive: Cardiac Disease Negative: Hypertension, Diabetes - Social History Alcohol Use: Occasionally Substance Use Type: Reports: None Smoking Status (MU): Never Smoked Tobacco Review of Systems Negative: Fever, Skin Diaphoresis ENT: Other - POS: ear infection Positive: Palpitations. Negative: Chest Pain Positive: Shortness Of Breath Negative: Nausea Positive: Weakness All Other Systems Reviewed And Are Negative: Yes Physical Exam - Summary Physical Exam Summary: VITAL SIGNS: Reviewed. GENERAL: Patient is a well-developed and nourished female who is lying comfortable in the stretcher. Patient is not in any acute respiratory distress. HEAD AND FACE: No signs of trauma. No ecchymosis, hematomas or skull depressions. No sinus tenderness. EYES: PERRLA, EOMI x 2, No injected conjunctiva, no nystagmus. EARS: Hearing grossly intact. Ear canals and tympanic membranes are within normal limits. MOUTH: Oropharynx within normal limits. NECK: Supple, trachea is midline, no adenopathy, no JVD, no carotid bruit, no c- spine tenderness, neck with full ROM. CHEST: Symmetric, no tenderness at palpation LUNGS: Clear to auscultation bilaterally. No wheezing or crackles. CVS: Regular rate and rhythm, S1 and S2 present, no murmurs or gallops appreciated. ABDOMEN: Soft, non-tender. No signs of distention. No rebound no guarding, and no masses palpated. Bowel sounds are normal. EXTREMITIES: FROM in all major joints, no edema, no cyanosis or clubbing. Scoliosis. NEURO: Alert and oriented x 3. No acute neurological deficits. Speech is normal and follows commands. SKIN: Dry and warm Triage Information Reviewed: Yes Vital Signs On Initial Exam: Initial Vitals Temp Pulse Resp BP Pulse Ox 99.3 F 71 20 145/86 99 11/02/18 10:07 11/02/18 10:07 11/02/18 10:07 11/02/18 10:07 11/02/18 10:07 Vital Signs Reviewed: Yes Diagnostics - Vital Signs Vital Signs Temp Pulse Resp BP Pulse Ox 11/02/18 10:07 99.3 F 71 20 145/86 99 - Laboratory Result Diagrams: 11/02/18 10:37 11/02/18 10:37 Lab Statement: Any lab studies that have been ordered have been reviewed, and results considered in the medical decision making process. - Radiology Chest XR Radiology Interpretation Completed By: Radiologist Summary of Radiographic Findings: IMPRESSION: Stigmata of advanced obstructive lung disease. No acute pulmonary or cardiac process evident. Dr. Araiza has reviewed this report. - EKG 10:36 Cardiac Rate: NL - at 61 bpm EKG Rhythm: Sinus Rhythm Summary of EKG Findings: No ST elevations. Re-Evaluation - Re-Evaluation First Eval Re-Evaluation Time: 12:23 Comment: I reviewed all results with the pt. She reports her in June 2018 and has been going through a lot since then. Pt believes this may be associated to her symptoms. She will be discharged home. Disposition - Course Assessment/Plan: This patient is a 78-year-old female who presents to the emergency department with a chief complaint of shortness of breath. Test results without any significant abnormality. EKG shows a sinus rhythm without any ST elevations. Chest x-ray impression shows no acute pathology. I discussed all the findings and test results with the patient and the need to follow up with the primary care physician. The patient understands and agrees. She reports that her just recently and she has been having these anxiety and panic attacks. Possibly the patient had an anxiety attack. I discussed all the findings and test results with the patient. Patient was instructed to return to the emergency room immediately if any of the symptoms return worsens. Plan of care was discussed with the patient and understands and agrees. All questions were answered at patient satisfaction. There were no further complaints or concerns. Lung exam before discharge: CTA B/L. Good air exchange. No wheezing or crackles heard. CVS: S1 and S2 present. No murmurs appreciated. Patient is alert and oriented x 3. Patient is hemodynamically stable. Patient will be discharged home with follow up from her PCP in the next 2-3 days. - Diagnoses Provider Diagnoses: SOB (shortness of breath), Anxiety Discharge - Sign-Out/Discharge Documenting (check all that apply): Patient Departure - Discharge home Patient Received Moderate/Deep Sedation with Procedure: No - Discharge Plan Condition: Stable Disposition: HOME Patient Education Materials: Shortness of Breath (ED) Referrals: Sparkle Cancino MD [Primary Care Provider] - Additional Instructions: FOLLOW UP WITH YOUR PRIMARY CARE PROVIDER WITHIN ONE WEEK FOR HIGH BLOOD PRESSURE NOTED TODAY. RETURN TO THE EMERGENCY DEPARTMENT FOR ANY WORSENING OR NEW SYMPTOMS. - Billing Disposition and Condition Condition: STABLE Disposition: Home - Attestation Statements Document Initiated by Scribe: Yes Documenting Scribe: Roxie Garcia Provider For Whom Scribe is Documenting (Include Credential): Lamonte Araiza MD Scribe Attestation: Roxie Bonilla, scribed for Lamonte Araiza MD on 11/02/18 at 1845. Scribe Documentation Reviewed: Yes Provider Attestation: The documentation as recorded by the scribe, Roxie Garcia accurately reflects the service I personally performed and the decisions made by me, Lamonte Araiza MD Status of Scribe Document: Viewed
[2018-11-02 10:45] LABS: ABS Basophils 0.1 10^3/ul (0-0.2); ABS Eosinophils 0.4 10^3/ul (0-0.6); ABS Lymphocytes 1.6 10^3/ul (1.0-4.8); ABS Monocytes 0.5 10^3/ul (0-0.8); ABS Neutrophils 3.3 10^3/ul (1.5-7.7); ABS Nucleated RBC 0 10^3/ul; Eosinophil % 6.3 %; Hematocrit 38 % (33-41); Hemoglobin 12.7 g/dL (12.0-16.0); Lymphocyte % 27.6 %; Mean Corpuscular HGB Conc 33 g/dL (31-36); Mean Corpuscular Hemoglobin 31 pg (27-31); Mean Corpuscular Volume 93 fL (80-97); Nucleated Red Blood Cells % 0.1; Platelet Count 280 10^3/uL (150-450); Red Cell Distribution Width 15 % (10.5-15); White Blood Count 5.9 10^3/uL (3.5-10.8)
[2018-11-02 11:10] LABS: Albumin/Globulin Ratio 1.3 (1-3); BUN/Creatinine Ratio 15.3 (8-20); Calcium 9.3 mg/dL (8.6-10.3); EGFR African American 77.9 (>60); EGFR Non-African American 64.4 (>60); Globulin 3.1 g/dL (2-4); Potassium 3.9 mmol/L (3.5-5.0); Total Bilirubin 0.6 mg/dL (0.2-1.0); Total Protein 7.1 g/dL (6.4-8.9)
[2018-11-02 11:12] LABS: Troponin I 0.01 ng/mL (<0.04)
[2018-11-02 12:40] VITALS: BP 167/72
== END 2018-11-02 12:44 | disposition home or self-care (01) ==
LOC: ED 10:03
DX: R06.02 Shortness of breath (principal); F41.9 Anxiety disorder, unspecified; Z85.3 Personal history of malignant neoplasm of breast; J45.909 Unspecified asthma, uncomplicated; K21.9 Gastro-esophageal reflux disease without esophagitis; M81.0 Age-related osteoporosis without current pathological fracture; M41.9 Scoliosis, unspecified; Z91.018 Allergy to other foods; Z88.8 Allergy status to other drugs, medicaments and biological substances; Z91.09 Other allergy status, other than to drugs and biological substances
CPT/HCPCS: 36415; 71046; 80053; 83605; 84484; 85025; 93005; 99282

== ENCOUNTER 2022-06-25 17:59 | Inpatient (IN) ==
[2022-06-25] MEDS ORDERED: Iodixanol (CONTRAST) 320 MG/ML 100 ML SDV IV ONE (18:24)
[2022-06-25 18:25] LABS: ABS Basophils 0.1 10^3/ul (0-0.2); ABS Eosinophils 0.2 10^3/ul (0-0.6); ABS Lymphocytes 2.4 10^3/ul (1.0-4.8); ABS Monocytes 0.4 10^3/ul (0-0.8); ABS Neutrophils 3.6 10^3/ul (1.5-7.7); Eosinophil % 2.7 %; Hematocrit 34 % (35-47); Hemoglobin 11.5 g/dL (12.0-16.0); Lymphocyte % 35.8 %; Mean Corpuscular HGB Conc 34 g/dL (31-36); Mean Corpuscular Hemoglobin 31 pg (27-31); Mean Corpuscular Volume 93 fL (80-97); Mean Platelet Volume 8.6 fL (7.4-10.4); Platelet Count 217 10^3/uL (150-450); Red Blood Count 3.69 10^6 /uL (3.70-4.87); Red Cell Distribution Width 14 % (10-15); White Blood Count 6.7 10^3/uL (3.5-10.8)
[2022-06-25 18:37] LABS: Activated Partial Thrombo Time 29.3 seconds (26.0-38.0); INR 0.98 (0.89-1.11)
[2022-06-25 19:07] LABS: ALT 13 U/L (7-52); Albumin 4.2 g/dL (3.2-5.2); Albumin/Globulin Ratio 1.8 (1-3); Alkaline Phosphatase 61 U/L (35-149); Blood Urea Nitrogen 17 mg/dL (6-24); CO2 Carbon Dioxide 21 mmol/L (22-32); Calcium 8.8 mg/dL (8.6-10.3); Chloride 105 mmol/L (101-111); Cholesterol 148 mg/dL; Globulin 2.3 g/dL (2-4); Glucose 85 mg/dL (70-100); HDL Cholesterol 70.5 mg/dL; LDL Cholesterol 62 mg/dL; Sodium 135 mmol/L (135-145); Total Protein 6.5 g/dL (6.4-8.9); Triglycerides 80 mg/dL; eGFR CKD-EPI 77.2 (>60)
[2022-06-25 19:11] LABS: Anion Gap 9 mmol/L (2-11)
[2022-06-25 20:28] LABS: Potassium Redraw 3.4 mmol/L (3.5-5.0)
[2022-06-25 21:25] LABS: Urine Appearance Cloudy; Urine Bilirubin Negative (Negative); Urine Blood 2+ (Negative); Urine Color Yellow; Urine Glucose Negative (Negative); Urine Ketones Trace (Negative); Urine Nitrite Negative (Negative); Urine Protein Negative (Negative); Urine Specific Gravity 1.023 (1.002-1.030); Urine Urobilinogen Negative (Negative)
[2022-06-25 21:28] LABS: Urine Bacteria Absent (Absent); Urine Red Blood Cell Trace(0-2/hpf) (Absent); Urine Squamous Epithelial Cell Present (Absent); Urine White Blood Cell Absent (Absent)
[2022-06-25] MEDS: Enoxaparin 40 MG/0.4 ML SYR SUBCUT SCH (22:31)
[2022-06-26] MEDS ORDERED: KCL 20 MEQ/100 ML IVPREMIX 20 MEQ/100 ML BAG IV ONE (07:40)
[2022-06-26 12:53] LABS: Calcium 8.2 mg/dL (8.6-10.3); Potassium 3.9 mmol/L (3.5-5.0)
[2022-06-26] MEDS ORDERED: Albuterol HFA INHALER 8 gm MDI INH PRN (15:31)
[2022-06-26] MEDS: Mometasone/Formoter 100/5 MDI INH SCH (19:34)
[2022-06-26] MEDS: Enoxaparin 40 MG/0.4 ML SYR SUBCUT SCH (22:30)
[2022-06-27 06:54] LABS: Calcium 8.6 mg/dL (8.6-10.3); Magnesium 2.1 mg/dL (1.9-2.7); Potassium 4.1 mmol/L (3.5-5.0); eGFR CKD-EPI 69.5 (>60)
[2022-06-27 07:02] LABS: ABS Eosinophils 0.3 10^3/ul (0-0.6); ABS Lymphocytes 1.7 10^3/ul (1.0-4.8); ABS Monocytes 0.4 10^3/ul (0-0.8); ABS Neutrophils 2.8 10^3/ul (1.5-7.7); Eosinophil % 6.4 %; Hematocrit 34 % (35-47); Hemoglobin 11.5 g/dL (12.0-16.0); Lymphocyte % 31.9 %; Mean Corpuscular HGB Conc 34 g/dL (31-36); Mean Corpuscular Hemoglobin 31 pg (27-31); Mean Corpuscular Volume 93 fL (80-97); Mean Platelet Volume 8.7 fL (7.4-10.4); Platelet Count 196 10^3/uL (150-450); Red Cell Distribution Width 14 % (10-15); White Blood Count 5.3 10^3/uL (3.5-10.8)
[2022-06-27] MEDS: Mometasone/Formoter 100/5 MDI INH SCH (07:28)
[2022-06-27 14:09] VITALS: BP 134/67
== END 2022-06-27 16:29 | disposition home or self-care (01) | DRG 103 ==
LOC: ED 17:59 → EDHOLD 17:59 → SUATTDRO 21:26 → EDHOLD 06-26 09:13 → MEDTELE 06-26 11:09
PROVIDERS: ADMIT Internal Medicine; ATTEND Hospitalist

== ENCOUNTER 2022-10-10 16:23 | Inpatient (IN) ==
[2022-10-10] MEDS ORDERED: Iodixanol (CONTRAST) 320 MG/ML 100 ML SDV IV ONE (16:35)
[2022-10-10 16:39] LABS: ABS Basophils 0.1 10^3/ul (0-0.2); ABS Eosinophils 0.5 10^3/ul (0-0.6); ABS Lymphocytes 2.4 10^3/ul (1.0-4.8); ABS Monocytes 0.7 10^3/ul (0-0.8); ABS Neutrophils 3.4 10^3/ul (1.5-7.7); Eosinophil % 6.7 %; Hematocrit 34 % (35-47); Hemoglobin 11.5 g/dL (12.0-16.0); Lymphocyte % 33.9 %; Mean Corpuscular HGB Conc 34 g/dL (31-36); Mean Corpuscular Hemoglobin 31 pg (27-31); Mean Corpuscular Volume 90 fL (80-97); Mean Platelet Volume 8.1 fL (7.4-10.4); Nucleated Red Blood Cells % 0.1; Platelet Count 226 10^3/uL (150-450); Red Blood Count 3.75 10^6 /uL (3.70-4.87); Red Cell Distribution Width 14 % (10-15); White Blood Count 6.9 10^3/uL (3.5-10.8)
[2022-10-10 16:50] LABS: Activated Partial Thrombo Time 32.4 seconds (26.0-38.0); INR 1.11 (0.88-1.18)
[2022-10-10 17:34] LABS: Albumin 4.4 g/dL (3.2-5.2); Anion Gap 10 mmol/L (2-11); Blood Urea Nitrogen 11 mg/dL (6-24); CO2 Carbon Dioxide 21 mmol/L (22-32); Calcium 9.6 mg/dL (8.6-10.3); Chloride 91 mmol/L (101-111); Creatinine, Serum 0.76 mg/dL (0.51-0.95); Globulin 2.3 g/dL (2-4); Glucose 99 mg/dL (70-100); Potassium 4.4 mmol/L (3.5-5.0); Sodium 122 mmol/L (135-145); Total Protein 6.7 g/dL (6.4-8.9); eGFR CKD-EPI 77.2 (>60)
[2022-10-10 17:35] LABS: ALT 18 U/L (7-52); AST 28 U/L (13-39); Albumin/Globulin Ratio 1.9 (1-3); Alkaline Phosphatase 70 U/L (35-149); Cholesterol 128 mg/dL; LDL Cholesterol 29 mg/dL; Triglycerides 122 mg/dL
[2022-10-10] MEDS ORDERED: diazePAM INJ CARPUJECT 5 MG/ML SYRINGE IV PRN (20:12)
[2022-10-10 20:49] LABS: Urine Appearance Clear; Urine Bilirubin Negative (Negative); Urine Blood 1+ (Negative); Urine Color Straw; Urine Glucose Negative (Negative); Urine Ketones Trace (Negative); Urine Nitrite Negative (Negative); Urine Protein Negative (Negative); Urine Specific Gravity 1.014 (1.002-1.030); Urine Urobilinogen Negative (Negative)
[2022-10-10 20:52] LABS: Urine Bacteria Absent (Absent); Urine Red Blood Cell Trace(0-2/hpf) (Absent); Urine White Blood Cell Trace(0-5/hpf) (Absent)
[2022-10-10] MEDS ORDERED: NS 0.9% 1000 ml BAG 1,000 ML IV ONE (20:57)
[2022-10-10 22:06] LABS: Osmolality Serum 256 mOsm/kg (275-295)
[2022-10-10 22:06] LABS: Urine Osmo 246 mOsm/kg (150-1150)
[2022-10-10] MEDS: Mometasone/Formoter 100/5 MDI INH SCH (23:10)
[2022-10-10 23:14] LABS: TSH Ultra Thyroid Stim Horm 6.86 mcIU/mL (0.34-5.60)
[2022-10-11] MEDS ORDERED: Acetaminophen IV 1 GM/100ML 1,000 MG/100 ML BAG IV PRN (01:20)
[2022-10-11 01:47] LABS: Calcium 7.9 mg/dL (8.6-10.3); Creatinine, Serum 0.73 mg/dL (0.51-0.95); Potassium 3.6 mmol/L (3.5-5.0)
[2022-10-11] MEDS ORDERED: NS 0.9% 1000 ml BAG 1,000 ML IV SCH ×2 (02:00→12:30)
[2022-10-11 04:02] LABS: C Reactive Protein < 1.00 mg/L (<8.01)
[2022-10-11] MEDS: Mometasone/Formoter 100/5 MDI INH SCH ×2 (11:35→19:38)
[2022-10-11] MEDS: Fluticasone NASAL SPRAY 50MCG 16 gm SPRAY BTL INTRANASAL SCH (13:12)
[2022-10-11 18:39] LABS: Calcium 8.1 mg/dL (8.6-10.3); Creatinine, Serum 0.88 mg/dL (0.51-0.95); eGFR CKD-EPI 64.8 (>60)
[2022-10-11] MEDS ORDERED: D5W 1000 ml BAG 1,000 ML IV SCH ×2 (19:00→23:14)
[2022-10-11 22:47] LABS: Creatinine, Serum 0.8 mg/dL (0.51-0.95); Potassium 3.6 mmol/L (3.5-5.0); eGFR CKD-EPI 72.6 (>60)
[2022-10-12 00:03] LABS: Free T4 0.83 ng/dL (0.61-1.12)
[2022-10-12 06:51] LABS: ABS Eosinophils 0.4 10^3/ul (0-0.6); ABS Lymphocytes 1.5 10^3/ul (1.0-4.8); ABS Monocytes 0.6 10^3/ul (0-0.8); ABS Neutrophils 3.5 10^3/ul (1.5-7.7); Eosinophil % 6.2 %; Hematocrit 29 % (35-47); Lymphocyte % 24.9 %; Mean Corpuscular HGB Conc 34 g/dL (31-36); Mean Corpuscular Hemoglobin 31 pg (27-31); Mean Corpuscular Volume 91 fL (80-97); Mean Platelet Volume 7.9 fL (7.4-10.4); Nucleated Red Blood Cells % 0.1; Platelet Count 166 10^3/uL (150-450); Red Blood Count 3.19 10^6 /uL (3.70-4.87); Red Cell Distribution Width 15 % (10-15); White Blood Count 5.9 10^3/uL (3.5-10.8)
[2022-10-12 07:23] LABS: Creatinine, Serum 0.75 mg/dL (0.51-0.95); Potassium 3.7 mmol/L (3.5-5.0); eGFR CKD-EPI 78.5 (>60)
[2022-10-12] MEDS: Mometasone/Formoter 100/5 MDI INH SCH ×2 (07:39→19:37)
[2022-10-12] MEDS: Fluticasone NASAL SPRAY 50MCG 16 gm SPRAY BTL INTRANASAL SCH (08:48)
[2022-10-12 11:35] LABS: Magnesium 1.9 mg/dL (1.9-2.7)
[2022-10-12] MEDS ORDERED: Potassium Chlor 20 meq TAB.ER PO ONE (19:30)
[2022-10-12] MEDS ORDERED: Magnesium Sulfate IV 1GM/100ML 1 GM/100 ML BAG IV ONE (19:30)
[2022-10-13 07:51] LABS: Calcium 8.3 mg/dL (8.6-10.3); Creatinine, Serum 0.63 mg/dL (0.51-0.95); Magnesium 2.1 mg/dL (1.9-2.7); Potassium 4.2 mmol/L (3.5-5.0); eGFR CKD-EPI 87.4 (>60)
[2022-10-13] MEDS: Mometasone/Formoter 100/5 MDI INH SCH (08:00)
[2022-10-13] MEDS: Fluticasone NASAL SPRAY 50MCG 16 gm SPRAY BTL INTRANASAL SCH (09:17)
[2022-10-13 09:44] VITALS: BP 128/58
== END 2022-10-13 13:40 | DRG 92 ==
LOC: EDHOLD 16:23 → ED 16:23 → EDHOLD 10-11 10:55 → MEDTELE 10-11 11:23
PROVIDERS: ADMIT Student in an Organized Health Care Education/Training Program; ATTEND Student in an Organized Health Care Education/Training Program